=== PATIENT | female | born 1980 | race Caucasian/White ===

== ENCOUNTER 2020-10-19 14:53 | Emergency (ER) | payer OTHER, SELFPAY ==
--- NOTE | ~2020-10-19 | XR_ITS ---
EXAMINATION: XR ANKLE, LEFT CLINICAL INFORMATION: Injury. COMPARISON: None TECHNIQUE: AP, lateral, and mortise views of the left ankle. FINDINGS: Diffuse ankle soft tissue swelling. There is a mildly displaced transverse fracture of the lateral malleolus with intra-articular extension. No definite medial or posterior malleolar fractures identified. There is slight widening of the lateral clear space of the ankle mortise. Tibiotalar joint effusion. Base of the 5th metatarsal and anterior process of the calcaneus are intact. Os trigonum. Achilles tendon insertional enthesopathy. XR/XR ankle LT min 3V IMPRESSION: Mild ankle soft tissue swelling. Mildly displaced intra-articular transverse fracture of the lateral malleolus. Tibiotalar joint effusion. Mild widening of the lateral aspect of the ankle mortise.
[2020-10-19 15:10] VITALS: BP 131/79; PULSE 100; RESP 18; TEMP 36.7; O2SAT 96; BMI 80.6
--- NOTE | 2020-10-19 16:10 | ED_ITS ---
HPI - Extremity Injury (Lower) General Chief Complaint: Extremity Injury, Lower Stated Complaint: left ankle inj Time Seen by Provider: 10/19/20 15:09 History of Present Illness HPI Narrative: Patient complains of left ankle injury today when she tripped on her dog and twisted her ankle, no other injury no head injury no neck pain no back pain Related Data Previous Rx's Medication Instructions Recorded ibuprofen 600 mg PO Q6H PRN #20 tab 10/19/20 walker #1 ea 10/19/20 Allergies Allergy/AdvReac Type Severity Reaction Status Date / Time No Known Allergies Allergy Verified 10/19/20 15:09 Review of Systems Review of Systems: Positive for left ankle pain and swelling Negatives are no dizziness no weakness no fainting no head injury no neck pain no headache no nausea vomiting no rib pain no chest pain no numbness weakness or tingling Yes all other systems are reviewed and are negative ON LICENSE OF [facility] Past Medical History Source: nursing notes reviewed Medical History (Updated 10/19/20 @ 16:20 by NADINE Castellanos) Fibromyalgia Social History Social History Advance Directives: No Advance Directives Information Provided: No Physical Exam Vital Signs: Vital Signs: Last Vital Signs Temp 98.0 F 10/19/20 15:10 Pulse 100 10/19/20 15:10 Resp 18 10/19/20 15:10 BP 131/79 10/19/20 15:10 Pulse Ox 96 10/19/20 15:10 Body Mass Index 80.6 Patient is sitting in a chair, no acute distress comfortable relaxed cooperative A&O x3 Head is normocephalic atraumatic Neck is supple and nontender Respiratory no respiratory distress Extremities the left ankle lateral malleolus is tender and very swollen with some mild ecchymosis, the left knee has no tenderness has full range of motion no swelling, no tenderness over fibula head Other extremities are normal Neural no sensory deficit, no motor deficit Course Course Course Narrative: X-ray showed mildly displaced intra-articular transverse fracture of the lateral malleolus, it showed an effusion and it showed mild widening of the lateral aspect of the ankle mortise Patient is given boot and a walker as she could not ambulate well with crutches and will follow with Orthopedics Discharge Plan Discharge Clinical Impression: Ankle fracture Qualifiers: Encounter type: initial encounter Fracture type: closed Laterality: left Qualified Code(s): S82.892A - Other fracture of left lower leg, initial encounter for closed fracture Patient Disposition: Home, Self-Care Additional Instructions: Follow with orthopedist this week Return any time any concerns Prescriptions: New ibuprofen 600 mg tablet 600 mg PO Q6H PRN (Reason: pain) Qty: 20 RF: 0 (DME) walker Misc See Rx Instructions .ROUTE .MEDSUPPLY Qty: 1 RF: 0 Referrals: Valarie Bennett MD [Physician] - 2 days (Patient with mildly displaced fracture of the lateral malleolus with a widening of the ankle mortise)
== END 2020-10-19 16:36 | disposition home or self-care (01) ==
PROVIDERS: Emergency Provider Emergency Medicine Emergency Medical Services
DX: S82.892A Other fracture of left lower leg, initial encounter for closed fracture (principal); M79.662 Pain in left lower leg; W01.0XXA Fall on same level from slipping, tripping and stumbling without subsequent striking against object, initial encounter; Y93.K1 Activity, walking an animal; Y92.480 Sidewalk as the place of occurrence of the external cause; Y99.8 Other external cause status
CPT/HCPCS: 73610; 99283

== ENCOUNTER → 2020-10-26 13:36 | Outpatient (BNVA) | payer OTHER, SELFPAY | PROVIDERS: Visit Provider Physician Assistant | DX: S82.832A Other fracture of upper and lower end of left fibula, initial encounter for closed fracture (principal) | CPT/HCPCS: 99202 ==

== ENCOUNTER 2020-11-13 08:29 | Outpatient (REF) | payer OTHER, SELFPAY | END 2020-11-13 08:30 | disposition home or self-care (01) | LOC: HO.HOSX 08:29 | PROVIDERS: Visit Provider Physician Assistant | DX: Z13.89 Encounter for screening for other disorder (principal) ==

== ENCOUNTER 2021-02-01 16:46 | Emergency (ER) | payer MEDICARE, SELFPAY ==
--- NOTE | ~2021-02-01 | US_ITS ---
EXAMINATION: PELVIC ULTRASOUND CLINICAL INFORMATION: Vaginal bleeding COMPARISON: None TECHNIQUE: Both transabdominal and endovaginal scanning was performed. FINDINGS: An anteverted anteflexed uterus is present measuring 8.7 x 4.0 x 4.9 cm. The endometrium measured 1 cm in thickness. The ovaries were seen. Transabdominal exam only. Right measures 2.5 x 2.1 x 2.3 cm for a volume of 6.3 mL and appeared normal. The left measured 2.8 x 2.4 x 2.2 cm from 7.7 mL and appeared normal. No free fluid was present in the cul-de-sac US/US pelvic and transvaginal IMPRESSION: No significant abnormality is seen.
[2021-02-01 18:07] VITALS: BP 132/70; PULSE 90; RESP 18; TEMP 37.1; O2SAT 100; BMI 39.4
[2021-02-01 18:47] LABS: Basophils Percent Auto 0.6 % (0-2); Eosinophils Absolute Auto 0.1 X10*3/uL (0.0-0.4); Eosinophils Percent Auto 1.5 % (0-4); Hematocrit 37.3 % (37-47); Hemoglobin 12.1 g/dl (12.0-16.0); Imm Gran Abs Auto 0.03 X10*3/uL (0.00-0.03); Imm Gran Pct Auto 0.5 % (0.0-0.4); Lymphocytes Absolute Auto 1.7 X10*3/uL (1.2-4.9); Lymphocytes Percent Auto 26.2 % (20-40); MANUAL DIFF FLAG NO; Mean Corpuscular HGB Conc 32.4 g/dl (31.0-35.0); Mean Corpuscular Hemoglobin 28.2 pg (27.0-33.0); Mean Corpuscular Volume 86.9 fL (80-98); Mean Platelet Volume 9.2 fL (9.4-12.3); Monocytes Absolute Auto 0.4 X10*3/uL (0.1-1.2); Monocytes Percent Auto 5.7 % (2-11); Neutrophils Absolute Auto 4.3 X10*3/uL (2.0-8.3); Neutrophils Percent Auto 65.5 % (45-73); Platelet Count 297 X10*3/uL (160-400); Red Blood Count 4.29 X10*6/uL (4.20-5.50); Red Cell Distribution Width 13.1 % (11.0-16.0); White Blood Count 6.6 X10*3/uL (4.8-10.8)
[2021-02-01 19:11] LABS: Anion Gap 12 (12-20); Blood Urea Nitrogen 6 mg/dL (9-16); Calcium 8.5 mg/dL (8.4-10.2); Carbon Dioxide 27 mmol/L (22-29); Chloride 106 mmol/L (96-108); Creatinine Clr Calc Pharmacy 115.8; Estimated Glomerular Filt Rate > 60; Glucose Random 98 mg/dL (60-115); Sodium 141 mmol/L (135-145)
[2021-02-01 20:00] VITALS: BP 106/75; PULSE 85; RESP 16; TEMP 37.1; O2SAT 98
--- NOTE | 2021-02-01 20:09 | ED.FEMALEGU ---
HPI - Female Genitourinary General Chief complaint: Vaginal Bleeding Stated complaint: vaginal bleeding Source: patient Mode of arrival: ambulatory Limitations: no limitations History of Present Illness HPI Narrative: 40-year-old female presents with abnormal vaginal bleeding for approximately 1 week. States that she has been going through 2 pads and tampons per hour for the past several days. She also reports large dark blood clots. She had a similar episode approximately 2 months ago which resolved on its own. She does not report any vaginal trauma or sexually transmitted infections, denies abnormal vaginal discharge. She does not report fevers, chills, abdominal pain or distention, dysuria, nausea vomiting diarrhea constipation, edema, shortness of breath, shortness breath on exertion, or any other concerning symptoms. MD elicited complaint: vaginal bleeding Onset (ago): week(s) (1) Location of symptoms: vaginal Severity: moderate Severity scale (1-10): 3 Quality of pain: cramping Consistency: intermittent Vaginal discharge: none Vaginal bleeding: heavy, dark red and clots Exacerbating factors: movement Relieving factors: none Associated symptoms: denies other symptoms Sexual activity: Yes Patient : No Related Data Home Medications Medication Instructions Recorded Confirmed amitriptyline 100 mg tablet 100 mg PO BEDTIME 10/26/20 losartan 50 mg tablet 50 mg PO DAILY 10/26/20 omeprazole 20 mg capsule,delayed 20 mg PO DAILY 10/26/20 release zolpidem 10 mg tablet 10 mg PO BEDTIME PRN 10/26/20 Previous Rx's Medication Instructions Recorded ibuprofen 600 mg PO Q6H PRN #20 tab 10/19/20 walker #1 ea 10/19/20 ibuprofen 800 mg tablet 800 mg PO Q6-8H PRN 30 Days #120 10/26/20 tab Allergies Allergy/AdvReac Type Severity Reaction Status Date / Time No Known Allergies Allergy Verified 02/01/21 18:07 Review of Systems Review of Systems: Constitutional: No Fever, No Chills ENT/Mouth: No sore throat, No Rhinorrhea Eyes: No Eye Pain, No Redness Cardiovascular: No Chest Pain, No SOB Respiratory: No Cough, No Sputum, No Wheezing Gastrointestinal: No Nausea, No Vomiting, No Diarrhea, positive abdominal cramping pain Genitourinary: positive irregular bleeding, No Dysuria, No Urinary Frequency, positive pelvic pain Musculoskeletal: No Myalgias Skin: No rash Neuro: No Weakness, No Headache Psych: No Anxiety/Panic, No Depression Heme/Lymph: No bruising, No Lymphadenopathy Endocrine: No Polyuria, No Polydipsia Yes all other systems are reviewed and are negative [facility] Past Medical History Attestation statement: The following information was validated with the patient. Source: old records reviewed Medical History Fibromyalgia Hypertension IBS (irritable bowel syndrome) Social History Social History Alcohol intake: never Advance Directives: No Advance Directives Information Provided: No Patient : No Current occupational status: disabled Physical Exam Vital Signs: Vital Signs: Last Vital Signs Temp 98.2 F 02/01/21 21:22 Pulse 72 02/01/21 22:00 Resp 16 02/01/21 22:00 BP 138/76 02/01/21 22:00 Pulse Ox 97 02/01/21 22:00 Body Mass Index 39.4 Appearance: Alert. Oriented X3. No acute distress. Eyes: Pupils equal, round and reactive to light. ENT: Pharynx normal. Neck: Normal inspection. Neck supple. CVS: Normal heart rate and rhythm. Pulses normal. Respiratory: No respiratory distress. Breath sounds normal. Abdomen: Soft and nontender. Obese. Skin: Skin warm and dry. Normal skin color. Normal skin turgor. Extremities: No lower extremity edema. Neuro: No motor deficit. No sensory deficit. : External Female Exam: normal external appearance Speculum Exam - Vagina: normal appearance of the vagina and abnormal vaginal discharge bloody Speculum Exam - Cervix: normal appearance of the cervix, normal palpation and Cervical os closed Bimanual exam- vagina & uterus: normal bimanual exam, normal palpation, non-tender, no cervical motion tenderness and not enlarged Bimanual Exam- Adnexa, other: normal adnexae Course Course Course Narrative: 40-year-old female presents with abnormal vaginal bleeding. Pelvic exam completed, RN as emergency room doctor. Cervical os is normal, no tissue in the os noted. No bleeding noted, scant amount of blood in the vaginal vault. No clotting. Patient does not report any risk of sexually transmitted infection, denies vaginal trauma. Will order pelvic ultrasound. Pelvic ultrasound is normal. Patient will follow-up with Dr. Alvarado for abnormal uterine bleeding. Patient is not anemic, H&H 12.1/37.3. HCG is negative. Patient verbalized understanding of and agrees to plan of care discharge home. MDM - Female Genitourinary MDM Narrative Medical decision making narrative: Dysfunction uterine bleeding, fibroids, uterine mass Medical Records Attestation: I reviewed the patient's medical records. Lab Data Attestation: I reviewed the patient's lab results. Result diagrams: 02/01/21 18:32 02/01/21 18:32 Labs: Lab Results 02/01/21 02/01/21 02/01/21 Range/Units 18:32 18:32 18:32 WBC 6.6 (4.8-10.8) X10*3/uL RBC 4.29 (4.20-5.50) X10*6/uL Hgb 12.1 (12.0-16.0) g/dl Hct 37.3 (37-47) % MCV 86.9 (80-98) fL MCH 28.2 (27.0-33.0) pg MCHC 32.4 (31.0-35.0) g/dl RDW 13.1 (11.0-16.0) % Plt Count 297 (160-400) X10*3/uL MPV 9.2 L (9.4-12.3) fL Immature Gran % (Auto) 0.5 H (0.0-0.4) % Neut % (Auto) 65.5 (45-73) % Lymph % (Auto) 26.2 (20-40) % [place] % (Auto) 5.7 (2-11) % Eos % (Auto) 1.5 (0-4) % Baso % (Auto) 0.6 (0-2) % Lymph # (Auto) 1.7 (1.2-4.9) X10*3/uL [place] # (Auto) 0.4 (0.1-1.2) X10*3/uL Eos # (Auto) 0.1 (0.0-0.4) X10*3/uL Baso # (Auto) 0.0 (0.0-0.2) X10*3/uL Abs Immat Gran (auto) 0.03 (0.00-0.03) X10*3/uL Absolute Neuts (auto) 4.3 (2.0-8.3) X10*3/uL Absolute Nucleated RBC 0.000 (0.0-0.012) X10*3/uL Nucleated RBC % (auto) 0.0 (0.0-0.2) /100WBC Sodium 141 (135-145) mmol/L Potassium 4.0 (3.3-5.1) mmol/L Chloride 106 (96-108) mmol/L Carbon Dioxide 27 (22-29) mmol/L Anion Gap 12 (12-20) BUN 6 L (9-16) mg/dL Creatinine 0.76 (0.5-1.4) mg/dL Estim Creat Clear Calc 115.8 Estimated GFR > 60 Random Glucose 98 (60-115) mg/dL Calcium 8.5 (8.4-10.2) mg/dL Beta HCG, Quant < 2 mIU/mL Urine Color Urine Appearance Urine pH (5.0-8.0) Ur Specific [place] (1.005-1.025) Urine Protein (NEG-TRACE) MG/DL Urine Glucose (UA) (NEG) MG/DL Urine Ketones (NEG) MG/DL Urine Blood (NEG) Urine Nitrite (NEG) Ur Leukocyte Esterase (NEG) Urine RBC (0) /HPF Urine WBC (0-4) /HPF Ur Squamous Epith Cells /LPF Urine Bacteria /LPF Urine Mucus /LPF 02/01/21 Range/Units 21:24 WBC (4.8-10.8) X10*3/uL RBC (4.20-5.50) X10*6/uL Hgb (12.0-16.0) g/dl Hct (37-47) % MCV (80-98) fL MCH (27.0-33.0) pg MCHC (31.0-35.0) g/dl RDW (11.0-16.0) % Plt Count (160-400) X10*3/uL MPV (9.4-12.3) fL Immature Gran % (Auto) (0.0-0.4) % Neut % (Auto) (45-73) % Lymph % (Auto) (20-40) % [place] % (Auto) (2-11) % Eos % (Auto) (0-4) % Baso % (Auto) (0-2) % Lymph # (Auto) (1.2-4.9) X10*3/uL [place] # (Auto) (0.1-1.2) X10*3/uL Eos # (Auto) (0.0-0.4) X10*3/uL Baso # (Auto) (0.0-0.2) X10*3/uL Abs Immat Gran (auto) (0.00-0.03) X10*3/uL Absolute Neuts (auto) (2.0-8.3) X10*3/uL Absolute Nucleated RBC (0.0-0.012) X10*3/uL Nucleated RBC % (auto) (0.0-0.2) /100WBC Sodium (135-145) mmol/L Potassium (3.3-5.1) mmol/L Chloride (96-108) mmol/L Carbon Dioxide (22-29) mmol/L Anion Gap (12-20) BUN (9-16) mg/dL Creatinine (0.5-1.4) mg/dL Estim Creat Clear Calc Estimated GFR Random Glucose (60-115) mg/dL Calcium (8.4-10.2) mg/dL Beta HCG, Quant mIU/mL Urine Color PINK Urine Appearance CLOUDY Urine pH 6.5 (5.0-8.0) Ur Specific [place] 1.020 (1.005-1.025) Urine Protein 1+ H (NEG-TRACE) MG/DL Urine Glucose (UA) NEG (NEG) MG/DL Urine Ketones NEG (NEG) MG/DL Urine Blood 3+ H (NEG) Urine Nitrite NEG (NEG) Ur Leukocyte Esterase NEG (NEG) Urine RBC 76-150 H (0) /HPF Urine WBC 0 (0-4) /HPF Ur Squamous Epith Cells 2+ /LPF Urine Bacteria NONE /LPF Urine Mucus 2+ /LPF Imaging Data Pelvic ultrasound: Attestation: I personally reviewed and interpreted this imaging study as follows: Radiologist's impression: TECHNIQUE: Both transabdominal and endovaginal scanning was performed. FINDINGS: An anteverted anteflexed uterus is present measuring 8.7 x 4.0 x 4.9 cm. The endometrium measured 1 cm in thickness. The ovaries were seen. Transabdominal exam only. Right measures 2.5 x 2.1 x 2.3 cm for a volume of 6.3 mL and appeared normal. The left measured 2.8 x 2.4 x 2.2 cm from 7.7 mL and appeared normal. No free fluid was present in the cul-de-sac US/US pelvic and transvaginal IMPRESSION: No significant abnormality is seen. Discharge Plan Discharge Clinical Impression: Dysfunctional uterine bleeding Patient Disposition: Home, Self-Care Instructions: Dysfunctional Uterine Bleeding (ED) Additional Instructions: You were evaluated for abnormal vaginal bleeding. Your pelvic exam was normal, the pelvic ultrasound that was completed was also normal. Please follow-up with OBGYN, I referred you to Dr Alvarado. Please call and request an appointment. Thank you for choosing this emergency department for evaluation. Please follow-up with primary care physician as needed. Return to the emergency department for any new, concerning, or worsening symptoms. Prescriptions: No Action ibuprofen 800 mg tablet 800 mg PO Q6-8H PRN (Reason: pain) 30 Days Qty: 120 RF: 0 ibuprofen 600 mg tablet 600 mg PO Q6H PRN (Reason: pain) Qty: 20 RF: 0 (DME) walker Misc See Rx Instructions .ROUTE .MEDSUPPLY Qty: 1 RF: 0 Referrals: Arnie Alvarado MD [Physician] - 2 days (Dysfunction uterine bleeding) Interventions: ED Discharge Assessment Last Done: 02/01/21 22:39 Discharge Date/Time: 02/01/21 22:39
--- NOTE | 2021-02-01 20:15 | PC.NURSE ---
Pelvic exam with speculum performed at the bedside by AHMET Luong. No abnormalities noted at this time. No pain with exam. Plan to obtain labs and ultrasound. Will continue to monitor.
[2021-02-01 20:36] LABS: HCG Quantitative < 2 mIU/mL
[2021-02-01 21:22] VITALS: BP 113/71; PULSE 83; RESP 16; TEMP 36.8; O2SAT 99
[2021-02-01 21:33] LABS: Glucose Urine UA NEG (NEG); Leukocyte Esterase Urine NEG (NEG); Nitrite Urine NEG (NEG); PH 6.5 (5.0-8.0); Urine Blood 3+ (NEG); Urine Ketones NEG (NEG); Urine Protein 1+ MG/DL (NEG-TRACE)
[2021-02-01 21:35] LABS: Appearance Urine CLOUDY; Color Urine PINK; WBC Urine 0 /HPF (0-4)
[2021-02-01 21:36] LABS: Mucus Urine 2+ /LPF; Squamous Epithelial Cell Urine 2+ /LPF
[2021-02-01 22:00] VITALS: BP 138/76; PULSE 72; RESP 16; O2SAT 97
== END 2021-02-01 22:39 | disposition home or self-care (01) ==
PROVIDERS: Nurse Practitioner Family; Emergency Provider Internal Medicine
DX: N93.8 Other specified abnormal uterine and vaginal bleeding (principal); I10 Essential (primary) hypertension
CPT/HCPCS: 36415; 76830; 76856; 80048; 81001; 84702; 85025; 99283; 99284

== ENCOUNTER 2022-10-15 13:18 | Inpatient (IN) | payer MEDICARE, MEDICAID, SELFPAY ==
--- NOTE | ~2022-10-15 | XR_ITS ---
EXAMINATION: XR ANKLE, RIGHT CLINICAL INFORMATION: Right ankle fracture. COMPARISON: None TECHNIQUE: AP, lateral, and mortise views of the right ankle. FINDINGS: Mildly displaced transversely oriented distal fibular fracture. Ankle mortise is congruent. Talar dome intact. Soft tissue swelling about the ankle. Moderate posterior calcaneal enthesophyte. XR/XR ankle RT 2V IMPRESSION: Mildly displaced transversely oriented distal fibular fracture, compatible with a supination-abduction inversion injury.
[2022-10-15 13:23] VITALS: BP 146/92; PULSE 134; RESP 16; TEMP 36.8; O2SAT 98; BMI 40.5
--- NOTE | 2022-10-15 13:24 | ED_ITS ---
HPI - Psych General Chief Complaint: Psychiatric Symptoms <NADINE Urena - Last Filed: 10/15/22 13:32> Stated Complaint: crisis <NADINE Urena - Last Filed: 10/15/22 13:32> Time Seen by Provider: 10/15/22 13:39 <NADINE Urena - Last Filed: 10/15/22 13:32> Source: other (Patient's nurse and triage note) <Danni Noonan MD - Last Filed: 10/15/22 21:38> Mode of arrival: ambulatory <Danni Noonan MD - Last Filed: 10/15/22 21:38> Limitations: no limitations <Danni Noonan MD - Last Filed: 10/15/22 21:38> History of Present Illness HPI Narrative: Patient comes to the emergency room accompanied by her boyfriend. Seems the patient attempted suicide several days ago by ingesting several tablets metoprolol. Patient was seen at [facility] and discharge. Today, patient attempted taking a bottle of metoprolol with intention of ending her life. However, her boyfriend stopped her from doing so. Patient did not ingest any tablets. History for H&P has been obtained from the patient's nurse and triage notes. Patient is in her room, seems very distressed, states that the voices are very loud and telling her that they want to hurt her. Patient screaming in the room, yelling back at the voices <Danni Noonan MD - Last Filed: 10/15/22 21:38> Related Data Home Medications: Home Medications Medication Instructions Recorded Confirmed metoprolol tartrate 25 mg tablet 1 tab PO BID 10/15/22 10/15/22 Previous Rx's Medication Instructions Recorded ibuprofen 600 mg tablet 600 mg PO Q6H PRN pain #20 tabs 10/19/20 walker #1 ea 10/19/20 <NADINE Urena - Last Filed: 10/15/22 13:32> Allergies/Adverse Reactions: Allergies Allergy/AdvReac Type Severity Reaction Status Date / Time oxaprozin [From Daypro] Allergy Rash Verified 10/15/22 13:34 Sulfa (Sulfonamide Allergy Rash Verified 10/15/22 13:33 Antibiotics) tramadol [From Ultram] Allergy Rash Verified 10/15/22 13:34 <NADINE Urena - Last Filed: 10/15/22 13:32> Review of Systems Review of Systems: Yes Unobtainable due to mental condition <Danni Noonan MD - Last Filed: 10/15/22 21:38> [facility] Past Medical History Medical History: Medical History (Updated 10/15/22 @ 17:54 by Danni Noonan MD) Fibromyalgia Hypertension IBS (irritable bowel syndrome) Suicide attempt <NADINE Urena - Last Filed: 10/15/22 13:32> Social History Social History: Social History Alcohol intake: never Advance Directives: No Advance Directives Information Provided: No Current occupational status: disabled <NADINE Urena - Last Filed: 10/15/22 13:32> Physical Exam Vital Signs: Vital Signs: Last Vital Signs Temp 98.3 F 10/15/22 20:41 Pulse 114 H 10/15/22 20:41 Resp 20 10/15/22 20:41 BP 148/88 H 10/15/22 20:41 Pulse Ox 95 10/15/22 20:41 O2 Del Method 10/15/22 20:41 BMI result Body Mass Index 40.5 <NADINE Urena - Last Filed: 10/15/22 13:32> Vital Signs: Last Vital Signs Temp 98.3 F 10/15/22 20:41 Pulse 114 H 10/15/22 20:41 Resp 20 10/15/22 20:41 BP 148/88 H 10/15/22 20:41 Pulse Ox 95 10/15/22 20:41 O2 Del Method 10/15/22 20:41 BMI result Body Mass Index 40.5 <Danni Noonan MD - Last Filed: 10/15/22 21:38> Const: Other: Appearance: Alert. Since very distressed, yelling at the voices that she is hearing telling them to shut up Eyes: Pupils equal, round and reactive to light. ENT: Pharynx normal. Neck: Normal inspection. Neck supple. No lymph nodes noted. No crepitus CVS: Tachycardic, regular rhythm, Pulses normal. Normal S1 and S2 Respiratory: No respiratory distress. Breath sounds normal. No Wheezing. No rales Abdomen: Soft and nontender. No rigidity. No distention. Skin: Skin warm and dry. Normal skin color. Normal skin turgor. Extremities: No lower extremity edema. No Lacerations. No Rash Neuro: Cranial nerves 2-12 grossly intact Psych: Very anxious, seems that patient is hearing voice actively and is responding to them by yelling at the voices <Danni Noonan MD - Last Filed: 10/15/22 21:38> Course Course Course Narrative: RME: 42 y/o F, with a PMHx of schizophrenia last hospitalized at [facility] in March, here for evaluation of suicidal attempt two nights ago and auditory hallucinations. Partner states that she took 12 tablets of metoprolol two nights ago attempt to end her life and was seen at [facility]. Pt reports that she gets monthly psychiatric injections but has missed the last two months. Partner states that she does not use illicit drugs or alcohol. Currently on crutches s/p fall on 10/07. HR 130s, actively responding to internal stimuli. Labs ordered for medical clearance. Will need to see CARE team, to go to POD directly. PO Zyprexa ordered for now. <NADINE Urena - Last Filed: 10/15/22 13:32> Medications Administered Generic Name Dose Route Start Last Admin Trade Name Freq PRN Reason Stop Dose Admin Cefuroxime Axetil 500 mg 10/15/22 21:00 10/15/22 20:43 Cefuroxime Axetil 500 Mg Tablet PO 500 mg BID IAM Administration Metoprolol Tartrate 25 mg 10/15/22 21:00 10/15/22 20:43 Metoprolol Tartrate 25 Mg Tablet PO 25 mg BID IAM Administration Protocol Discontinued Medications Generic Name Dose Route Start Last Admin Trade Name Freq PRN Reason Stop Dose Admin Diphenhydramine HCl 50 mg 10/15/22 14:47 10/15/22 15:02 Diphenhydramine Hcl 25 Mg Capsule PO 10/15/22 14:48 50 mg ONCE ONE Administration Haloperidol 5 mg 10/15/22 14:47 10/15/22 15:02 Haloperidol 5 Mg Tablet PO 10/15/22 14:48 5 mg ONCE ONE Administration Lorazepam 2 mg 10/15/22 14:47 10/15/22 15:02 Lorazepam 1 Mg Tablet PO 10/15/22 14:48 2 mg ONCE ONE Administration Olanzapine 5 mg 10/15/22 13:32 10/15/22 14:16 Olanzapine 5 Mg Tablet PO 10/15/22 13:33 5 mg ONCE ONE Administration <NADINE Urena - Last Filed: 10/15/22 13:32> Medications Administered Generic Name Dose Route Start Last Admin Trade Name Freq PRN Reason Stop Dose Admin Cefuroxime Axetil 500 mg 10/15/22 21:00 10/15/22 20:43 Cefuroxime Axetil 500 Mg Tablet PO 500 mg BID IAM Administration Metoprolol Tartrate 25 mg 10/15/22 21:00 10/15/22 20:43 Metoprolol Tartrate 25 Mg Tablet PO 25 mg BID IAM Administration Protocol Discontinued Medications Generic Name Dose Route Start Last Admin Trade Name Freq PRN Reason Stop Dose Admin Diphenhydramine HCl 50 mg 10/15/22 14:47 10/15/22 15:02 Diphenhydramine Hcl 25 Mg Capsule PO 10/15/22 14:48 50 mg ONCE ONE Administration Haloperidol 5 mg 10/15/22 14:47 10/15/22 15:02 Haloperidol 5 Mg Tablet PO 10/15/22 14:48 5 mg ONCE ONE Administration Lorazepam 2 mg 10/15/22 14:47 10/15/22 15:02 Lorazepam 1 Mg Tablet PO 10/15/22 14:48 2 mg ONCE ONE Administration Olanzapine 5 mg 10/15/22 13:32 10/15/22 14:16 Olanzapine 5 Mg Tablet PO 10/15/22 13:33 5 mg ONCE ONE Administration <Danni Noonan MD - Last Filed: 10/15/22 21:38> Medical Decision Making Medical Decision Making MDM Narrative: -separate sh was ordered from triage, patient took p.o. however, patient is still hearing voices, patient is very agitated by the voices she is hearing. P.o. Haldol, Ativan and Benadryl were given to the patient which she took willingly. -of patient's labs are pending -patient is on a Section 12 -care team consult pending -physician observation started at 15:13 -patient has UTI, patient being given p.o. cefuroxime. -21:37, care team evaluated the patient, recommends inpatient bed search. As mentioned above, patient is already on a Section 12 <Danni Noonan MD - Last Filed: 10/15/22 21:38> Differential Diagnosis Differential Diagnoses: The differential diagnosis associated with the presentation includes (Anxiety, depression, schizophrenia, substance abuse) <Danni Noonan MD - Last Filed: 10/15/22 21:38> Admission/Observation Consideration of admission/observation: Escalation of care including admission/observation considered (Patient is on a Section 12, waiting to be seen by behavioral health network. Unlikely that the patient will be discharged) <Danni Noonan MD - Last Filed: 10/15/22 21:38> Lab Data Result Diagrams: 10/15/22 16:30 10/15/22 16:30 <NADINE Urena - Last Filed: 10/15/22 13:32> Labs: Lab Results 10/15/22 10/15/22 10/15/22 Range/Units 01:31 14:14 14:14 WBC (4.8-10.8) X10*3/uL RBC (4.20-5.50) X10*6/uL Hgb (12.0-16.0) g/dl Hct (37.0-47.0) % MCV (80.0-98.0) fL MCH (27.0-33.0) pg MCHC (31.0-35.0) g/dl RDW (11.0-16.0) % Plt Count (160-400) X10*3/uL MPV (9.4-12.3) fL Immature Gran % (Auto) (0.0-0.4) % Neut % (Auto) (45-73) % Lymph % (Auto) (20-40) % Alexander % (Auto) (2-11) % Eos % (Auto) (0-4) % Baso % (Auto) (0-2) % Lymph # (Auto) (1.2-4.9) X10*3/uL Alexander # (Auto) (0.1-1.2) X10*3/uL Eos # (Auto) (0.0-0.4) X10*3/uL Baso # (Auto) (0.0-0.2) X10*3/uL Abs Immat Gran (auto) (0.00-0.03) X10*3/uL Absolute Neuts (auto) (2.0-8.3) x10*3/uL Absolute Nucleated RBC (0.0-0.012) X10*3/uL Nucleated RBC % (auto) (0.0-0.2) /100WBC Sodium (135-145) mmol/L Potassium (3.3-5.1) mmol/L Chloride (96-108) mmol/L Carbon Dioxide (22-29) mmol/L Anion Gap (12-20) BUN (9-16) mg/dL Creatinine (0.5-1.4) mg/dL Estim Creat Clear Calc Estimated GFR Random Glucose (60-115) mg/dL Calcium (8.4-10.2) mg/dL Magnesium (1.6-2.6) mg/dL Total Bilirubin (0.0-1.0) mg/dL Direct Bilirubin (0.0-0.5) mg/dL AST (5-31) U/L ALT (0-31) U/L Alkaline Phosphatase (39-117) U/L Total Protein (6.5-8.0) g/dL Albumin (3.5-5.0) g/dL Urine Color Yellow Urine Appearance Turbid Urine pH 5.5 (5.0-9.0) Ur Specific [place] 1.020 (1.005-1.025) Urine Protein Negative (Neg-Trace) mg/dL Urine Glucose (UA) Negative (Negative) mg/dL Urine Ketones 15 (Negative) mg/dL Urine Blood Trace H (Negative) Urine Nitrite Positive H (Negative) Ur Leukocyte Esterase Large (3+) H (Negative) Urine RBC 0-2 (0-2) /HPF Urine WBC >50 H (0-5) /HPF Ur Squamous Epith Cells 11-20 (0-2) /HPF Urine Bacteria 4+ (None Seen) Hyaline Casts 11-20 (0-2) /LPF Urine Test NEGATIVE (NEGATIVE) Salicylates (15-30) mg/dL Urine Opiates Screen (Not Detect) Urine Fentanyl Screen (Not Detect) Acetaminophen (<30) mcg/mL Ur Barbiturates Screen (Not Detect) Ur Phencyclidine Scrn (Not Detect) Ur Amphetamines Screen (Not Detect) U Benzodiazepines Scrn (Not Detect) Urine Cocaine Screen (Not Detect) U Marijuana (THC) Screen (Not Detect) Ethyl Alcohol mg/dL COVID-19 (CELINE) Negative (Negative) COVID-19 Clin Com See Note 10/15/22 10/15/22 10/15/22 Range/Units 14:14 16:30 16:30 WBC 6.6 (4.8-10.8) X10*3/uL RBC 4.63 (4.20-5.50) X10*6/uL Hgb 10.9 L (12.0-16.0) g/dl Hct 35.6 L (37.0-47.0) % MCV 76.9 L (80.0-98.0) fL MCH 23.5 L (27.0-33.0) pg MCHC 30.6 L (31.0-35.0) g/dl RDW 15.0 (11.0-16.0) % Plt Count 358 (160-400) X10*3/uL MPV 8.9 L (9.4-12.3) fL Immature Gran % (Auto) 0.3 (0.0-0.4) % Neut % (Auto) 73.9 H (45-73) % Lymph % (Auto) 20.3 (20-40) % Alexander % (Auto) 4.4 (2-11) % Eos % (Auto) 0.5 (0-4) % Baso % (Auto) 0.6 (0-2) % Lymph # (Auto) 1.3 (1.2-4.9) X10*3/uL Alexander # (Auto) 0.3 (0.1-1.2) X10*3/uL Eos # (Auto) 0.0 (0.0-0.4) X10*3/uL Baso # (Auto) 0.0 (0.0-0.2) X10*3/uL Abs Immat Gran (auto) 0.02 (0.00-0.03) X10*3/uL Absolute Neuts (auto) 4.9 (2.0-8.3) x10*3/uL Absolute Nucleated RBC 0.000 (0.0-0.012) X10*3/uL Nucleated RBC % (auto) 0.0 (0.0-0.2) /100WBC Sodium 141 (135-145) mmol/L Potassium 4.2 (3.3-5.1) mmol/L Chloride 105 (96-108) mmol/L Carbon Dioxide 26 (22-29) mmol/L Anion Gap 14 (12-20) BUN 11 (9-16) mg/dL Creatinine 0.87 (0.5-1.4) mg/dL Estim Creat Clear Calc 100.6 Estimated GFR > 60 Random Glucose 114 (60-115) mg/dL Calcium 9.2 D (8.4-10.2) mg/dL Magnesium 2.0 (1.6-2.6) mg/dL Total Bilirubin 0.4 (0.0-1.0) mg/dL Direct Bilirubin < 0.2 (0.0-0.5) mg/dL AST 15 (5-31) U/L ALT 12 (0-31) U/L Alkaline Phosphatase 102 (39-117) U/L Total Protein 6.9 (6.5-8.0) g/dL Albumin 4.1 (3.5-5.0) g/dL Urine Color Urine Appearance Urine pH (5.0-9.0) Ur Specific [place] (1.005-1.025) Urine Protein (Neg-Trace) mg/dL Urine Glucose (UA) (Negative) mg/dL Urine Ketones (Negative) mg/dL Urine Blood (Negative) Urine Nitrite (Negative) Ur Leukocyte Esterase (Negative) Urine RBC (0-2) /HPF Urine WBC (0-5) /HPF Ur Squamous Epith Cells (0-2) /HPF Urine Bacteria (None Seen) Hyaline Casts (0-2) /LPF Urine Test (NEGATIVE) Salicylates < 5.0 L (15-30) mg/dL Urine Opiates Screen Not Detected (Not Detect) Urine Fentanyl Screen Not Detected (Not Detect) Acetaminophen < 17 (<30) mcg/mL Ur Barbiturates Screen Not Detected (Not Detect) Ur Phencyclidine Scrn Not Detected (Not Detect) Ur Amphetamines Screen Not Detected (Not Detect) U Benzodiazepines Scrn Not Detected (Not Detect) Urine Cocaine Screen POSITIVE H (Not Detect) U Marijuana (THC) Screen Not Detected (Not Detect) Ethyl Alcohol < 10 mg/dL COVID-19 (CELINE) (Negative) COVID-19 Clin Com <NADINE Urena - Last Filed: 10/15/22 13:32> Lab Results 10/15/22 10/15/22 10/15/22 Range/Units 01:31 14:14 14:14 WBC (4.8-10.8) X10*3/uL RBC (4.20-5.50) X10*6/uL Hgb (12.0-16.0) g/dl Hct (37.0-47.0) % MCV (80.0-98.0) fL MCH (27.0-33.0) pg MCHC (31.0-35.0) g/dl RDW (11.0-16.0) % Plt Count (160-400) X10*3/uL MPV (9.4-12.3) fL Immature Gran % (Auto) (0.0-0.4) % Neut % (Auto) (45-73) % Lymph % (Auto) (20-40) % Alexander % (Auto) (2-11) % Eos % (Auto) (0-4) % Baso % (Auto) (0-2) % Lymph # (Auto) (1.2-4.9) X10*3/uL Alexander # (Auto) (0.1-1.2) X10*3/uL Eos # (Auto) (0.0-0.4) X10*3/uL Baso # (Auto) (0.0-0.2) X10*3/uL Abs Immat Gran (auto) (0.00-0.03) X10*3/uL Absolute Neuts (auto) (2.0-8.3) x10*3/uL Absolute Nucleated RBC (0.0-0.012) X10*3/uL Nucleated RBC % (auto) (0.0-0.2) /100WBC Sodium (135-145) mmol/L Potassium (3.3-5.1) mmol/L Chloride (96-108) mmol/L Carbon Dioxide (22-29) mmol/L Anion Gap (12-20) BUN (9-16) mg/dL Creatinine (0.5-1.4) mg/dL Estim Creat Clear Calc Estimated GFR Random Glucose (60-115) mg/dL Calcium (8.4-10.2) mg/dL Magnesium (1.6-2.6) mg/dL Total Bilirubin (0.0-1.0) mg/dL Direct Bilirubin (0.0-0.5) mg/dL AST (5-31) U/L ALT (0-31) U/L Alkaline Phosphatase (39-117) U/L Total Protein (6.5-8.0) g/dL Albumin (3.5-5.0) g/dL Urine Color Yellow Urine Appearance Turbid Urine pH 5.5 (5.0-9.0) Ur Specific [place] 1.020 (1.005-1.025) Urine Protein Negative (Neg-Trace) mg/dL Urine Glucose (UA) Negative (Negative) mg/dL Urine Ketones 15 (Negative) mg/dL Urine Blood Trace H (Negative) Urine Nitrite Positive H (Negative) Ur Leukocyte Esterase Large (3+) H (Negative) Urine RBC 0-2 (0-2) /HPF Urine WBC >50 H (0-5) /HPF Ur Squamous Epith Cells 11-20 (0-2) /HPF Urine Bacteria 4+ (None Seen) Hyaline Casts 11-20 (0-2) /LPF Urine Test NEGATIVE (NEGATIVE) Salicylates (15-30) mg/dL Urine Opiates Screen (Not Detect) Urine Fentanyl Screen (Not Detect) Acetaminophen (<30) mcg/mL Ur Barbiturates Screen (Not Detect) Ur Phencyclidine Scrn (Not Detect) Ur Amphetamines Screen (Not Detect) U Benzodiazepines Scrn (Not Detect) Urine Cocaine Screen (Not Detect) U Marijuana (THC) Screen (Not Detect) Ethyl Alcohol mg/dL COVID-19 (CELINE) Negative (Negative) COVID-19 Clin Com See Note 10/15/22 10/15/22 10/15/22 Range/Units 14:14 16:30 16:30 WBC 6.6 (4.8-10.8) X10*3/uL RBC 4.63 (4.20-5.50) X10*6/uL Hgb 10.9 L (12.0-16.0) g/dl Hct 35.6 L (37.0-47.0) % MCV 76.9 L (80.0-98.0) fL MCH 23.5 L (27.0-33.0) pg MCHC 30.6 L (31.0-35.0) g/dl RDW 15.0 (11.0-16.0) % Plt Count 358 (160-400) X10*3/uL MPV 8.9 L (9.4-12.3) fL Immature Gran % (Auto) 0.3 (0.0-0.4) % Neut % (Auto) 73.9 H (45-73) % Lymph % (Auto) 20.3 (20-40) % Alexander % (Auto) 4.4 (2-11) % Eos % (Auto) 0.5 (0-4) % Baso % (Auto) 0.6 (0-2) % Lymph # (Auto) 1.3 (1.2-4.9) X10*3/uL Alexander # (Auto) 0.3 (0.1-1.2) X10*3/uL Eos # (Auto) 0.0 (0.0-0.4) X10*3/uL Baso # (Auto) 0.0 (0.0-0.2) X10*3/uL Abs Immat Gran (auto) 0.02 (0.00-0.03) X10*3/uL Absolute Neuts (auto) 4.9 (2.0-8.3) x10*3/uL Absolute Nucleated RBC 0.000 (0.0-0.012) X10*3/uL Nucleated RBC % (auto) 0.0 (0.0-0.2) /100WBC Sodium 141 (135-145) mmol/L Potassium 4.2 (3.3-5.1) mmol/L Chloride 105 (96-108) mmol/L Carbon Dioxide 26 (22-29) mmol/L Anion Gap 14 (12-20) BUN 11 (9-16) mg/dL Creatinine 0.87 (0.5-1.4) mg/dL Estim Creat Clear Calc 100.6 Estimated GFR > 60 Random Glucose 114 (60-115) mg/dL Calcium 9.2 D (8.4-10.2) mg/dL Magnesium 2.0 (1.6-2.6) mg/dL Total Bilirubin 0.4 (0.0-1.0) mg/dL Direct Bilirubin < 0.2 (0.0-0.5) mg/dL AST 15 (5-31) U/L ALT 12 (0-31) U/L Alkaline Phosphatase 102 (39-117) U/L Total Protein 6.9 (6.5-8.0) g/dL Albumin 4.1 (3.5-5.0) g/dL Urine Color Urine Appearance Urine pH (5.0-9.0) Ur Specific [place] (1.005-1.025) Urine Protein (Neg-Trace) mg/dL Urine Glucose (UA) (Negative) mg/dL Urine Ketones (Negative) mg/dL Urine Blood (Negative) Urine Nitrite (Negative) Ur Leukocyte Esterase (Negative) Urine RBC (0-2) /HPF Urine WBC (0-5) /HPF Ur Squamous Epith Cells (0-2) /HPF Urine Bacteria (None Seen) Hyaline Casts (0-2) /LPF Urine Test (NEGATIVE) Salicylates < 5.0 L (15-30) mg/dL Urine Opiates Screen Not Detected (Not Detect) Urine Fentanyl Screen Not Detected (Not Detect) Acetaminophen < 17 (<30) mcg/mL Ur Barbiturates Screen Not Detected (Not Detect) Ur Phencyclidine Scrn Not Detected (Not Detect) Ur Amphetamines Screen Not Detected (Not Detect) U Benzodiazepines Scrn Not Detected (Not Detect) Urine Cocaine Screen POSITIVE H (Not Detect) U Marijuana (THC) Screen Not Detected (Not Detect) Ethyl Alcohol < 10 mg/dL COVID-19 (CELINE) (Negative) COVID-19 Clin Com <Danni Noonan MD - Last Filed: 10/15/22 21:38> Discharge Plan Discharge Clinical Impression: Auditory hallucination, UTI (urinary tract infection) <NADINE Urena - Last Filed: 10/15/22 13:32> Patient Disposition: Still a Patient <NADINE Urena - Last Filed: 10/15/22 13:32> Prescriptions: No Action ibuprofen 600 mg tablet 600 mg PO Q6H PRN (Reason: pain) Qty: 20 0RF (DME) walker Misc See Rx Instructions .ROUTE .MEDSUPPLY Qty: 1 0RF Rx Instructions: As directed metoprolol tartrate 25 mg tablet 1 tab PO BID <NADINE Urena - Last Filed: 10/15/22 13:32>
[2022-10-15] MEDS: OLANZapine 5 MG TABLET PO (14:16)
[2022-10-15 14:35] LABS: UPreg QC Valid YES; Urine Pregnancy NEGATIVE (NEGATIVE)
[2022-10-15 14:42] LABS: COVID-19 Test Negative (Negative); IDNOW Serial# 16C4AD1C
[2022-10-15 14:48] VITALS: BP 120/78; PULSE 116; RESP 18; O2SAT 96
[2022-10-15 14:53] LABS: Appearance Urine Turbid; Color Urine Yellow; Glucose Urine UA Negative (Negative); Leukocyte Esterase Urine Large (3+) (Negative); Nitrite Urine Positive (Negative); PH 5.5 (5.0-9.0); UMIC TRIGGER UACC YES; Urine Blood Trace (Negative); Urine Ketones 15 mg/dL (Negative); Urine Protein Negative (Neg-Trace)
--- OUTSIDE RECORDS SUMMARY | 2022-10-15 14:58 | XMS_ITS | Continuity of Care Document ---
:1980 Author Organization [facility] Address [address] [place] [address]- Care Team Providers Name Role Phone Coleman MANSFIELD, Bill Primary Care Physician Encounter [facility] [place] Date(s): 07/03/21 - 08/02/21 [facility] [address] [place], [place] [address] Allergies, Adverse Reactions, Alerts Substance Reaction Severity Status lisinopril Cough Active sulfa drugs Active CeleXA Nausea Active Ultram Active Daypro Active Immunizations Given and Recorded Vaccine Date Status Refusal Reason Influenza Inactive (IM) (oldterm)1 04/05/15 Given Influenza Inactive (IM) (oldterm)2 05/10/14 Recorded tetanus/diphtheria/pertussis, acel(Tdap) 01/30/14 Given Pneumococcal Vaccine (oldterm) 07/21/05 Given influenza virus vaccine, inactivated3 07/21/05 Given 1Admin Note: [email or web address] Comment: [02/07/2015] [email or web address] Comment: Pt given VIS , 03/10/05 Lot # [id number] exp. 03/19/06 Medications albuterol CFC free 90 mcg/inh inhalation aerosol 2, puffs, Inhalation, 4 times a day, PRN, # 1 each, Refills 2, Tot. Refills 2, Maintenance, 03/21/1917:39:01 EDT, Route to Pharmacy Electronically, [id number], [id number] Start Date: 03/21/19 Status: Orderedamitriptyline 100 mg oral tablet See Instructions, TAKE 1 TABLET BY MOUTH EVERY DAY AT NIGHT, # 90 tablet, 7 Refills, 09/08/20 1:18:00 EST, [id number], 158, cm, 06/11/20 15:57:00 EDT, Height, 100.1, kg, 03/07/19 10:56:00 EDT, Dry Weight Start Date: 09/08/20 Status: OrderedbuPROPion 300 mg/24 hours (XL) oral tablet, extended release See Instructions, TAKE 1 TABLET BY MOUTH EVERY DAY IN THE MORNING, # 90 tablet, 7 Refills, 09/12/20 18:39:00 EST, [facility] #[id number], 158, cm, 06/11/20 15:57:00 EDT, Height, 100.1, kg, 03/07/19 10:56:00 EDT, Dry Weight Start Date: 09/12/20 Status: OrderedbusPIRone 10 mg oral tablet See Instructions, TAKE 1 TABLET BY MOUTH TWICE A DAY, # 60 each, Refills 0, Tot. Refills 0, 07/04/2114:18:00 EST, Instructions Replace Required Details, Route to Pharmacy Electronically, [email or web address][id number], 158, cm, 06/11/20 15:57:00 EDT, He... Start Date: 07/04/21 Status: OrderedCPAP Machine See Instructions, # 1 each, Maintenance, AutoCPAP 7 to 9 cm of H2O cm H2O, 06/25/16 13:04:35 EDT, Compound Start Date: 06/25/16 Status: Orderedfamotidine 20 mg oral tablet 20 mg, 1, tablet, By Mouth, 2 times a day, # 28 tablet, Refills 0, Tot. Refills 0, Maintenance, 02/14/20 15:43:00 EDT, Route to Pharmacy Electronically, [facility] #[id number], 158, cm, 09/02/19 11:30:00 EST, Height, 100.1, kg, 03/07/19 10:56:00 EDT, Dry... Start Date: 02/14/20 Stop Date: 02/28/20 Status: Orderedfluticasone 50 mcg/inh nasal spray See Instructions, USE 1 SPRAY IN EACH NOSTRIL TWICE DAILY FOR 10 DAYS, # 48 mL, 1 Refills, Maintenance, [id number], 90, USE 1 SPRAY IN EACH NOSTRIL TWICE DAILY FOR 10 DAYS, 158, cm, 09/02/19 11:30:00 EST, Height, 100.1, kg, 03/07/19 10:56:00 EDT,... Start Date: 05/18/20 Status: Orderedloratadine 10 mg oral tablet 10 mg, 1, tablet, By Mouth, Daily, # 10 tablet, Refills 0, Tot. Refills 0, Maintenance, 09/02/19 11:47:00 EST, Route to Pharmacy Electronically, [facility] #[id number], 158, cm, 09/02/19 11:30:00 EST, Height, 100.1, kg, 03/07/19 10:56:00 EDT, Dry Weight Start Date: 09/02/19 Stop Date: 09/12/19 Status: Orderedlosartan 25 mg oral tablet See Instructions, TAKE 2 TABLETS BY MOUTH DAILY,INSTR:NEEDS TO SCHEDULE FOLLOW UP APPT AND LABS, # 180 tablet, 0 Refills, Maintenance, [id number], 158, cm, 09/02/19 11:30:00 EST, Height, 100.1, kg, 03/07/19 10:56:00 EDT, Dry Weight Start Date: 06/05/20 Status: Orderedmeloxicam 15 mg oral tablet 1 tablet = 15 mg, By Mouth, Daily, # 7 tablet, 0 Refills, Maintenance, 12/26/19 8:36:00 EDT, Tablet,[facility] #[id number], 158, cm, 09/02/19 11:30:00 EST, Height, 100.1, kg, 03/07/19 10:56:00 EDT, Dry Weight Start Date: 12/26/19 Stop Date: 01/02/20 Status: Orderedmetoprolol 25 mg oral tablet 25 mg, 1, tablet, By Mouth, 2 times a day, Changing pharmacies from [facility], # 180 tablet, Refills 5, Tot. Refills 5, Maintenance, 09/02/19 11:54:00 EST, Route to Pharmacy Electronically, [facility]/pharmacy #[id number], 158, cm, 09/02/19 11:30... Start Date: 09/02/19 Status: Orderedomeprazole 20 mg oral enteric coated capsule 1 capsule = 20 mg, By Mouth, Daily, # 30 capsule, 11 Refills, Maintenance, 12/05/19 15:23:00 EDT, [facility]/pharmacy #[id number], 158, cm, 09/02/19 11:30:00 EST, Height, 100.1, kg, 03/07/19 10:56:00 EDT, Dry Weight Start Date: 12/05/19 Stop Date: 11/29/20 Status: OrderedraNITIdine 150 mg oral tablet 1 tablet = 150 mg, By Mouth, 2 times a day, # 120 tablet, 2 Refills, Maintenance, 11/10/19 8:41:00 EDT, Tablet, [facility]/pharmacy #[id number], 158, cm, 09/02/19 11:30:00 EST, Height, 100.1, kg, 03/07/19 10:56:00 EDT, Dry Weight Start Date: 11/10/19 Stop Date: 05/08/20 Status: OrderedTylenol Extra Strength 500 mg oral tablet 2 tablet = 1,000 mg, By Mouth, Every 6 hours, PRN as needed for pain, # 50 tablet, 1 Refills, Maintenance, 03/21/19 17:39:02 EDT Start Date: 03/21/19 Stop Date: 04/10/19 Status: OrderedvalACYclovir 500 mg oral tablet See Instructions, TAKE 1 TABLET BY MOUTH EVERY DAY, # 90 tablet, Refills 1, Acute, Instructions Replace Required Details, Route to Pharmacy Electronically, [id number], 158, cm, 09/02/19 11:30:00 EST, Height, 100.1, kg, 03/07/19 10:56:00 EDT, Dry... Start Date: 06/05/20 Status: Ordered Problem List Condition Effective Dates Status Health Status Informant Hypertension(Confirmed) Active IBS (irritable bowel Active syndrome)(Confirmed) Anxiety and depression(Confirmed) Active Morbid obesity(Confirmed) Active CYNDIE on CPAP(Confirmed) Active [facility]-Estephanie Active Jay.[phone]/[facility], Active Care Coordination(Confirmed) Social History Social History Type Response Smoking Status Never smoker entered on: 07/16/15 Sex Female
--- OUTSIDE RECORDS SUMMARY | 2022-10-15 14:58 | XMS_ITS | Continuity of Care Document ---
:1980 Author Organization [facility] Address [address] [place] [address]- Care Team Providers Name Role Phone Keysha MANSFIELD, Samia Longo Primary Care Physician [phone] [place] [facility] [place]12[place]19 [facility] [address] [place] [address]- [facility] Attending Physician: Henri Owens Admitting Physician: AdmHenri cortez Referring Physician: AdmtrHenri Allergies, Adverse Reactions, Alerts Substance Reaction Severity Status lisinopril Cough Active sulfa drugs Active Ultram Active Daypro Active CeleXA Nausea Active Immunizations Given and Recorded Vaccine Date Status Refusal Reason Influenza Inactive (IM) (oldterm)1 04/05/15 Given Influenza Inactive (IM) (oldterm)2 05/10/14 Recorded tetanus/diphtheria/pertussis, acel(Tdap) 01/30/14 Given Pneumococcal Vaccine (oldterm) 07/21/05 Given influenza virus vaccine, inactivated3 07/21/05 Given 1Admin Note: Manny Comment: [02/07/2015] [id number] Comment: Pt given VIS , 03/10/05 Lot # [id number] exp. 03/19/06 Medications albuterol CFC free 90 mcg/inh inhalation aerosol 2, puffs, Inhalation, 4 times a day, PRN, # 1 each, Refills 2, Tot. Refills 2, Maintenance, 03/21/1917:39:01 EDT, Route to Pharmacy Electronically, [id number], [id number] Start Date: 03/21/19 Status: OrderedAmbien 10 mg oral tablet 1 tablet = 10 mg, By Mouth, Daily at bedtime, PRN for sleep, 0 Refills, Maintenance, 08/27/16 10:39:25, Tablet Start Date: 08/27/16 Status: Orderedamitriptyline 100 mg oral tablet See Instructions, TAKE 1 TABLET BY MOUTH EVERY DAY AT NIGHT, # 30 tablet, 5 Refills, Maintenance, 04/21/19 15:22:26 EDT Start Date: 04/21/19 Status: OrderedbuPROPion 300 mg/24 hours (XL) oral tablet, extended release See Instructions, TAKE 1 TABLET BY MOUTH EVERY DAY IN THE MORNING, # 30 tablet, 4 Refills, Maintenance, 04/21/19 15:19:55 EDT Start Date: 04/21/19 Status: OrderedCPAP Machine See Instructions, # 1 each, Maintenance, AutoCPAP 7 to 9 cm of H2O cm H2O, 06/25/16 13:04:35 EDT, Compound Start Date: 06/25/16 Status: OrderedFlonase 50 mcg/inh nasal spray 1 sprays, Nares, Both, 2 times a day, # 9.9 mL, 2 Refills, Maintenance, 09/02/19 11:46:00 EST, [place], [facility]/pharmacy #[id number], 1 sprays Nares, Both 2 times a day,x10 days, 158, cm, 09/02/19 11:30:00 EST, Height, 100.1, kg, 03/07/19 10:56:00 EDT, Dry Weight Start Date: 09/02/19 Stop Date: 10/02/19 Status: Orderedloratadine 10 mg oral tablet 10 mg, 1, tablet, By Mouth, Daily, # 10 tablet, Refills 0, Tot. Refills 0, Maintenance, 09/02/19 11:47:00 EST, Route to Pharmacy Electronically, [facility]/pharmacy #[id number], 158, cm, 09/02/19 11:30:00 EST, Height, 100.1, kg, 03/07/19 10:56:00 EDT, Dry Weight Start Date: 09/02/19 Stop Date: 09/12/19 Status: Orderedlosartan 50 mg oral tablet 50 mg, 1, tablet, By Mouth, Daily, needs to schedule fu appt and labs, # 30 tablet, Refills 5, Tot. Refills 5, Maintenance, 09/02/19 11:53:00 EST, Route to Pharmacy Electronically, [facility]/pharmacy #[id number], Please ask pt to schedule followup appt. thank you... Start Date: 09/02/19 Status: Orderedmetoprolol 25 mg oral tablet 25 mg, 1, tablet, By Mouth, 2 times a day, Changing pharmacies from [facility] on [facility], # 180 tablet, Refills 5, Tot. Refills 5, Maintenance, 09/02/19 11:54:00 EST, Route to Pharmacy Electronically, [facility]/pharmacy #[id number], 158, cm, 09/02/19 11:30... Start Date: 09/02/19 Status: Orderedomeprazole 20 mg oral enteric coated capsule 1 capsule = 20 mg, By Mouth, Daily, # 30 capsule, 11 Refills, Maintenance, 05/02/19 23:13:55 EDT Start Date: 05/02/19 Stop Date: 04/26/20 Status: OrderedraNITIdine 150 mg oral tablet 1 tablet = 150 mg, By Mouth, 2 times a day, # 60 tablet, 2 Refills, Maintenance, 03/21/19 17:38:53 EDT, Tablet Start Date: 03/21/19 Stop Date: 06/19/19 Status: OrderedTylenol Extra Strength 500 mg oral tablet 2 tablet = 1,000 mg, By Mouth, Every 6 hours, PRN as needed for pain, # 50 tablet, 1 Refills, Maintenance, 03/21/19 17:39:02 EDT Start Date: 03/21/19 Stop Date: 04/10/19 Status: OrderedvalACYclovir 500 mg oral tablet 500 mg, 1, tablet, By Mouth, Daily, # 90 tablet, Refills 1, Tot. Refills 1, Maintenance, 03/21/19 17:39:02 EDT, Route to Pharmacy Electronically, [id number], [facility]/pharmacy #[id number] Start Date: 03/21/19 Status: Ordered Problem List Condition Effective Dates Status Health Status Informant Hypertension(Confirmed) Active IBS (irritable bowel Active syndrome)(Confirmed) Anxiety and depression(Confirmed) Active Morbid obesity(Confirmed) Active CYNDIE on CPAP(Confirmed) Active BHN/ONECARE/CC-Estephanie Active Jay.[id number]/Health [facility], Active Care Coordination(Confirmed) Social History Social History Type Response Smoking Status Never smoker entered on: 07/16/15 Sex Female
--- OUTSIDE RECORDS SUMMARY | 2022-10-15 14:58 | XMS_ITS | Continuity of Care Document ---
:1980 Author Organization [facility] Address [address] [place] [address]- Care Team Providers Name Role Phone Keysha MANSFIELD, Samia Longo Primary Care Physician [place] [facility] [place] 09[place]05/19 [facility] [address] [address]- [facility] Attending Physician: Henri Owens Admitting Physician: AdmtrHenri Referring Physician: Admtr, Ar8 Allergies, Adverse Reactions, Alerts Substance Reaction Severity Status lisinopril Cough Active sulfa drugs Active Ultram Active Daypro Active CeleXA Nausea Active Immunizations Given and Recorded Vaccine Date Status Refusal Reason Influenza Inactive (IM) (oldterm)1 04/05/15 Given Influenza Inactive (IM) (oldterm)2 05/10/14 Recorded tetanus/diphtheria/pertussis, acel(Tdap) 01/30/14 Given Pneumococcal Vaccine (oldterm) 07/21/05 Given influenza virus vaccine, inactivated3 07/21/05 Given 1Admin Note: Manny Comment: [02/07/2015] [email or web address] Comment: Pt given VIS , 03/10/05 Lot # [id number] exp. 03/19/06 Medications albuterol CFC free 90 mcg/inh inhalation aerosol 2, puffs, Inhalation, 4 times a day, PRN, # 1 each, Refills 2, Tot. Refills 2, Maintenance, 03/21/1917:39:01 EDT, Route to Pharmacy Electronically, [id number], [id number] Start Date: 03/21/19 Status: OrderedAmbien [...] mL, 2 Refills, Maintenance, 09/02/19 11:46:00 EST, [place], [facility]/pharmacy #[id number], 1 sprays Nares, Both 2 times a day,x10 days, 158, cm, 09/02/19 11:30:00 EST, Height, 100.1, kg, 03/07/19 10:56:00 EDT, Dry Weight Start Date: 09/02/19 Stop Date: 10/02/19 Status: Orderedloratadine 10 mg oral tablet 10 mg, 1, tablet, By Mouth, Daily, # 10 tablet, Refills 0, Tot. Refills 0, Maintenance, 09/02/19 11:47:00 EST, Route to Pharmacy Electronically, [facility]/pharmacy #[id number], 158, cm, 09/02/19 11:30:00 EST, Height, 100.1, kg, 03/07/19 10:56:00 EDT, Dry Weight Start Date: 09/02/19 Stop Date: 09/12/19 Status: Orderedlosartan 50 mg oral tablet 50 mg, 1, tablet, By Mouth, Daily, needs to schedule fu appt and labs, # 30 tablet, Refills 5, Tot. Refills 5, Maintenance, 09/02/19 11:53:00 EST, [id number], Please ask pt to schedule followup appt. thank you... Start Date: 09/02/19 Status: Orderedmetoprolol 25 mg oral tablet 25 mg, 1, tablet, By Mouth, 2 times a day, Changing pharmacies from [facility] on [facility], # 180 tablet, Refills 5, Tot. Refills 5, Maintenance, 09/02/19 11:54:00 EST, Route to Pharmacy Electronically, [facility]/pharmacy #[id number], 158, cm, 09/02/19 11:30... Start Date: 09/02/19 [...] 03/21/19 17:39:02 EDT, Route to Pharmacy Electronically, [id number], [facility]/pharmacy #[id number] Start Date: 03/21/19 Status: Ordered Problem List Condition Effective Dates Status Health Status Informant Hypertension(Confirmed) Active IBS (irritable bowel Active syndrome)(Confirmed) Anxiety and depression(Confirmed) Active Morbid obesity(Confirmed) Active CYNDIE on CPAP(Confirmed) Active BHN/ONECARE/Raf Active Jay.[id number]/Health Al[facility], Active Care Coordination(Confirmed) Social History Social History Type Response Smoking Status Never smoker entered on: 07/16/15 Sex Female
--- OUTSIDE RECORDS SUMMARY | 2022-10-15 14:58 | XMS_ITS | Continuity of Care Document ---
:1980 Author Organization [facility] Address [address] [place] [address]- Care Team Providers Name Role Phone Keysha MANSFIELD, Samia Longo Primary Care Physician Encounter [facility] [place] Date(s): 12/22/19 - 01/21/20 [facility] [address] [address]- [facility] Attending Physician: AdmHenri cortez Admitting Physician: AdmtrHenri Referring Physician: Admtr, Ar8 [...] 07/21/05 Given 1Admin Note: Manny Comment: [02/07/2015] [id number] Comment: Pt given VIS , 03/10/05 Lot # [id number] exp. 03/19/06 Medications albuterol CFC free 90 mcg/inh inhalation aerosol 2, puffs, Inhalation, 4 times a day, PRN, # 1 each, Refills 2, Tot. Refills 2, Maintenance, 03/21/1917:39:01 EDT, Route to Pharmacy Electronically, [id number], [id number] Start Date: 7/29/19 Status: OrderedAmbien 10 mg oral tablet 1 tablet = 10 mg, By Mouth, Daily at bedtime, PRN for sleep, 0 Refills, Maintenance, 08/27/16 10:39:25, Tablet Start Date: 08/27/16 Status: Orderedamitriptyline 100 mg oral tablet See Instructions, TAKE 1 TABLET BY MOUTH EVERY DAY AT NIGHT, # 30 tablet, 5 Refills, Maintenance, 12/05/19 14:50:00 EDT, [facility]/pharmacy #[id number], 158, cm, 09/02/19 11:30:00 EST, Height, 100.1, kg, 03/07/19 10:56:00 EDT, Dry Weight Start Date: 12/05/19 Status: OrderedbuPROPion 300 mg/24 hours (XL) oral tablet, extended release See Instructions, TAKE 1 TABLET BY MOUTH EVERY DAY IN THE MORNING, # 30 tablet, 4 Refills, Maintenance, 01/05/20 15:17:00 EDT, [facility]/pharmacy #[id number], 158, cm, 09/02/19 11:30:00 EST, Height, 100.1, kg, 03/07/19 10:56:00 EDT, Dry Weight Start Date: 01/05/20 Status: OrderedCPAP Machine See Instructions, # 1 each, Maintenance, AutoCPAP 7 to 9 cm of H2O cm H2O, 06/25/16 13:04:35 EDT, Compound Start Date: 06/25/16 Status: OrderedFlonase 50 mcg/inh nasal spray 1 sprays, Nares, Both, 2 times a day, # 9.9 mL, 5 Refills, Maintenance, 11/22/19 16:40:00 EDT, [place], [facility]/pharmacy #[id number], 1 sprays Nares, Both 2 times a day,x10 days, 158, cm, 09/02/19 11:30:00 EST, Height, 100.1, kg, 03/07/19 10:56:00 EDT, Dry Weight Start Date: 11/22/19 Stop Date: 01/21/20 Status: Orderedloratadine 10 mg oral tablet 10 mg, 1, tablet, By Mouth, Daily, # 10 tablet, Refills 0, Tot. Refills 0, Maintenance, 09/02/19 11:47:00 EST, Route to Pharmacy Electronically, [facility]/pharmacy #[id number], 158, cm, 09/02/19 11:30:00 EST, Height, 100.1, kg, 03/07/19 10:56:00 EDT, Dry Weight Start Date: 09/02/19 Stop Date: 09/12/19 Status: Orderedlosartan 50 mg oral tablet 50 mg, 1, tablet, By Mouth, Daily, needs to schedule fu appt and labs, # 30 tablet, Refills 5, Tot. Refills 5, Maintenance, 09/02/19 11:53:00 EST, Route to Pharmacy Electronically, [facility]/pharmacy #[id number], Please ask pt to schedule followup appt. thank you... Start Date: 09/02/19 Status: Orderedmeloxicam 15 mg oral tablet 1 tablet = 15 mg, By Mouth, Daily, # 7 tablet, 0 Refills, Maintenance, 12/26/19 8:36:00 EDT, Tablet,[id number], 158, cm, 09/02/19 11:30:00 EST, Height, 100.1, kg, 03/07/19 10:56:00 EDT, Dry Weight Start Date: 12/26/19 Stop Date: 01/02/20 Status: Orderedmetoprolol 25 mg oral tablet 25 mg, 1, tablet, By Mouth, 2 times a day, Changing pharmacies from [facility] on [facility], # 180 tablet, Refills 5, Tot. Refills 5, Maintenance, 09/02/19 11:54:00 EST, Route to Pharmacy Electronically, [facility]/pharmacy #[id number], 158, cm, 09/02/19 11:30... Start Date: 09/02/19 Status: Orderedomeprazole 20 mg oral enteric coated capsule 1 capsule = 20 mg, By Mouth, Daily, # 30 capsule, 11 Refills, Maintenance, 12/05/19 15:23:00 EDT, [facility]/pharmacy #[id number], 158, cm, 09/02/19 11:30:00 EST, Height, 100.1, kg, 03/07/19 10:56:00 EDT, Dry Weight Start Date: 12/05/19 Stop Date: 11/29/20 Status: OrderedraNITIdine 150 mg oral tablet 1 tablet = 150 mg, By Mouth, 2 times a day, # 120 tablet, 2 Refills, Maintenance, 11/10/19 8:41:00 EDT, Tablet, [facility]/pharmacy #[id number], 158, cm, 09/02/19 11:30:00 [...] mg, 1, tablet, By Mouth, Daily, # 30 tablet, Refills 1, Tot. Refills 1, Maintenance, 12/05/19 15:19:00 EDT, Route to Pharmacy Electronically, [facility]/pharmacy #[id number], 158, cm, 09/02/19 11:30:00 EST, Height, 100.1, kg, 03/07/19 10:56:00 EDT, Dry Weight Start Date: 12/05/19 Stop Date: 02/03/20 Status: OrderedvalACYclovir 500 mg oral tablet 500 mg, 1, tablet, By Mouth, Daily, # 90 tablet, Refills 1, Tot. Refills 1, Maintenance, 12/05/19 15:21:00 EDT, Route to Pharmacy Electronically, [facility]/pharmacy #[id number], 158, cm, 09/02/19 11:30:00 EST, Height, 100.1, kg, 03/07/19 10:56:00 EDT, Dry Weight Start Date: 12/05/19 Status: Ordered Problem List Condition Effective Dates Status Health Status Informant Hypertension(Confirmed) Active IBS (irritable bowel Active syndrome)(Confirmed) Anxiety and depression(Confirmed) Active Morbid obesity(Confirmed) Active CYNDIE on CPAP(Confirmed) Active *BHN/ONECARE/CC-Sergei Active Mac.[id number]/[facility], Active Care Coordination(Confirmed) Social History Social History Type Response Smoking Status Never smoker entered on: 07/16/15 Sex Female
--- OUTSIDE RECORDS SUMMARY | 2022-10-15 14:58 | XMS_ITS | Continuity of Care Document ---
:1980 Author Organization [facility] Address [address] [place] [address]- Care Team Providers Name Role Phone Coleman MANSFIELD, Bill Nolasco Primary Care Physician [place] [facility] [place] [facility] [address] [place], [place] [address] Attending Physician: Amol Hu MD Admitting Physician: Amol Hu MD Allergies, Adverse Reactions, Alerts Substance Reaction Severity Status lisinopril Cough Active sulfa drugs Active Ultram Active Daypro Active CeleXA Nausea Active Immunizations Given and Recorded Vaccine Date Status Refusal Reason Influenza Inactive (IM) (oldterm)1 04/05/15 Given Influenza Inactive (IM) (oldterm)2 05/10/14 Recorded tetanus/diphtheria/pertussis, acel(Tdap) 01/30/14 Given Pneumococcal Vaccine (oldterm) 07/21/05 Given influenza virus vaccine, inactivated3 07/21/05 Given 1Admin Note: Manny Comment: [02/07/2015] [id number] Comment: Pt given VIS , 03/10/05 Lot # [id number] exp. 03/19/06 Medications albuterol CFC free 90 mcg/inh inhalation aerosol 2, puffs, Inhalation, 4 times a day, PRN, # 1 each, Refills 2, Tot. Refills 2, Maintenance, 03/21/1917:39:01 EDT, Route to Pharmacy Electronically, [id number], [id number] Start Date: 03/21/19 Status: Orderedamitriptyline 100 mg oral tablet See Instructions, TAKE 1 TABLET BY MOUTH EVERY DAY AT NIGHT NO FURTHER REFILLS WITHOUT APPT, # 14 tablet, 7 Refills, 09/17/22 14:11:00 EST, [facility]/pharmacy #[id number] Start Date: 09/17/22 Status: OrderedbuPROPion 300 mg/24 hours (XL) oral tablet, extended release See Instructions, TAKE 1 TABLET BY MOUTH EVERY DAY IN THE MORNING, # 90 tablet, 7 Refills, 09/12/20 18:39:00 EST, [facility]/pharmacy #[id number], 158, cm, 06/11/20 15:57:00 EDT, Height, 100.1, kg, 03/07/19 10:56:00 EDT, Dry Weight Start Date: 09/12/20 Status: OrderedbusPIRone 10 mg oral tablet See Instructions, TAKE 1 TABLET BY MOUTH TWICE A DAY, # 60 each, Refills 0, Tot. Refills 0, 07/04/2114:18:00 EST, Instructions Replace Required Details, Route to Pharmacy Electronically, [facility] #[id number], 158, cm, 06/11/20 15:57:00 EDT, He... Start [...] 02/14/20 15:43:00 EDT, Route to Pharmacy Electronically, [facility]/pharmacy #[id number], 158, cm, 09/02/19 11:30:00 EST, Height, 100.1, kg, 03/07/19 10:56:00 EDT, Dry... Start Date: 02/14/20 Stop Date: 02/28/20 Status: Orderedfluticasone 50 mcg/inh nasal spray See Instructions, USE 1 SPRAY IN EACH NOSTRIL TWICE DAILY FOR 10 DAYS, # 48 mL, 1 Refills, Maintenance, [id number], 90, USE 1 SPRAY IN EACH NOSTRIL TWICE DAILY FOR 10 DAYS, 158, cm, 09/02/19 11:30:00 EST, Height, 100.1, kg, 03/07/19 10:56:00 EDT,... Start Date: 05/18/20 Status: Orderedloratadine 10 mg oral tablet 10 mg, 1, tablet, By Mouth, Daily, # 10 tablet, Refills 0, Tot. Refills 0, Maintenance, 09/02/19 11:47:00 EST, Route to Pharmacy Electronically, [facility]/pharmacy #[id number], 158, cm, 09/02/19 11:30:00 EST, Height, 100.1, kg, 03/07/19 10:56:00 EDT, Dry Weight Start Date: 09/02/19 Stop Date: 09/12/19 Status: Orderedlosartan 25 mg oral tablet See Instructions, TAKE 2 TABLETS BY MOUTH DAILY,NO FURTHER REFILLS WITHOUT MD APPT, # 28 tablet, 0 Refills, 09/17/22 14:10:00 EST, [facility]/pharmacy #[id number] Start Date: 09/17/22 Status: Orderedmeloxicam 15 mg oral tablet 1 tablet = 15 mg, By Mouth, Daily, # 7 tablet, 0 Refills, Maintenance, 12/26/19 8:36:00 EDT, Tablet,[facility]/pharmacy #[id number], 158, cm, 09/02/19 11:30:00 EST, Height, 100.1, kg, 03/07/19 10:56:00 EDT, Dry Weight Start Date: 12/26/19 Stop Date: 01/02/20 Status: Orderedmetoprolol 25 mg oral tablet 25 mg, 1, tablet, By Mouth, 2 times a day, # 60 tablet, Refills 0, Tot. Refills 0, Maintenance, 05/26/22 7:11:00 EDT, Print Requisition, Partial fill upon patient request if the prescription is for a schedule II opioid drug. Start Date: 05/26/22 Stop Date: 06/25/22 Status: Orderedmetoprolol 25 mg oral tablet 25 mg, 1, tablet, By Mouth, 2 times a day, Changing pharmacies from [facility] on [facility], # 180 tablet, Refills 5, Tot. Refills 5, Maintenance, 09/02/19 11:54:00 EST, Route to Pharmacy Electronically, [facility]/pharmacy #[id number], 158, cm, 09/02/19 11:30... Start Date: 09/02/19 Status: Orderedomeprazole 20 mg oral enteric coated capsule 1 capsule = 20 mg, By Mouth, Daily, # 30 capsule, 11 Refills, Maintenance, 12/05/19 15:23:00 EDT, [facility]/pharmacy #[id number], 158, cm, 09/02/19 11:30:00 EST, Height, 100.1, kg, 03/07/19 10:56:00 EDT, Dry Weight Start Date: 12/05/19 Stop Date: 11/29/20 Status: OrderedraNITIdine 150 mg oral tablet 1 tablet = 150 mg, By Mouth, 2 times a day, # 120 tablet, 2 Refills, Maintenance, 11/10/19 8:41:00 EDT, Tablet, [facility]/pharmacy #[id number], 158, cm, 09/02/19 11:30:00 EST, Height, [...] Replace Required Details, Route to Pharmacy Electronically, [id number], 158, cm, 09/02/19 11:30:00 EST, Height, 100.1, kg, 03/07/19 10:56:00 EDT, Dry... Start Date: 06/05/20 Status: Ordered Problem List Condition Confirmation Course Effective Dates Status Health Stat us Informant Hypertension Confirmed Active IBS (irritable Confirmed Active bowel syndrome) Anxiety and Confirmed Active depression Morbid obesity Confirmed Active CYNDIE on CPAP Confirmed Active BHN/ONECARE/CC-Lesl Confirmed Active ie Jay.413.38 6-2465/Health [facility], Active Care Coordination Social History Social History Type Response Smoking Status Never smoker entered on: 07/16/15 Sex Female Patient Care team information Care Team PersonnelName: Coleman MANSFIELD, Bill Nolasco Position: S Resident Member Role: PCP Address: Address: [address] [facility] [place] [address]- Care Team Related PersonsName: BALJINDER PEÑA Address: home [address] [place] [address] Name: ROSANA LAL Address: home [address] [place] [address]
--- OUTSIDE RECORDS SUMMARY | 2022-10-15 14:58 | XMS_ITS | Continuity of Care Document ---
:1980 Author Organization [facility] (Formerly [facility])[3] Adult Medicine Address [address] [place] [address]- Care Team Providers Name Role Phone Keysha MANSFIELD, Samia Longo Primary Care Physician [phone] Encounter [facility] R [id number] Date(s): 12/26/19 - 01/02/20 [facility] (Former[facility]3] Adult Medicine [address] [place] [address]- [facility] Attending Physician: Humera MANSFIELD, Santosh Christian Admitting Physician: Fritz MANSFIELD, Amol Longo Allergies, Adverse Reactions, Alerts Substance Reaction Severity Status lisinopril Cough Active sulfa drugs Active Ultram Active Daypro Active CeleXA Nausea Active Immunizations Given and Recorded Vaccine Date Status Refusal Reason Influenza Inactive (IM) (oldterm)1 04/05/15 Given Influenza Inactive (IM) (oldterm)2 05/10/14 Recorded tetanus/diphtheria/pertussis, acel(Tdap) 01/30/14 Given Pneumococcal Vaccine (oldterm) 07/21/05 Given influenza virus vaccine, inactivated3 07/21/05 Given 1Admin Note: Manny Comment: [02/07/2015] [id number] Comment: Pt given VIS , 03/10/05 Lot # [id number] exp. 03/19/06 Medications albuterol CFC free 90 mcg/inh inhalation aerosol 2, puffs, Inhalation, 4 times a day, PRN, # 1 each, Refills 2, Tot. Refills 2, Maintenance, 03/21/1917:39:01 EDT, Route to Pharmacy Electronically, [id number], [id number] Start Date: 03/21/19 Status: OrderedAmbien 10 mg oral tablet 1 tablet = 10 mg, By Mouth, Daily at bedtime, PRN for sleep, 0 Refills, Maintenance, 08/27/16 10:39:25, Tablet Start Date: 08/27/16 Status: Orderedamitriptyline 100 mg oral tablet See Instructions, TAKE 1 TABLET BY MOUTH EVERY DAY AT NIGHT, # 30 tablet, 5 Refills, Maintenance, 12/05/19 14:50:00 EDT, [facility]/pharmacy #[id number], 158, cm, 09/02/19 11:30:00 EST, Height, 100.1, kg, 03/07/19 10:56:00 EDT, Dry Weight Start Date: 12/05/19 Status: OrderedbuPROPion 300 mg/24 hours (XL) oral tablet, extended release See Instructions, TAKE 1 TABLET BY MOUTH EVERY DAY IN THE MORNING, # 30 tablet, 4 Refills, Maintenance, 10/03/19 14:58:00 EST, [id number], 158, cm, 09/02/19 11:30:00 EST, Height, 100.1, kg, 03/07/19 10:56:00 EDT, Dry Weight Start Date: 10/03/19 Status: OrderedCPAP Machine See Instructions, # 1 each, Maintenance, AutoCPAP 7 to 9 cm of H2O cm H2O, 06/25/16 13:04:35 EDT, Compound Start Date: 06/25/16 Status: OrderedFlonase 50 mcg/inh nasal spray 1 sprays, Nares, Both, 2 times a day, # 9.9 mL, 5 Refills, Maintenance, 11/22/19 16:40:00 EDT, [place], [facility]/pharmacy #[id number], 1 sprays Nares, Both 2 times a day,x10 days, 158, cm, 09/02/19 11:30:00 EST, Height, 100.1, kg, 03/07/19 10:56:00 EDT, Dry Weight Start Date: 11/22/19 Stop Date: 01/21/20 Status: Orderedloratadine 10 mg oral tablet 10 mg, 1, tablet, By Mouth, Daily, # 10 tablet, Refills 0, Tot. Refills 0, Maintenance, 09/02/19 11:47:00 EST, Route to Pharmacy Electronically, [facility]/pharmacy #[id number], 158, cm, 09/02/19 11:30:00 EST, Height, 100.1, kg, 03/07/19 10:56:00 EDT, Dry Weight Start Date: 09/02/19 Stop Date: 09/12/19 Status: Orderedlosartan 50 mg oral tablet 50 mg, 1, tablet, By Mouth, Daily, needs to schedule fu appt and labs, # 30 tablet, Refills 5, Tot. Refills 5, Maintenance, 09/02/19 11:53:00 EST, Route to Pharmacy Electronically, [facility]/pharmacy #[id number], Please ask pt to schedule followup appt. thank you... Start Date: 09/02/19 Status: Orderedmeloxicam 15 mg oral tablet 1 tablet = 15 mg, By Mouth, Daily, # 7 tablet, 0 Refills, Maintenance, 12/26/19 8:36:00 EDT, Tablet,[facility]/pharmacy #[id number], 158, cm, 09/02/19 11:30:00 EST, Height, 100.1, kg, 03/07/19 10:56:00 EDT, Dry Weight Start Date: 12/26/19 Stop Date: 01/02/20 Status: Orderedmetoprolol 25 mg oral tablet 25 mg, 1, tablet, By Mouth, 2 times a day, Changing pharmacies from [facility], # 180 tablet, Refills 5, Tot. Refills 5, Maintenance, 09/02/19 11:54:00 EST, Route to Pharmacy Electronically, [facility]/pharmacy #[id number], 158, cm, 09/02/19 11:30... Start Date: 09/02/19 Status: Orderedomeprazole 20 mg oral enteric coated capsule 1 capsule = 20 mg, By Mouth, Daily, # 30 capsule, 11 Refills, Maintenance, 12/05/19 15:23:00 EDT, [facility]/pharmacy #[id number], 158, cm, 09/02/19 11:30:00 EST, Height, 100.1, kg, 03/07/19 10:56:00 EDT, Dry Weight Start Date: 12/05/19 Stop Date: 11/29/20 Status: OrderedraNITIdine 150 mg oral tablet 1 tablet = 150 mg, By Mouth, 2 times a day, # 120 tablet, 2 Refills, Maintenance, 11/10/19 8:41:00 EDT, Tablet, [facility]/pharmacy #[id number], 158, cm, 09/02/19 11:30:00 EST, Height, [...] 12/05/19 15:19:00 EDT, Route to Pharmacy Electronically, [facility]/pharmacy #[id number], 158, cm, 09/02/19 11:30:00 EST, Height, 100.1, kg, 03/07/19 10:56:00 EDT, Dry Weight Start Date: 12/05/19 Stop Date: 02/03/20 Status: OrderedvalACYclovir 500 mg oral tablet 500 mg, 1, tablet, By Mouth, Daily, # 90 tablet, Refills 1, Tot. Refills 1, Maintenance, 12/05/19 15:21:00 EDT, Route to Pharmacy Electronically, [facility]/pharmacy #[id number], 158, cm, 09/02/19 11:30:00 EST, Height, 100.1, kg, 03/07/19 10:56:00 EDT, Dry Weight Start Date: 12/05/19 Status: Ordered Problem List Condition Effective Dates Status Health Status Informant Hypertension(Confirmed) Active IBS (irritable bowel Active syndrome)(Confirmed) Anxiety and depression(Confirmed) Active Morbid obesity(Confirmed) Active CYNDIE on CPAP(Confirmed) Active *BHN/[facility]ECARE/CC-Sergei Active Mac.[phone]/Health [facility], Active Care Coordination(Confirmed) Social History Social History Type Response Smoking Status Never smoker entered on: 07/16/15 Sex Female
--- OUTSIDE RECORDS SUMMARY | 2022-10-15 14:58 | XMS_ITS | Continuity of Care Document ---
:1980 Author Organization [facility] Adult Medicine Address [address] [place] [address]- Care Team Providers Name Role Phone Keysha MANSFIELD, Samia Longo Primary Care Physician [place] [facility] [place](s): 09/17/20 - 10/17/20 [facility] Adult [facility] [address] [place], [place] [address] Attending Physician: Henri Owens Admitting Physician: AdmHenri [...] 07/21/05 Given 1Admin Note: Manny Comment: [02/07/2015] [id number] Comment: Pt given VIS , 03/10/05 Lot # [id number] exp. 03/19/06 Medications albuterol CFC free 90 mcg/inh inhalation aerosol 2, puffs, Inhalation, 4 times a day, PRN, # 1 each, Refills 2, Tot. Refills 2, Maintenance, 03/21/1917:39:01 EDT, Route to Pharmacy Electronically, [id number], [id number] Start Date: 03/21/19 Status: OrderedAmbien 10 mg oral tablet 1 tablet = 10 mg, By Mouth, Daily at bedtime, PRN as needed for insomnia, for 30 days, # 30 tablet, 7 Refills, Acute 03/30/21 15:33:00 EDT, 08/02/20 15:33:00 EST, Tablet, [facility]/pharmacy #[id number], Partial fill upon patient request if the prescription is for... Start Date: 08/02/20 Stop Date: 03/30/21 Status: Orderedamitriptyline 100 mg oral tablet See Instructions, TAKE 1 TABLET BY MOUTH EVERY DAY AT NIGHT, # 90 tablet, 7 Refills, 09/08/20 1:18:00 EST, [facility]/pharmacy #[id number], 158, cm, 06/11/20 15:57:00 EDT, Height, 100.1, kg, 03/07/19 10:56:00 EDT, Dry Weight Start Date: 09/08/20 Status: OrderedbuPROPion 300 mg/24 hours (XL) oral tablet, extended release See Instructions, TAKE 1 TABLET BY MOUTH EVERY DAY IN THE MORNING, # 90 tablet, 7 Refills, 09/12/20 18:39:00 EST, [facility]/pharmacy #[id number], 158, cm, 06/11/20 15:57:00 EDT, Height, 100.1, kg, 03/07/19 10:56:00 EDT, Dry Weight Start Date: 09/12/20 Status: OrderedbusPIRone 10 mg oral tablet See Instructions, TAKE 1 TABLET BY MOUTH TWICE A DAY, # 180 tablet, Refills 8, Tot. Refills 8, 07/03/20 7:23:00 EST, Instructions Replace Required Details, Route to Pharmacy Electronically, [facility]/pharmacy #[id number], 158, cm, 06/11/20 15:57:00 EDT, Height, 1... Start Date: 07/03/20 Status: OrderedCPAP Machine See Instructions, # 1 each, Maintenance, AutoCPAP 7 to 9 cm of H2O cm H2O, 06/25/16 13:04:35 EDT, Compound Start Date: 06/25/16 Status: Orderedfamotidine 20 mg oral tablet 20 mg, 1, tablet, By Mouth, 2 times a day, # 28 tablet, Refills 0, Tot. Refills 0, Maintenance, 02/14/20 15:43:00 EDT, Route to Pharmacy Electronically, [facility]/pharmacy #[id number], 158, cm, 09/02/19 11:30:00 EST, Height, 100.1, kg, 03/07/19 10:56:00 EDT, Dry... Start Date: 02/14/20 Stop Date: 02/28/20 Status: Orderedfluticasone 50 mcg/inh nasal spray See Instructions, USE 1 SPRAY IN EACH NOSTRIL TWICE DAILY FOR 10 DAYS, # 48 mL, 1 Refills, Maintenance, [facility] STORE [id number], 90, USE 1 SPRAY IN EACH NOSTRIL TWICE DAILY FOR 10 DAYS, 158, cm, 09/02/19 11:30:00 EST, Height, 100.1, kg, 03/07/19 10:56:00 EDT,... Start Date: 05/18/20 Status: Orderedloratadine 10 mg oral tablet 10 mg, 1, tablet, By Mouth, Daily, # 10 tablet, Refills 0, Tot. Refills 0, Maintenance, 09/02/19 11:47:00 EST, Route to Pharmacy Electronically, [facility]/pharmacy #[id number], 158, cm, 09/02/19 11:30:00 EST, Height, 100.1, kg, 03/07/19 10:56:00 EDT, Dry Weight Start Date: 09/02/19 Stop Date: 09/12/19 Status: Orderedlosartan 25 mg oral tablet See Instructions, TAKE 2 TABLETS BY MOUTH DAILY,INSTR:NEEDS TO SCHEDULE FOLLOW UP APPT AND LABS, # 180 tablet, 0 Refills, Maintenance, [id number], 158, cm, 09/02/19 11:30:00 EST, Height, 100.1, kg, 03/07/19 10:56:00 EDT, Dry Weight Start Date: 06/05/20 Status: Orderedmeloxicam 15 mg oral tablet 1 tablet = 15 mg, By Mouth, Daily, # 7 tablet, 0 Refills, Maintenance, 12/26/19 8:36:00 EDT, Tablet,[facility]/pharmacy #[id number], 158, cm, 09/02/19 11:30:00 EST, Height, 100.1, kg, 03/07/19 10:56:00 EDT, Dry Weight Start Date: 12/26/19 Stop Date: 01/02/20 Status: Orderedmetoprolol 25 mg oral tablet 25 mg, 1, tablet, By Mouth, 2 times a day, Changing pharmacies from [facility], # 180 tablet, Refills 5, Tot. Refills 5, Maintenance, 09/02/19 11:54:00 EST, Route to Pharmacy Electronically, [facility]/pharmacy #[id number], 158, cm, 09/02/19 11:30... Start Date: 09/02/19 Status: Orderedomeprazole 20 mg oral enteric coated capsule 1 capsule = 20 mg, By Mouth, Daily, # 30 capsule, 11 Refills, Maintenance, 12/05/19 15:23:00 EDT, [facility]/pharmacy #[id number], 158, cm, 09/02/19 11:30:00 EST, Height, 100.1, kg, 03/07/19 10:56:00 EDT, Dry Weight Start Date: 12/05/19 Stop Date: 11/29/20 Status: OrderedraNITIdine 150 mg oral tablet 1 tablet = 150 mg, By Mouth, 2 times a day, # 120 tablet, 2 Refills, Maintenance, 11/10/19 8:41:00 EDT, [id number], cm, 09/02/19 11:30:00 EST, Height, [...] Replace Required Details, Route to Pharmacy Electronically, [facility] [id number], 158, cm, 09/02/19 11:30:00 EST, Height, 100.1, kg, 03/07/19 10:56:00 EDT, Dry... Start Date: 06/05/20 Status: Ordered Problem List Condition Effective Dates Status Health Status Informant Hypertension(Confirmed) Active IBS (irritable bowel Active syndrome)(Confirmed) Anxiety and depression(Confirmed) Active Morbid obesity(Confirmed) Active CYNDIE on CPAP(Confirmed) Active [facility]/Raf Thompson.[phone]/Health [facility], Active Care Coordination(Confirmed) Social History Social History Type Response Smoking Status Never smoker entered on: 07/16/15 Sex Female
--- OUTSIDE RECORDS SUMMARY | 2022-10-15 14:58 | XMS_ITS | Continuity of Care Document ---
:1980 Author Organization [facility] Address [address] [place] [address]- Care Team Providers Name Role Phone Keysha MANSFIELD, Samia Longo Primary Care Physician En[place] [facility] Date(s): 04/12/19 - 08/10/19 [facility] [address] [address]- [facility] Attending Physician: Vinita Jhonson MD Admitting Physician: Vinita Johnson MD Allergies, Adverse Reactions, Alerts Substance Reaction Severity Status lisinopril Cough Active sulfa drugs Active Ultram Active Daypro Active CeleXA Nausea Active Immunizations Given and Recorded Vaccine Date Status Refusal Reason Influenza Inactive (IM) (oldterm)1 04/05/15 Given Influenza Inactive (IM) (oldterm)2 05/10/14 Recorded tetanus/diphtheria/pertussis, acel(Tdap) 01/30/14 Given Pneumococcal Vaccine (oldterm) 07/21/05 Given influenza virus vaccine, inactivated3 07/21/05 Given 1Admin Note: Manny Comment: [02/07/2015] [id number] Comment: Pt given VIS , 03/10/05 Lot # [id number] exp. 03/19/06 Medications albuterol CFC free 90 mcg/inh inhalation aerosol 2, puffs, Inhalation, 4 times a day, PRN, # 1 each, Refills 2, Tot. Refills 2, Maintenance, 03/21/1917:39:01 EDT, Route to Pharmacy Electronically, [id number], [id number] Start Date: 03/21/19 Status: OrderedAmbien [...] 13:04:35 EDT, Compound Start Date: 06/25/16 Status: Orderedloratadine 10 mg oral tablet 10 mg, 1, tablet, By Mouth, Daily, as needed for allergies, # 30 tablet, Refills 1, Tot. Refills 1, Maintenance, 03/21/19 17:39:00 EDT, Route to Pharmacy Electronically, [id number], [facility]/pharmacy #[id number] Start Date: 03/21/19 Status: Orderedlosartan 50 mg oral tablet 50 mg, 1, tablet, By Mouth, Daily, needs to schedule fu appt and labs, # 30 tablet, Refills 0, Tot. Refills 0, Maintenance, 08/03/19 18:46:33 EST, Route to Pharmacy Electronically, [id number], [facility]/pharmacy #[id number], Please ask p... Start Date: 08/03/19 Status: Orderedmetoprolol 25 mg oral tablet 25 mg, 1, tablet, By Mouth, 2 times a day, Changing pharmacies from [facility] on [facility], # 180 tablet, Refills 3, Tot. Refills 3, Maintenance, 03/21/19 17:38:52 EDT, Route to Pharmacy Electronically, [id number], [facility]/p... Start Date: 03/21/19 Status: Orderedomeprazole 20 mg oral enteric coated [...] 03/21/19 17:39:02 EDT, Route to Pharmacy Electronically, [id number], [facility]/pharmacy #[id number] Start Date: 03/21/19 Status: Ordered Problem List Condition Effective Dates Status Health Status Informant Hypertension(Confirmed) Active IBS (irritable bowel Active syndrome)(Confirmed) Anxiety and depression(Confirmed) Active Morbid obesity(Confirmed) Active CYNDIE on CPAP(Confirmed) Active [facility]N/[facility]ECARE/VIANEY-Estephanie Active Jay.[phone]/Health [facility], Active Care Coordination(Confirmed) Social History Social History Type Response Smoking Status Never smoker entered on: 07/16/15 Sex Female
--- OUTSIDE RECORDS SUMMARY | 2022-10-15 14:58 | XMS_ITS | Continuity of Care Document ---
:1980 Author Organization [facility] Address [address] [place] [address]- Care Team Providers Name Role Phone Coleman MANSFIELD, Bill Nolasco Primary Care Physician Encounter [facility] [place] Date(s): 09/05/22 - 10/05/22 [facility] [address], [place] [address] Allergies, Adverse Reactions, Alerts Substance Reaction Severity Status lisinopril Cough Active sulfa drugs Active CeleXA Nausea Active Daypro Active Ultram Active Immunizations Given and Recorded Vaccine Date Status Refusal Reason tetanus/diphtheria/pertussis, acel(Tdap) 12/31/21 Recorde d tetanus/diphtheria/pertussis, acel(Tdap) 01/30/14 Given SARS-CoV-2 (COVID-19) Ad26 vaccine 03/20/21 Recorded influenza virus vaccine, inactivated 04/29/18 Recorded influenza virus vaccine, inactivated 04/09/17 Recorded influenza virus vaccine, inactivated 05/01/16 Recorded influenza virus vaccine, inactivated1 07/21/05 Given Influenza Inactive (IM) (oldterm)2 04/05/15 Given Influenza Inactive (IM) (oldterm)3 05/10/14 Recorded Pneumococcal Vaccine (oldterm) 07/21/05 Given 1Result Comment: Pt given VIS , 03/10/05 Lot # [id number] exp. 03/19/062Admin Note: [id number] Comment: [02/07/2015] [facility] amitriptyline 100 mg oral tablet See Instructions, TAKE 1 TABLET BY MOUTH EVERY DAY AT NIGHT NO FURTHER REFILLS WITHOUT APPT, # 14 tablet, 7 Refills, 09/17/22 14:11:00 EST, [id number] Start Date: 09/17/22 Status: OrderedCPAP Machine See Instructions, # 1 each, Maintenance, AutoCPAP 7 to 9 cm of H2O cm H2O, 06/25/16 13:04:35 EDT, Compound Start Date: 06/25/16 Status: OrderedInvega Sustenna 156 mg/mL intramuscular suspension, extended release = 156 mg, Intramuscular, Every 28 days, # 1 each, 2 Refills, Maintenance, 09/29/22 16:32:00 EST[facility] fill upon patient request if the prescription is for a schedule II opioid drug., 158, cm, 09/29/22 15:10:00 EST, Height Start Date: 09/29/22 Status: Orderedlosartan 25 mg oral tablet See Instructions, TAKE 2 TABLETS BY MOUTH DAILY,NO FURTHER REFILLS WITHOUT MD APPT, # 28 tablet, 0 Refills, 09/17/22 14:10:00 EST, [facility]/pharmacy #[id number] Start Date: 09/17/22 Status: Orderedmetoprolol 25 mg oral tablet 25 mg, 1, tablet, By Mouth, 2 times a day, # 60 tablet, Refills 0, Tot. Refills 0, Maintenance, 05/26/22 7:11:00 EDT, [facility], Partial fill upon patient request if the prescription is for a schedule II opioid drug. Start Date: 05/26/22 Stop Date: 06/25/22 Status: Orderedomeprazole 20 mg oral enteric coated capsule 1 capsule = 20 mg, By Mouth, Daily, # 30 capsule, 11 Refills, Maintenance, 12/05/19 15:23:00 EDT, [facility]/pharmacy #[id number], 158, cm, 09/02/19 11:30:00 EST, Height, 100.1, kg, 03/07/19 10:56:00 EDT, Dry Weight Start Date: 12/05/19 Stop Date: 11/29/20 Status: OrderedTylenol Extra Strength 500 mg oral tablet 2 tablet = 1,000 mg, By Mouth, Every 6 hours, PRN as needed for pain, # 50 tablet, 1 Refills, Maintenance, 03/21/19 17:39:02 EDT Start Date: 03/21/19 Stop Date: 04/10/19 Status: Ordered Problem List Condition Confirmation Course Effective Dates Status Health Stat us Informant Hypertension Confirmed Active IBS (irritable Confirmed Active bowel syndrome) Anxiety and Confirmed Active depression Morbid obesity Confirmed Active CYNDIE on CPAP Confirmed Active [facility]N/[facility]ECARE/CC-Lesl Confirmed Active ie Jay.413.38 [id number]/Health [facility], Active Care Coordination Severe obesity Confirmed Active Social History Social History Type Response Smoking Status Never smoker entered on: 07/16/15 Sex Female Patient Care team information Care Team PersonnelName: Coleman MANSFIELD, Bill Nolasco Position: [facility] Resident Member Role: PCP Address: Address: [address] [place] [id number]- Care Team Related PersonsName: BALJINDRE PEÑA Address: home [address] [place] [address] Name: ROSANA LAL Address: home [address] [place] [address]
--- OUTSIDE RECORDS SUMMARY | 2022-10-15 14:58 | XMS_ITS | Continuity of Care Document ---
:1980 Author Organization [facility] Address [address] [place] [address]- Care Team Providers Name Role Phone Bill Cee MD Primary Care Physician Encounter [facility] [place] ACCT R [id number] Date(s): 05/26/22 - 05/26/[address] [address]- Discharge Disposition: A-D/C Home Attending Physician: Luciano Arellano DO Admitting Physician: Luciano Arellano DO Referring Physician: Not on Staff, Referring MD Allergies, Adverse Reactions, Alerts Substance Reaction Severity Status lisinopril Cough Active sulfa drugs Active Ultram Active Daypro Active CeleXA Nausea Active Immunizations Given and Recorded Vaccine Date Status Refusal Reason Influenza Inactive (IM) (oldterm)1 04/05/15 Given Influenza Inactive (IM) (oldterm)2 05/10/14 Recorded tetanus/diphtheria/pertussis, acel(Tdap) 01/30/14 Given Pneumococcal Vaccine (oldterm) 07/21/05 Given influenza virus vaccine, inactivated3 07/21/05 Given 1Admin Note: Manny Comment: [02/07/2015] [id number] Comment: Pt given VIS , 03/10/05 Lot # [id number] exp. 03/19/06 Medications albuterol CFC free 90 mcg/inh inhalation aerosol 2, puffs, Inhalation, 4 times a day, PRN, # 1 each, Refills 2, Tot. Refills 2, Maintenance, 03/21/1917:39:01 EDT, Route to Pharmacy Electronically, [id number], [id number] Start Date: 03/21/19 Status: Orderedamitriptyline 100 mg oral tablet See Instructions, TAKE 1 TABLET BY MOUTH EVERY DAY AT NIGHT, # 90 tablet, 7 Refills, 09/08/20 1:18:00 EST, [facility]/pharmacy #[id number], 158, cm, 06/11/20 15:57:00 EDT, Height, 100.1, kg, 03/07/19 10:56:00 EDT, Dry Weight Start Date: 09/08/20 Status: OrderedbuPROPion 300 mg/24 hours (XL) oral tablet, extended release See Instructions, TAKE 1 TABLET BY MOUTH EVERY DAY IN THE MORNING, # 90 tablet, 7 Refills, 09/12/20 18:39:00 EST, [facility]/pharmacy #[id number], 158, cm, 06/11/20 15:57:00 EDT, Height, 100.1, kg, 03/07/19 10:56:00 EDT, Dry Weight Start Date: 09/12/20 Status: OrderedbusPIRone 10 mg oral tablet See Instructions, TAKE 1 TABLET BY MOUTH TWICE A DAY, # 60 each, Refills 0, Tot. Refills 0, 07/04/2114:18:00 EST, Instructions Replace Required Details, Route to Pharmacy Electronically, [facility] #[id number], 158, cm, 06/11/20 15:57:00 EDT, He... Start [...] 02/14/20 15:43:00 EDT, Route to Pharmacy Electronically, [facility]/pharmacy #[id number], 158, cm, 09/02/19 11:30:00 EST, Height, 100.1, kg, 03/07/19 10:56:00 EDT, Dry... Start Date: 02/14/20 Stop Date: 02/28/20 Status: Orderedfluticasone 50 mcg/inh nasal spray See Instructions, USE 1 SPRAY IN EACH NOSTRIL TWICE DAILY FOR 10 DAYS, # 48 mL, 1 Refills, Maintenance, [id number], 90, USE 1 SPRAY IN EACH NOSTRIL TWICE DAILY FOR 10 DAYS, 158, cm, 09/02/19 11:30:00 EST, Height, 100.1, kg, 03/07/19 10:56:00 EDT,... Start Date: 05/18/20 Status: OrderedLopressor Inj 5 mg, Injection, IV Push Slowly, Every 5 minutes for 3 doses/times, PRN for Blood Pressure, (Systolic) Greater than 160, Routine, 05/26/22 3:33:00 EDT, Stop date Limited # of times Start Date: 05/26/22 Stop Date: 05/26/22 Status: Discontinuedloratadine 10 mg oral tablet 10 mg, 1, tablet, By Mouth, Daily, # 10 tablet, Refills 0, Tot. Refills 0, Maintenance, 09/02/19 11:47:00 EST, Route to Pharmacy Electronically, [facility]/pharmacy #[id number], 158, cm, 09/02/19 11:30:00 EST, Height, 100.1, kg, 03/07/19 10:56:00 EDT, Dry Weight Start Date: 09/02/19 Stop Date: 09/12/19 Status: Orderedlosartan 25 mg oral tablet See Instructions, TAKE 2 TABLETS BY MOUTH DAILY,INSTR:NEEDS TO SCHEDULE FOLLOW UP APPT AND LABS, # 180 tablet, 0 Refills, Maintenance, [id number], 158, cm, 09/02/19 11:30:00 EST, Height, 100.1, kg, 03/07/19 10:56:00 EDT, Dry Weight Start Date: 06/05/20 Status: Orderedmeloxicam 15 mg oral tablet 1 tablet = 15 mg, By Mouth, Daily, # 7 tablet, 0 Refills, Maintenance, 12/26/19 8:36:00 EDT, Tablet,[facility] #[id number], 158, cm, 09/02/19 11:30:00 EST, [...] 2 times a day, Changing pharmacies from [facility], # 180 tablet, Refills 5, Tot. Refills 5, Maintenance, 09/02/19 11:54:00 EST, Route to Pharmacy Electronically, [facility]/pharmacy #[id number], 158, cm, 09/02/19 11:30... Start Date: 09/02/19 Status: Orderedomeprazole 20 mg oral enteric coated capsule 1 capsule = 20 mg, By Mouth, Daily, # 30 capsule, 11 Refills, Maintenance, 12/05/19 15:23:00 EDT, [facility]/pharmacy #[id number], 158, cm, 09/02/19 11:30:00 EST, Height, 100.1, kg, 03/07/19 10:56:00 EDT, Dry Weight Start Date: 12/05/19 Stop Date: 11/29/20 Status: OrderedraNITIdine 150 mg oral tablet 1 tablet = 150 mg, By Mouth, 2 times a day, # 120 tablet, 2 Refills, Maintenance, 11/10/19 8:41:00 EDT, Tablet, [facility]/pharmacy #[id number], 158, cm, 09/02/19 11:30:00 EST, [...] Replace Required Details, Route to Pharmacy Electronically, [id number], 158, cm, 09/02/19 11:30:00 EST, Height, 100.1, kg, 03/07/19 10:56:00 EDT, Dry... Start Date: 06/05/20 Status: Ordered Problem List Condition Confirmation Course Effective Dates Status Health Stat us Informant Hypertension Confirmed Active IBS (irritable Confirmed Active bowel syndrome) Anxiety and Confirmed Active depression Morbid obesity Confirmed Active CYNDIE on CPAP Confirmed Active BHN/ONECARE/CC-Lesl Confirmed Active ie Jay.413.38 6-5307/[facility], Active Care Coordination Vital Signs Most recent to oldest 1 2 3 [Reference Range]: Oxygen Saturation [94-100 %] 94 % 97 % 94 % (05/26/22 7:16 AM) (05/26/22 4:19 AM) (05/26/22 4:1 2 AM) Pulse Rate [55-90 bpm] 88 bpm 90 bpm 104 bpm (05/26/22 7:16 AM) (05/26/22 4:19 AM) *H* (05/26/22 4:12 AM ) Blood Pressure [90-138/55-84 mm 134/89 mm Hg 146/88 mm Hg 134/86 mm Hg Hg] (05/26/22 7:16 AM) *H* (05/26/22 4:12 AM) (05/26/22 4:19 AM) Respiratory Rate [16-30 br/min] 18 br/min 20 br/min 20 br/min (05/26/22 7:16 AM) (05/26/22 4:19 AM) (05/26/22 4:1 2 AM) Temperature [96.8-100.4 DegF] 97.9 DegF 97.6 DegF (05/26/22 7:16 AM) (05/26/22 1:40 AM) Mode of Delivery (Oxygen) Room air Room air Room a ir (05/26/22 7:16 AM) (05/26/22 4:19 AM) (05/26/22 4:1 2 AM) Blood pressure sites Arm, left (05/26/22 1:40 AM) Temperature Route Oral Oral (05/26/22 7:16 AM) (05/26/22 1:40 AM) Social History Social History Type Response Smoking Status Never smoker entered on: 07/16/15 Sex Female Patient Care team information PersonnelName: Bill Cee MD Address: Address: [address] [place] [address] [place] [address]-
--- OUTSIDE RECORDS SUMMARY | 2022-10-15 14:58 | XMS_ITS | Continuity of Care Document ---
:1980 Author Organization [facility] Address [address] [place] [address]- Care Team Providers Name Role Phone Bill Cee MD Primary Care Physician Encounter [facility] [place] ACCT R [id number] Date(s): 10/14/22 - 10/14/[address] [address]- Discharge Disposition: A-D/C Home Attending Physician: Fritz Lugo MD Admitting Physician: Fritz Lugo MD Referring Physician: Not on Staff, Referring MD [...] Lot # [id number] exp. 03/19/062Admin Note: [id number] Comment: [02/07/2015] [facility] Medications amitriptyline 100 mg oral tablet See Instructions, TAKE 1 TABLET BY MOUTH EVERY DAY AT NIGHT NO FURTHER REFILLS WITHOUT APPT, # 14 tablet, 7 Refills, 09/17/22 14:11:00 EST, [id number] Start Date: 09/17/22 Status: OrderedCPAP Machine See Instructions, # 1 each, Maintenance, AutoCPAP 7 to 9 cm of H2O cm H2O, 06/25/16 13:04:35 EDT, Compound Start Date: 06/25/16 Status: OrderedInvega Sustenna 156 mg/mL intramuscular suspension, extended release = 156 mg, Intramuscular, Every 28 days, # 1 each, 2 Refills, Maintenance, 09/29/22 16:32:00 EST, [facility], Partial fill upon patient request if the prescription is for a schedule II opioid drug., 158, cm, 09/29/22 15:10:00 EST, Height Start Date: 09/29/22 Status: Orderedlosartan 25 mg oral tablet See Instructions, TAKE 2 TABLETS BY MOUTH DAILY,NO FURTHER REFILLS WITHOUT MD APPT, # 28 tablet, 0 Refills, 09/17/22 14:10:00 EST, [facility]/pharmacy #[id number] Start Date: 09/17/22 Status: Orderedmetoprolol [...] capsule, 11 Refills, Maintenance, 12/05/19 15:23:00 EDT, [facility]/pharmacy #[id number], 158, cm, 09/02/19 11:30:00 EST, Height, 100.1, kg, 03/07/19 10:56:00 EDT, Dry Weight Start Date: 12/05/19 Stop Date: 11/29/20 Status: OrderedoxyCODONE 5 mg oral tablet 5 mg, 1, tablet, By Mouth, Every 6 hours, PRN, # 12 tablet, Refills 0, Tot. Refills 0, Acute 10/15/22 10:09:00 EST, Pain , Moderate, 10/08/22 10:08:00 EST, Route to Pharmacy Electronically, [facility]/pharmacy #[id number], Partial fill upon patient request if the... Start Date: 10/08/22 Stop Date: 10/15/22 Status: OrderedOxyCODONE IR Tablet 5 mg, Tablet, By Mouth, NITHIN, 10/14/22 7:07:00 EST Start Date: 10/14/22 Stop Date: 10/14/22 Status: CompletedTylenol Extra Strength 500 mg oral tablet 2 [...] Confirmed Active BHN/ONECARE/CC-Lesl Confirmed Active ie Jay.413.38 6-5040/[facility], Active Care Coordination Severe obesity Confirmed Active Results Radiology Reports Exam Date Time Procedure Performing Provider Status 10/14/22 8:18 AM US Doppler Ext Lower Venous Right Elsie Cagle an; Auth (Verified) Notes:(US Doppler Ext Lower Venous Right) Reason For Exam: Pain in limb;Other: RESULT: US Doppler Ext Lower Venous Right US Doppler Ext Lower Venous Right INDICATION: Chest pain sinc 4pm, SOB; Pain in limb; Clinical Question(s): Thrombus; COMPARISON: None. IMAGING TECHNIQUE: Ultrasound of the veins from the groin through the calf was performed using grayscale, color, and spectral Doppler ultrasound assessing for complete compressibility and normal flow characteristics. FINDINGS: Common femoral vein: Patent. No thrombosis. Femoral vein: Patent. No thrombosis. Popliteal vein: Patent. No thrombosis. Gastrocnemius veins: The visualized portions are patent without evidence of thrombosis. Peroneal veins: The visualized portions are patent without evidence of thrombosis. Posterior tibial veins: The visualized portions are patent without evidence of thrombosis. Contralateral common femoral vein: Patent. No thrombosis. OTHER FINDINGS: None. IMPRESSION: No evidence of deep venous thrombosis. I have personally reviewed the images and I agree with this report. WSN: [id number] Ordering Physician: Emmy Prieto Dictated By: Basilio Kidd DO Dictated Date/Time: 10/14/22 9:15 am Reviewed By: Harinder Karimi MD Signed By: Harinder Karimi MD Signed Date/Time: 10/14/22 9:20 am Transcribed By: APRIL Transcribed Date/Time: 10/14/22 8:38 am Exam Date Time Procedure Performing Provider Status 10/14/22 6:[address] Angio Chest Ramsey Dumont Sulaiman Vences (Verif ied) Notes:(CT Angio Chest) Reason For Exam: PE suspected, Intermediate prob, positive D-dimer,;Other:RESULT: CT Angio Chest EXAMINATION: CT Angio Chest INDICATION: Pain. Chest pain. TECHNIQUE: Spiral CTA of the chest was performed after rapid IV contrast administration without cardiac gating, triggered by an MAHENDRA on the main pulmonary artery. Images are formatted in multiple planesusing 2-D multiplanar and 3-D maximum intensity projection. 58 cc of Omnipaque 300 was administered i ntravenously. Weight-based protocol using automatic tube modulation was used to optimize exposure parameters. COMPARISONS: 11/25/2015. ANGIOGRAPHIC FINDINGS: No pulmonary embolism to the subsegmental level. Normal caliber pulmonary arteries. No acute aortic abnormality seen on this study performed without cardiac gating. NON-ANGIOGRAPHIC FINDINGS: Learning And Development Administrator View Findings, Lines and Tubes: None. Trachea and Airways: Patent without evidence of tracheal or endobronchial lesion. Lungs and Pleura: Mild mosaic attenuation pattern throughout the lungs. No effusion or pneumothorax. Mediastinum and sukumar: No mass or hematoma. No mediastinal or hilar lymphadenopathy. No esophageal abnormality. Heart: Upper limit of heart size to borderline cardiomegaly. Small pericardial effusion. Chest Wall Soft Tissues: No adenopathy at the axilla. Diaphragm and upper abdomen: Cholecystectomy. Hepatic steatosis. Bones: No acute abnormality. IMPRESSION: No evidence of pulmonary embolism. Mild mosaic attenuation pattern throughout the lungs. This is likely due to expiration as it is moredependant and diffuse. Small airway inflammation or reactive disease (such as asthma) can have similar appearances. Edema is considered less likely as there is no interlobular septal thickening or pleural effusions. No consolidations. I have personally reviewed the images and I agree with this report. WSN: [id number] Ordering Physician: Emmy Prieto Dictated By: Hakan Lockett MD Dictated Date/Time: 10/14/22 7:43 am Reviewed By: Roxy Estrella MD Signed By: Roxy Estrella MD Signed Date/Time: 10/14/22 7:48 am Transcribed By: APRIL Transcribed Date/Time: 10/14/22 7:01 am Vital Signs Most recent to oldest 1 2 3 [Reference Range]: Height 157.5 cm 157.5 cm (10/14/22 9:37 AM) (10/14/22 2:51 AM) Weight 107.3 kg 107.3 kg (10/14/22 9:37 AM) (10/14/22 2:51 AM) Oxygen Saturation [94-100 %] 97 % 100 % 97 % (10/14/22 9:37 AM) (10/14/22 7:46 AM) (10/14/22 5:3 8 AM) Pulse Rate [55-90 bpm] 73 bpm 87 bpm 68 bpm (10/14/22 9:37 AM) (10/14/22 7:46 AM) (10/14/22 5:3 8 AM) Body Mass Index [18.5-24.99 43.26 kg/m2 kg/m2] *>HHI* (10/14/22 9:37 AM) Blood Pressure [90-138/55-84 mm 132/82 mm Hg 127/92 mm Hg 131/87 mm Hg Hg] (10/14/22 9:37 AM) (10/14/22 7:46 AM) (10/14/22 5:3 8 AM) Respiratory Rate [16-30 br/min] 16 br/min 18 br/min 18 br/min (10/14/22 9:37 AM) (10/14/22 8:43 AM) (10/14/22 7:4 6 AM) Temperature [96.8-100.4 DegF] 97.6 DegF 97.4 DegF (10/14/22 2:51 AM) (10/14/22 2:47 AM) Mode of Delivery (Oxygen) Room air (10/14/22 7:46 AM) Blood pressure sites Arm, left Arm, left Arm, left (10/14/22 7:46 AM) (10/14/22 5:38 AM) (10/14/22 3:3 0 AM) Temperature Route Oral Oral (10/14/22 2:51 AM) (10/14/22 2:47 AM) Dry Weight 107.3 kg 107.3 kg (10/14/22 9:37 AM) (10/14/22 2:51 AM) Social History Social History Type Response Smoking Status Never smoker entered on: 07/16/15 Sex Female EKG study Event Display: EKG Authored Date: Note Emmy Prieto DO: PERFORM, SIGN, VERIFY Event Display: Patient Education Handout Authored Date: BHSPowerscribe , CIS S: TRANSCRIHarinder Campa MD: VERIFY Basilio Kidd DO: SIGN Event Display: Result: Authored Date: US Doppler Ext Lower Venous Right INDICATION: Chest pain sinc 4pm, SOB; Pain in limb; Clinical Question(s): Thrombus; COMPARISON: None. IMAGING TECHNIQUE: Ultrasound of the veins from the groin through the calf was performed using grayscale, color, and spectral Doppler ultrasound assessing for complete compressibility and normal flow characteristics. FINDINGS: Common femoral vein: Patent. No thrombosis. Femoral vein: Patent. No thrombosis. Popliteal vein: Patent. No thrombosis. Gastrocnemius veins: The visualized portions are patent without evidence of thrombosis. Peroneal veins: The visualized portions are patent without evidence of thrombosis. Posterior tibial veins: The visualized portions are patent without evidence of thrombosis. Contralateral common femoral vein: Patent. No thrombosis. OTHER FINDINGS: None. IMPRESSION: No evidence of deep venous thrombosis. I have personally reviewed the images and I agree with this report. WSN: [id number] Ordering Physician: Emmy Prieto Dictated By: Basilio Kidd DO Dictated Date/Time: 10/14/22 9:15 am Reviewed By: Harinder Karimi MD Signed By: Harinder Karimi MD Signed Date/Time: 10/14/22 9:20 am Transcribed By: APRIL Transcribed Date/Time: 10/14/22 8:38 am CTA Chest vessels W contrast IV BHSPowerscribe , CIS S: TRANSCRIBE Hakan Lockett MD L: SIGN Roxy Estrella MD: VERIFY Event Display: Result: Authored Date: [id number] EXAMINATION: CT Angio Chest INDICATION: Pain. Chest pain. TECHNIQUE: Spiral CTA of the chest was performed after rapid IV contrast administration without cardiac gating, triggered by an MAHENDRA on the main pulmonary artery. Images are formatted in multiple planesusing 2-D multiplanar and 3-D maximum intensity projection. 58 cc of Omnipaque 300 was administered i ntravenously. Weight-based protocol using automatic tube modulation was used to optimize exposure parameters. COMPARISONS: 11/25/2015. ANGIOGRAPHIC FINDINGS: No pulmonary embolism to the subsegmental level. Normal caliber pulmonary arteries. No acute aortic abnormality seen on this study performed without cardiac gating. NON-ANGIOGRAPHIC FINDINGS: Learning And Development Administrator View Findings, Lines and Tubes: None. Trachea and Airways: Patent without evidence of tracheal or endobronchial lesion. Lungs and Pleura: Mild mosaic attenuation pattern throughout the lungs. No effusion or pneumothorax. Mediastinum and sukumar: No mass or hematoma. No mediastinal or hilar lymphadenopathy. No esophageal abnormality. Heart: Upper limit of heart size to borderline cardiomegaly. Small pericardial effusion. Chest Wall Soft Tissues: No adenopathy at the axilla. Diaphragm and upper abdomen: Cholecystectomy. Hepatic steatosis. Bones: No acute abnormality. IMPRESSION: No evidence of pulmonary embolism. Mild mosaic attenuation pattern throughout the lungs. This is likely due to expiration as it is moredependant and diffuse. Small airway inflammation or reactive disease (such as asthma) can have similar appearances. Edema is considered less likely as there is no interlobular septal thickening or pleural effusions. No consolidations. I have personally reviewed the images and I agree with this report. WSN: [id number] Ordering Physician: Emmy Prieto Dictated By: Hakan Lockett MD Dictated Date/Time: 10/14/22 7:43 am Reviewed By: Roxy Estrella MD Signed By: Roxy Estrella MD Signed Date/Time: 10/14/22 7:48 am Transcribed By: APRIL Transcribed Date/Time: 10/14/22 7:01 am Patient Care team information Care Team PersonnelName: Bill Cee MD Position: S Resident Member Role: PCP Address: Address: [address] [place] [address] [place], [place] [address] Name: Debbie Ayala RN Position: [facility] ED RN W/OE and Tasks Member Role: Patient Care Provider Name: Brittney MANSFIELD, Fritz Gan Position: [facility] ED Medicine MD Member Role: Admitting Physician Address: Address: [address] [place] [address] [address]- Name: Danitza Alvarado Position: [facility] ED TA [facility] Member Role: Patient Care Provider Name: Heather Mays DO Position: [facility] Resident Member Role: ED Resident Address: Address: [address] [place] [address] [place] [address]- Care Team Related PersonsName: CASEY BALJINDERNeal SPARKS Address: home [address] [place] [address] Name: ROSANA LAL Address: home [address] [address]
--- OUTSIDE RECORDS SUMMARY | 2022-10-15 14:58 | XMS_ITS | Continuity of Care Document ---
:1980 Author Organization [facility] Address [address] [place] [address]- Care Team Providers Name Role Phone Keysha MANSFIELD, Samia Longo Primary Care Physician [place] [facility] [place] 06[place] - 06/18/20 [facility] [address] [place] [address]- [facility] Attending Physician: Bolivar Delgado MD Referring Physician: Keysha MANSFIELD, Samia Longo Allergies, Adverse Reactions, Alerts Substance Reaction Severity Status lisinopril Cough Active sulfa drugs Active Ultram Active Daypro Active CeleXA Nausea Active Immunizations Given and Recorded Vaccine Date Status Refusal Reason Influenza Inactive (IM) (oldterm)1 04/05/15 Given Influenza Inactive (IM) (oldterm)2 05/10/14 Recorded tetanus/diphtheria/pertussis, acel(Tdap) 01/30/14 Given Pneumococcal Vaccine (oldterm) 07/21/05 Given influenza virus vaccine, inactivated3 07/21/05 Given 1Admin Note: [id number] Comment: [02/07/2015] [email or web address] Comment: Pt given VIS , 03/10/05 Lot # [id number] exp. 03/19/06 Medications albuterol CFC free 90 mcg/inh inhalation aerosol 2, puffs, Inhalation, 4 times a day, PRN, # 1 each, Refills 2, Tot. Refills 2, Maintenance, 03/21/1917:39:01 EDT, Route to Pharmacy Electronically, [id number], [id number] Start Date: 03/21/19 Status: OrderedAmbien 10 mg oral tablet 1 tablet = 10 mg, By Mouth, Daily at bedtime, PRN for sleep, 0 Refills, Maintenance, 08/27/16 10:39:25, Tablet Start Date: 08/27/16 Status: Orderedamitriptyline 100 mg oral tablet See Instructions, TAKE 1 TABLET BY MOUTH EVERY DAY AT NIGHT, # 90 tablet, 7 Refills, 06/13/20 7:45:00 EDT, [facility]/pharmacy #[id number], 158, cm, 06/11/20 15:57:00 EDT, Height, 100.1, kg, 03/07/19 10:56:00 EDT, Dry Weight Start Date: 06/13/20 Status: OrderedbuPROPion 300 mg/24 hours (XL) oral tablet, extended release See Instructions, TAKE 1 TABLET BY MOUTH EVERY DAY IN THE MORNING, # 90 tablet, 7 Refills, 06/13/20 7:45:00 EDT, [facility]/pharmacy #[id number], 158, cm, 06/11/20 15:57:00 EDT, Height, 100.1, kg, 03/07/19 10:56:00EDT, Dry Weight Start Date: 06/13/20 Status: OrderedCPAP Machine See Instructions, # 1 each, Maintenance, AutoCPAP 7 to 9 cm of H2O cm H2O, 06/25/16 13:04:35 EDT, Compound Start Date: 06/25/16 Status: Orderedfamotidine 20 mg oral tablet 20 mg, 1, tablet, By Mouth, 2 times a day, # 28 tablet, Refills 0, Tot. Refills 0, Maintenance, 02/14/20 15:43:00 EDT, Route to Pharmacy Electronically, [facility]/pharmacy #[id number], 158, cm, 09/02/19 11:30:00 EST, Height, 100.1, kg, 03/07/19 10:56:00 EDT, Dry... Start Date: 02/14/20 Stop Date: 02/28/20 Status: Orderedfluticasone 50 mcg/inh nasal spray See Instructions, USE 1 SPRAY IN EACH NOSTRIL TWICE DAILY FOR 10 DAYS, # 48 mL, 1 Refills, Maintenance, [facility] STORE [id number], 90, USE 1 SPRAY IN EACH NOSTRIL TWICE DAILY FOR 10 DAYS, 158, cm, 09/02/19 11:30:00 EST, Height, 100.1, kg, 03/07/19 10:56:00 EDT,... Start Date: 05/18/20 Status: Orderedloratadine 10 mg oral tablet 10 mg, 1, tablet, By Mouth, Daily, # 10 tablet, Refills 0, Tot. Refills 0, Maintenance, 09/02/19 11:47:00 EST, Route to Pharmacy Electronically, [facility]/pharmacy #[id number], 158, cm, 09/02/19 11:30:00 EST, Height, 100.1, kg, 03/07/19 10:56:00 EDT, Dry Weight Start Date: 09/02/19 Stop Date: 09/12/19 Status: Orderedlosartan 25 mg oral tablet See Instructions, TAKE 2 TABLETS BY MOUTH DAILY,INSTR:NEEDS TO SCHEDULE FOLLOW UP APPT AND LABS, # 180 tablet, 0 Refills, Maintenance, [id number], 158, cm, 09/02/19 11:30:00 EST, Height, 100.1, kg, 03/07/19 10:56:00 EDT, Dry Weight Start Date: 06/05/20 Status: Orderedmeloxicam 15 mg oral tablet 1 tablet = 15 mg, By Mouth, Daily, # 7 tablet, 0 Refills, Maintenance, 12/26/19 8:36:00 EDT, Tablet,[facility]/pharmacy #[id number], 158, cm, 09/02/19 11:30:00 EST, Height, 100.1, kg, 03/07/19 10:56:00 EDT, Dry Weight Start Date: 12/26/19 Stop Date: 01/02/20 Status: Orderedmetoprolol 25 mg oral tablet 25 mg, 1, tablet, By Mouth, 2 times a day, Changing pharmacies from [facility], # 180 tablet, Refills 5, Tot. Refills 5, Maintenance, 09/02/19 11:54:00 EST, Route to Pharmacy Electronically, [facility]/pharmacy #[id number], 158, cm, 09/02/19 11:30... Start Date: 09/02/19 Status: Orderedomeprazole 20 mg oral enteric coated capsule 1 capsule = 20 mg, By Mouth, Daily, # 30 capsule, 11 Refills, Maintenance, 12/05/19 15:23:00 EDT, [facility]/pharmacy #[id number], 158, cm, 09/02/19 11:30:00 EST, Height, 100.1, kg, 03/07/19 10:56:00 EDT, Dry Weight Start Date: 12/05/19 Stop Date: 11/29/20 Status: OrderedraNITIdine 150 mg oral tablet 1 tablet = 150 mg, By Mouth, 2 times a day, # 120 tablet, 2 Refills, Maintenance, 11/10/19 8:41:00 EDT, Tablet, [facility]/pharmacy #[id number], 158, cm, 09/02/19 11:30:00 EST, Height, [...] Replace Required Details, Route to Pharmacy Electronically, [id number], 158, cm, 09/02/19 11:30:00 EST, Height, 100.1, kg, 03/07/19 10:56:00 EDT, Dry... Start Date: 06/05/20 Status: Ordered Problem List Condition Effective Dates Status Health Status Informant Hypertension(Confirmed) Active IBS (irritable bowel Active syndrome)(Confirmed) Anxiety and depression(Confirmed) Active Morbid obesity(Confirmed) Active CYNDIE on CPAP(Confirmed) Active *BHN/ONECARE/CC-Sergei Active Mac.[id number]/Health Usp, Active Care Coordination(Confirmed) Vital Signs Most recent to oldest [Reference Range]: 1 Height 158 cm (06/11/20 3:57 PM) Oxygen Saturation [94-100 %] 98 % (06/11/20 3:57 PM) Pulse Rate [55-90 bpm] 96 bpm *H* (06/11/20 3:57 PM) Blood Pressure [90-138/55-84 mm Hg] 156/86 mm Hg *H* (06/11/20 3:57 PM) Respiratory Rate [16-30 br/min] 23 br/min (06/11/20 3:57 PM) Mode of Delivery (Oxygen) Room air (06/11/20 3:57 PM) Blood pressure sites Arm, left (06/11/20 3:57 PM) Social History Social History Type Response Smoking Status Never smoker entered on: 07/16/15 Sex Female
--- OUTSIDE RECORDS SUMMARY | 2022-10-15 14:58 | XMS_ITS | Continuity of Care Document ---
:1980 Author Organization [facility] Address [address] [place] [address]- Care Team Providers Name Role Phone Coleman MANSFIELD, Bill Nolasco Primary Care Physician Encounter [facility] Date(s): 08/28/22 - 09/27/22 [facility] [address], [place] [address] Allergies, Adverse Reactions, Alerts Substance Reaction Severity Status lisinopril Cough Active sulfa drugs Active CeleXA Nausea Active Daypro Active Ultram Active Immunizations Given and Recorded Vaccine Date Status Refusal Reason Influenza Inactive (IM) (oldterm)1 04/05/15 Given Influenza Inactive (IM) (oldterm)2 05/10/14 Recorded tetanus/diphtheria/pertussis, acel(Tdap) 01/30/14 Given Pneumococcal Vaccine (oldterm) 07/21/05 Given influenza virus vaccine, inactivated3 07/21/05 Given 1Admin Note: Manny Comment: [02/07/2015] [id number] Comment: Pt given VIS , 03/10/05 Lot # [id number] exp. 03/19/06 Medications albuterol CFC free 90 mcg/inh inhalation aerosol 2, puffs, Inhalation, 4 times a day, PRN, # 1 each, Refills 2, Tot. Refills 2, Maintenance, 03/21/1917:39:01 EDT, Route to Pharmacy Electronically, [id number], [id number] Start Date: 03/21/19 Status: Orderedamitriptyline 100 mg oral tablet See Instructions, TAKE 1 TABLET BY MOUTH EVERY DAY AT NIGHT NO FURTHER REFILLS WITHOUT APPT, # 14 tablet, 7 Refills, 09/17/22 14:11:00 EST, [facility]/pharmacy #[id number] Start Date: 09/17/22 Status: OrderedbuPROPion 300 mg/24 hours (XL) oral tablet, extended release See Instructions, TAKE 1 TABLET BY MOUTH EVERY DAY IN THE MORNING, # 90 tablet, 7 Refills, 09/12/20 18:39:00 EST, [facility]/pharmacy #[id number], 158, cm, 06/11/20 15:57:00 EDT, Height, 100.1, kg, 03/07/19 10:56:00 EDT, Dry Weight Start Date: 09/12/20 Status: OrderedbusPIRone 10 mg oral tablet See Instructions, TAKE 1 TABLET BY MOUTH TWICE A DAY, # 60 each, Refills 0, Tot. Refills 0, 07/04/2114:18:00 EST, Instructions Replace Required Details, Route to Pharmacy Electronically, [facility] #[id number], 158, cm, 06/11/20 15:57:00 EDT, He... Start [...] 02/14/20 15:43:00 EDT, Route to Pharmacy Electronically, [facility]/pharmacy #[id number], 158, cm, 09/02/19 11:30:00 EST, Height, 100.1, kg, 03/07/19 10:56:00 EDT, Dry... Start Date: 02/14/20 Stop Date: 02/28/20 Status: Orderedfluticasone 50 mcg/inh nasal spray See Instructions, USE 1 SPRAY IN EACH NOSTRIL TWICE DAILY FOR 10 DAYS, # 48 mL, 1 Refills, Maintenance, [facility], 90, USE 1 SPRAY IN EACH NOSTRIL TWICE DAILY FOR 10 DAYS, 158, cm, 09/02/19 11:30:00 EST, Height, 100.1, kg, 03/07/19 10:56:00 EDT,... Start Date: 05/18/20 Status: Orderedloratadine 10 mg oral tablet 10 mg, 1, tablet, By Mouth, Daily, # 10 tablet, Refills 0, Tot. Refills 0, Maintenance, 09/02/19 11:47:00 EST, [id number] 158, cm, 09/02/19 11:30:00 EST, Height, 100.1, kg, 03/07/19 10:56:00 EDT, Dry Weight Start Date: 09/02/19 Stop Date: 09/12/19 Status: Orderedlosartan 25 mg oral tablet See Instructions, TAKE 2 TABLETS BY MOUTH DAILY,NO FURTHER REFILLS WITHOUT MD APPT, # 28 tablet, 0 Refills, 09/17/22 14:10:00 EST, [facility]/pharmacy #[id number] Start Date: 09/17/22 Status: Orderedmeloxicam 15 mg oral tablet 1 tablet = 15 mg, By Mouth, Daily, # 7 tablet, 0 Refills, Maintenance, 12/26/19 8:36:00 EDT, Tablet,[facility]/pharmacy #[id number], 158, cm, 09/02/19 11:30:00 [...] day, Changing pharmacies from [facility] on [facility], # 180 tablet, Refills 5, Tot. Refills 5, Maintenance, 09/02/19 11:54:00 EST, [id number] 158, cm, 09/02/19 11:30... Start Date: 09/02/19 Status: Orderedomeprazole 20 mg oral enteric coated capsule 1 capsule = 20 mg, By Mouth, Daily, # 30 capsule, 11 Refills, Maintenance, 12/05/19 15:23:00 EDT, [facility]/pharmacy #[id number], 158, cm, 09/02/19 11:30:00 EST, Height, 100.1, kg, 03/07/19 10:56:00 EDT, Dry Weight Start Date: 12/05/19 Stop Date: 11/29/20 Status: OrderedraNITIdine 150 mg oral tablet 1 tablet = 150 mg, By Mouth, 2 times a day, # 120 tablet, 2 Refills, Maintenance, 11/10/19 8:41:00 EDT, Tablet, [facility]/pharmacy #[id number], 158, cm, 09/02/19 11:30:00 [...] Replace Required Details, Route to Pharmacy Electronically, [facility] STORE [facility], 158, cm, 09/02/19 11:30:00 EST, Height, 100.1, kg, 03/07/19 10:56:00 EDT, Dry... Start Date: 06/05/20 Status: Ordered Problem List Condition Confirmation Course Effective Dates Status Health Stat us Informant Hypertension Confirmed Active IBS (irritable Confirmed Active bowel syndrome) Anxiety and Confirmed Active depression Morbid obesity Confirmed Active CYNDIE on CPAP Confirmed Active BHN/ONECARE/CC-Lesl Confirmed Active ie Jay.[id number] [id number]/Health Intermediate, Active Care Coordination Social History Social History Type Response Smoking Status Never smoker entered on: 07/16/15 Sex Female Patient Care team information Care Team PersonnelName: Coleman MANSFIELD, Bill Nolasco Position: [facility] Resident Member Role: PCP Address: Address: [address] [facility] [place] [address]- Care Team Related PersonsName: BALJINDER PEÑA Address: home [address] [place] [address] Name: ROSANA LAL Address: home [address] [place] [address]
--- OUTSIDE RECORDS SUMMARY | 2022-10-15 14:58 | XMS_ITS | Continuity of Care Document ---
:1980 Author Organization [facility] Address [address] [place] [address]- Care Team Providers Name Role Phone Keysha MANSFIELD, Samia Longo Primary Care Physician [phone] Encounter [place] Date(s): 09/23/19 - 01/21/20 [facility] [address] [address]- [facility] Attending Physician: Aline Brian NP Admitting Physician: Aline Brian NP Referring Physician: Keysha MANSFIELD, Samia Longo Allergies, [...] 07/21/05 Given 1Admin Note: Manny Comment: [02/07/2015] [id number] Comment: Pt given VIS , 03/10/05 Lot # [id number] exp. 03/19/06 Medications albuterol CFC free 90 mcg/inh inhalation aerosol 2, puffs, Inhalation, 4 times a day, PRN, # 1 each, Refills 2, Tot. Refills 2, Maintenance, 03/21/1917:39:01 EDT, Route to Pharmacy Electronically, [id number], [id number] Start Date: 03/21/19 Status: OrderedAmbien 10 mg oral tablet 1 tablet = 10 mg, By Mouth, Daily at bedtime, PRN for sleep, 0 Refills, Maintenance, 08/27/16 10:39:25, Tablet Start Date: 08/27/16 Status: Orderedamitriptyline 100 mg oral tablet See Instructions, TAKE 1 TABLET BY MOUTH EVERY DAY AT NIGHT, # 30 tablet, 5 Refills, Maintenance, 12/05/19 14:50:00 EDT, [facility]/pharmacy #[id number], 158, cm, 09/02/19 11:30:00 EST, Height, 100.1, kg, 03/07/19 10:56:00 EDT, Dry Weight Start Date: 12/05/19 Status: OrderedbuPROPion 300 mg/24 hours (XL) oral tablet, extended release See Instructions, TAKE 1 TABLET BY MOUTH EVERY DAY IN THE MORNING, # 30 tablet, 4 Refills, Maintenance, 01/05/20 15:17:00 EDT, [facility]/pharmacy #[id number], 158, cm, 09/02/19 11:30:00 [...] mL, 5 Refills, Maintenance, 11/22/19 16:40:00 EDT, [place], [facility]/pharmacy #0993, 1 sprays Nares, Both 2 times a day,x10 days, 158, cm, 09/02/19 11:30:00 EST, Height, 100.1, kg, 03/07/19 10:56:00 EDT, Dry Weight Start Date: 11/22/19 Stop Date: 01/21/20 Status: Orderedloratadine 10 mg oral tablet 10 mg, 1, tablet, By Mouth, Daily, # 10 tablet, Refills 0, Tot. Refills 0, Maintenance, 09/02/19 11:47:00 EST, Route to Pharmacy Electronically, [facility]/pharmacy #[id number], 158, cm, 09/02/19 11:30:00 EST, Height, 100.1, kg, 03/07/19 10:56:00 EDT, Dry Weight Start Date: 09/02/19 Stop Date: 09/12/19 Status: Orderedlosartan 50 mg oral tablet 50 mg, 1, tablet, By Mouth, Daily, needs to schedule fu appt and labs, # 30 tablet, Refills 5, Tot. Refills 5, Maintenance, 09/02/19 11:53:00 EST, Route to Pharmacy Electronically, [facility]/pharmacy #[id number], Please ask pt to schedule followup appt. thank you... Start Date: 09/02/19 Status: Orderedmeloxicam 15 mg oral tablet 1 tablet = 15 mg, By Mouth, Daily, # 7 tablet, 0 Refills, Maintenance, 12/26/19 8:36:00 EDT, Tablet,[facility]/pharmacy #0993, 158, cm, 09/02/19 11:30:00 EST, Height, 100.1, kg, 03/07/19 10:56:00 EDT, Dry Weight Start Date: 12/26/19 Stop Date: 01/02/20 Status: Orderedmetoprolol 25 mg oral tablet 25 mg, 1, tablet, By Mouth, 2 times a day, Changing pharmacies from [facility] on [facility], # 180 tablet, Refills 5, Tot. Refills 5, Maintenance, 09/02/19 11:54:00 EST, Route to Pharmacy Electronically, [facility]/pharmacy #[id number], 158, cm, 09/02/19 11:30... Start Date: 09/02/19 Status: Orderedomeprazole 20 mg oral enteric coated capsule 1 capsule = 20 mg, By Mouth, Daily, # 30 capsule, 11 Refills, Maintenance, 12/05/19 15:23:00 EDT, [facility]/pharmacy #[id number], 158, cm, 09/02/19 11:30:00 EST, Height, 100.1, kg, 03/07/19 10:56:00 EDT, Dry Weight Start Date: 12/05/19 Stop Date: 11/29/20 Status: OrderedraNITIdine 150 mg oral tablet 1 tablet = 150 mg, By Mouth, 2 times a day, # 120 tablet, 2 Refills, Maintenance, 11/10/19 8:41:00 EDT, Tablet, [facility]/pharmacy #[id number], 158, cm, 09/02/19 11:30:00 [...] 12/05/19 15:19:00 EDT, Route to Pharmacy Electronically, [facility]/pharmacy #[id number], 158, cm, 09/02/19 11:30:00 EST, Height, 100.1, kg, 03/07/19 10:56:00 EDT, Dry Weight Start Date: 12/05/19 Stop Date: 02/03/20 Status: OrderedvalACYclovir 500 mg oral tablet 500 mg, 1, tablet, By Mouth, Daily, # 90 tablet, Refills 1, Tot. Refills 1, Maintenance, 12/05/19 15:21:00 EDT, Route to Pharmacy Electronically, [facility]/pharmacy #[id number], 158, cm, 09/02/19 11:30:00 EST, Height, 100.1, kg, 03/07/19 10:56:00 EDT, Dry Weight Start Date: 12/05/19 Status: Ordered Problem List Condition Effective Dates Status Health Status Informant Hypertension(Confirmed) Active IBS (irritable bowel Active syndrome)(Confirmed) Anxiety and depression(Confirmed) Active Morbid obesity(Confirmed) Active CYNDIE on CPAP(Confirmed) Active *BHN/ONECARE/CC-Sergei Active Mac.972.400-1001/Health Intermediate, Active Care Coordination(Confirmed) Social History Social History Type Response Smoking Status Never smoker entered on: 07/16/15 Sex Female
--- OUTSIDE RECORDS SUMMARY | 2022-10-15 14:58 | XMS_ITS | Continuity of Care Document ---
:1980 Author Organization [facility] Address [address] [place] [address]- Care Team Providers Name Role Phone Keysha MANSFIELD, Samia Longo Primary Care Physician [place] [facility] - 08/29/20 [facility] [address], [place] [address] Allergies, Adverse Reactions, Alerts Substance Reaction Severity Status lisinopril Cough Active sulfa drugs Active Ultram Active Daypro Active CeleXA Nausea Active Immunizations Given and Recorded Vaccine Date Status Refusal Reason Influenza Inactive (IM) (oldterm)1 04/05/15 Given Influenza Inactive (IM) (oldterm)2 05/10/14 Recorded tetanus/diphtheria/pertussis, acel(Tdap) 01/30/14 Given Pneumococcal Vaccine (oldterm) 07/21/05 Given influenza virus vaccine, inactivated3 07/21/05 Given 1Admin Note: [id number] Comment: [02/07/2015] [id number] Comment: Pt given VIS , 03/10/05 Lot # [id number] exp. 03/19/06 Medications albuterol CFC free 90 mcg/inh inhalation aerosol 2, puffs, Inhalation, 4 times a day, PRN, # 1 each, Refills 2, Tot. Refills 2, Maintenance, 03/21/1917:39:01 EDT, Route to Pharmacy Electronically, [id number], [id number] Start Date: 03/21/19 Status: OrderedAmbien 10 mg oral tablet 1 tablet = 10 mg, By Mouth, Daily at bedtime, PRN as needed for insomnia, for 30 days, # 30 tablet, 7 Refills, Acute 03/30/21 15:33:00 EDT, 12/10/20 15:33:00 EST, Tablet, [facility]/pharmacy #0993, Partial fill upon patient request if the prescription is for... Start Date: 08/02/20 Stop Date: 03/30/21 Status: Orderedamitriptyline 100 mg oral tablet See Instructions, TAKE 1 TABLET BY MOUTH EVERY DAY AT NIGHT, # 90 tablet, 7 Refills, 06/13/20 7:45:00 EDT, [facility]/pharmacy #[id number], 158, cm, 06/11/20 15:57:00 EDT, Height, 100.1, kg, 03/07/19 10:56:00 EDT, Dry Weight Start Date: 06/13/20 Status: OrderedbuPROPion 300 mg/24 hours (XL) oral tablet, extended release See Instructions, TAKE 1 TABLET BY MOUTH EVERY DAY IN THE MORNING, # 90 tablet, 7 Refills, 06/13/20 7:45:00 EDT, [facility]/pharmacy #0993, 158, cm, 06/11/20 15:57:00 EDT, Height, 100.1, kg, 03/07/19 10:56:00EDT, Dry Weight Start Date: 06/13/20 Status: OrderedbusPIRone 10 mg oral tablet See Instructions, TAKE 1 TABLET BY MOUTH TWICE A DAY, # 180 tablet, Refills 8, Tot. Refills 8, 07/03/20 7:23:00 EST, Instructions Replace Required Details, Route to Pharmacy Electronically, [facility]/pharmacy #[id number], 158, cm, 06/11/20 15:57:00 EDT, [...] 15:43:00 EDT, Route to Pharmacy Electronically, [facility]/pharmacy #0993, 158, cm, 09/02/19 11:30:00 EST, Height, 100.1, kg, 03/07/19 10:56:00 EDT, Dry... Start Date: 02/14/20 Stop Date: 02/28/20 Status: Orderedfluticasone 50 mcg/inh nasal spray See Instructions, USE 1 SPRAY IN EACH NOSTRIL TWICE DAILY FOR 10 DAYS, # 48 mL, 1 Refills, Maintenance, [facility]ORE [address], 90, USE 1 SPRAY IN EACH NOSTRIL TWICE DAILY FOR 10 DAYS, 158, cm, 09/02/19 11:30:00 EST, Height, 100.1, kg, 03/07/19 10:56:00 EDT,... Start Date: 05/18/20 Status: Orderedloratadine 10 mg oral tablet 10 mg, 1, tablet, By Mouth, Daily, # 10 tablet, Refills 0, Tot. Refills 0, Maintenance, 09/02/19 11:47:00 EST, Route to Pharmacy Electronically, [facility]/pharmacy #[id number], 158, cm, 09/02/19 11:30:00 EST, Height, 100.1, kg, 03/07/19 10:56:00 EDT, Dry Weight Start Date: 09/02/19 Stop Date: 09/12/19 Status: Orderedlosartan 25 mg oral tablet See Instructions, TAKE 2 TABLETS BY MOUTH DAILY,INSTR:NEEDS TO SCHEDULE FOLLOW UP APPT AND LABS, # 180 tablet, 0 Refills, Maintenance, [facility]ORE [address], 158, cm, 09/02/19 11:30:00 EST, Height, 100.1, kg, 03/07/19 10:56:00 EDT, Dry Weight Start Date: 06/05/20 Status: Orderedmeloxicam 15 mg oral tablet 1 tablet = 15 mg, By Mouth, Daily, # 7 tablet, 0 Refills, Maintenance, 12/26/19 8:36:00 EDT, Tablet,[facility]/pharmacy #[id number], 158, cm, 09/02/19 11:30:00 EST, Height, 100.1, kg, 03/07/19 10:56:00 EDT, Dry Weight Start Date: 12/26/19 Stop Date: 01/02/20 Status: Orderedmetoprolol 25 mg oral tablet 25 mg, 1, tablet, By Mouth, 2 times a day, Changing pharmacies from [facility], # 180 tablet, Refills 5, Tot. Refills 5, Maintenance, 09/02/19 11:54:00 EST, Route to Pharmacy Electronically, [facility]/pharmacy #[id number], 158, cm, 09/02/19 11:30... Start Date: 09/02/19 Status: Orderedomeprazole 20 mg oral enteric coated capsule 1 capsule = 20 mg, By Mouth, Daily, # 30 capsule, 11 Refills, Maintenance, 12/05/19 15:23:00 EDT, [facility]/pharmacy #0993, 158, cm, 09/02/19 11:30:00 EST, Height, 100.1, kg, 03/07/19 10:56:00 EDT, Dry Weight Start Date: 12/05/19 Stop Date: 11/29/20 Status: OrderedraNITIdine 150 mg oral tablet 1 tablet = 150 mg, By Mouth, 2 times a day, # 120 tablet, 2 Refills, Maintenance, 11/10/19 8:41:00 EDT, Tablet, [facility]/pharmacy #[id number], 158, cm, 09/02/19 11:30:00 EST, [...] Required Details, Route to Pharmacy Electronically, [facility], 158, cm, 09/02/19 11:30:00 EST, Height, 100.1, kg, 03/07/19 10:56:00 EDT, Dry... Start Date: 06/05/20 Status: Ordered Problem List Condition Effective Dates Status Health Status Informant Hypertension(Confirmed) Active IBS (irritable bowel Active syndrome)(Confirmed) Anxiety and depression(Confirmed) Active Morbid obesity(Confirmed) Active CYNDIE on CPAP(Confirmed) Active BHN/ONECARE/Raf Thompson.[phone]/Health Longterm, Active Care Coordination(Confirmed) Social History Social History Type Response Smoking Status Never smoker entered on: 07/16/15 Sex Female
--- OUTSIDE RECORDS SUMMARY | 2022-10-15 14:58 | XMS_ITS | Continuity of Care Document ---
:1980 Author Organization [facility] Address [address] [place] [address]- Care Team Providers Name Role Phone Keysha MANSFIELD, Samia Longo Primary Care Physician [phone] Encounter [facility] Date(s): 09/11/20 - 10/11/20 [facility] [address] [place], [place] [address] Allergies, Adverse Reactions, Alerts Substance Reaction Severity Status lisinopril Cough Active sulfa drugs Active Ultram Active Daypro Active CeleXA Nausea Active Immunizations Given and Recorded Vaccine Date Status Refusal Reason Influenza Inactive (IM) (oldterm)1 04/05/15 Given Influenza Inactive (IM) (oldterm)2 05/10/14 Recorded tetanus/diphtheria/pertussis, acel(Tdap) 01/30/14 Given Pneumococcal Vaccine (oldterm) 07/21/05 Given influenza virus vaccine, inactivated3 07/21/05 Given 1Admin Note: [email or web address] Comment: [02/07/2015] [email or web address] Comment: Pt given VIS , 03/10/05 Lot # [id number] exp. 03/19/06 Medications albuterol CFC free 90 mcg/inh inhalation aerosol 2, puffs, Inhalation, 4 times a day, PRN, # 1 each, Refills 2, Tot. Refills 2, Maintenance, 03/21/1917:39:01 EDT, Route to Pharmacy Electronically, [id number], [id number] Start Date: 03/21/19 Status: OrderedAmbien 10 mg oral tablet 1 tablet = 10 mg, By Mouth, Daily at bedtime, PRN as needed for insomnia, for 30 days, # 30 tablet, 7 Refills, Acute 03/30/21 15:33:00 EDT, 08/02/20 15:33:00 EST, Tablet, [facility]/pharmacy #[id number], Partial fill upon patient request if the prescription is for... Start Date: 08/02/20 Stop Date: 03/30/21 Status: Orderedamitriptyline 100 mg oral tablet See Instructions, TAKE 1 TABLET BY MOUTH EVERY DAY AT NIGHT, # 90 tablet, 7 Refills, 09/08/20 1:18:00 EST, [facility]/pharmacy #[id number], 158, cm, 06/11/20 15:57:00 EDT, Height, 100.1, kg, 03/07/19 10:56:00 EDT, Dry Weight Start Date: 09/08/20 Status: OrderedbuPROPion 300 mg/24 hours (XL) oral tablet, extended release See Instructions, TAKE 1 TABLET BY MOUTH EVERY DAY IN THE MORNING, # 90 tablet, 7 Refills, 09/12/20 18:39:00 EST, [facility]/pharmacy #[id number], 158, cm, 06/11/20 15:57:00 EDT, Height, 100.1, kg, 03/07/19 10:56:00 EDT, Dry Weight Start Date: 09/12/20 Status: OrderedbusPIRone 10 mg oral tablet See Instructions, TAKE 1 TABLET BY MOUTH TWICE A DAY, # 180 tablet, Refills 8, Tot. Refills 8, 07/03/20 7:23:00 EST, Instructions Replace Required Details, Route to Pharmacy Electronically, [facility]/pharmacy #[id number], 158, cm, 06/11/20 15:57:00 EDT, Height, [...] 02/14/20 15:43:00 EDT, Route to Pharmacy Electronically, [facility]/pharmacy #[id number], 158, cm, 09/02/19 11:30:00 EST, Height, 100.1, kg, 03/07/19 10:56:00 EDT, Dry... Start Date: 02/14/20 Stop Date: 02/28/20 Status: Orderedfluticasone 50 mcg/inh nasal spray See Instructions, USE 1 SPRAY IN EACH NOSTRIL TWICE DAILY FOR 10 DAYS, # 48 mL, 1 Refills, Maintenance, [id number], 90, USE 1 SPRAY IN EACH NOSTRIL TWICE DAILY FOR 10 DAYS, 158, cm, 09/02/19 11:30:00 EST, Height, 100.1, kg, 03/07/19 10:56:00 EDT,... Start Date: 05/18/20 Status: Orderedloratadine 10 mg oral tablet 10 mg, 1, tablet, By Mouth, Daily, # 10 tablet, Refills 0, Tot. Refills 0, Maintenance, 09/02/19 11:47:00 EST, Route to Pharmacy Electronically, [facility]/pharmacy #[id number], 158, cm, 09/02/19 11:30:00 EST, Height, 100.1, kg, 03/07/19 10:56:00 EDT, Dry Weight Start Date: 09/02/19 Stop Date: 09/12/19 Status: Orderedlosartan 25 mg oral tablet See Instructions, TAKE 2 TABLETS BY MOUTH DAILY,INSTR:NEEDS TO SCHEDULE FOLLOW UP APPT AND LABS, # 180 tablet, 0 Refills, Maintenance, [id number], 158, cm, 09/02/19 11:30:00 EST, Height, 100.1, kg, 03/07/19 10:56:00 EDT, Dry Weight Start Date: 06/05/20 Status: Orderedmeloxicam 15 mg oral tablet 1 tablet = 15 mg, By Mouth, Daily, # 7 tablet, 0 Refills, Maintenance, 12/26/19 8:36:00 EDT, Tablet,[facility]/pharmacy #[id number], 158, cm, 09/02/19 11:30:00 EST, Height, 100.1, kg, 03/07/19 10:56:00 EDT, Dry Weight Start Date: 12/26/19 Stop Date: 01/02/20 Status: Orderedmetoprolol 25 mg oral tablet 25 mg, 1, tablet, By Mouth, 2 times a day, Changing pharmacies from [facility], # 180 tablet, Refills 5, Tot. Refills 5, Maintenance, 09/02/19 11:54:00 EST, Route to Pharmacy Electronically, [facility]/pharmacy #[id number], 158, cm, 09/02/19 11:30... Start Date: 09/02/19 Status: Orderedomeprazole 20 mg oral enteric coated capsule 1 capsule = 20 mg, By Mouth, Daily, # 30 capsule, 11 Refills, Maintenance, 12/05/19 15:23:00 EDT, [facility]/pharmacy #[id number], 158, cm, 09/02/19 11:30:00 EST, Height, 100.1, kg, 03/07/19 10:56:00 EDT, Dry Weight Start Date: 12/05/19 Stop Date: 11/29/20 Status: OrderedraNITIdine 150 mg oral tablet 1 tablet = 150 mg, By Mouth, 2 times a day, # 120 tablet, 2 Refills, Maintenance, 11/10/19 8:41:00 EDT, Tablet, [facility]/pharmacy #[id number], 158, cm, 09/02/19 11:30:00 EST, Height, [...] Replace Required Details, Route to Pharmacy Electronically, [id number], 158, cm, 09/02/19 11:30:00 EST, Height, 100.1, kg, 03/07/19 10:56:00 EDT, Dry... Start Date: 06/05/20 Status: Ordered Problem List Condition Effective Dates Status Health Status Informant Hypertension(Confirmed) Active IBS (irritable bowel Active syndrome)(Confirmed) Anxiety and depression(Confirmed) Active Morbid obesity(Confirmed) Active CYNDIE on CPAP(Confirmed) Active [facility]/CC-Estephanie Active Jay.[phone]/Health Shelter, Active Care Coordination(Confirmed) Social History Social History Type Response Smoking Status Never smoker entered on: 07/16/15 Sex Female
--- OUTSIDE RECORDS SUMMARY | 2022-10-15 14:58 | XMS_ITS | Continuity of Care Document ---
:1980 Author Organization [facility] Address [address] [place] [address]- Care Team Providers Name Role Phone Keysha MANSFIELD, Samia Longo Primary Care Physician [place] [facility] 12/26[place] - 01/25/20 [facility] [address] [place] [address]- [facility] Attending Physician: Henri Owens Admitting Physician: AdmtrHenri Referring Physician: Admtr, Henri Allergies, Adverse Reactions, Alerts Substance Reaction Severity Status lisinopril Cough Active sulfa drugs Active Ultram Active Daypro Active CeleXA Nausea Active Immunizations Given and Recorded Vaccine Date Status Refusal Reason Influenza Inactive (IM) (oldterm)1 04/05/15 Given Influenza Inactive (IM) (oldterm)2 05/10/14 Recorded tetanus/diphtheria/pertussis, acel(Tdap) 01/30/14 Given Pneumococcal Vaccine (oldterm) 07/21/05 Given influenza virus vaccine, inactivated3 07/21/05 Given 1Admin Note: Manny Comment: [02/07/2015] [email or web address] Comment: Pt given VIS , 03/10/05 Lot # [id number] exp. 03/19/06 Medications albuterol CFC free 90 mcg/inh inhalation aerosol 2, puffs, Inhalation, 4 times a day, PRN, # 1 each, Refills 2, Tot. Refills 2, Maintenance, 03/21/1917:39:01 EDT, Route to Pharmacy Electronically, [id number], [id number] Start Date: 03/21/19 Status: OrderedAmbien 10 mg oral tablet 1 tablet = 10 mg, By Mouth, Daily at bedtime, PRN for sleep, 0 Refills, Maintenance, 08/27/16 10:39:25, Tablet Start Date: 08/27/16 Status: Orderedamitriptyline 100 mg oral tablet See Instructions, TAKE 1 TABLET BY MOUTH EVERY DAY AT NIGHT, # 30 tablet, 5 Refills, Maintenance, 12/05/19 14:50:00 EDT, [facility]/pharmacy #[id number], 158, cm, 09/02/19 11:30:00 EST, Height, 100.1, kg, 03/07/19 10:56:00 EDT, Dry Weight Start Date: 12/05/19 Status: OrderedbuPROPion 300 mg/24 hours (XL) oral tablet, extended release See Instructions, TAKE 1 TABLET BY MOUTH EVERY DAY IN THE MORNING, # 30 tablet, 4 Refills, Maintenance, 01/05/20 15:17:00 EDT, [facility]/pharmacy #[id number], 158, cm, 09/02/19 11:30:00 EST, [...] mL, 5 Refills, Maintenance, 11/22/19 16:40:00 EDT, [place], [facility]/pharmacy #[id number], 1 sprays Nares, Both 2 times a day,x10 days, 158, cm, 09/02/19 11:30:00 EST, Height, 100.1, kg, 03/07/19 10:56:00 EDT, Dry Weight Start Date: 11/22/19 Stop Date: 01/21/20 Status: Orderedloratadine 10 mg oral tablet 10 mg, 1, tablet, By Mouth, Daily, # 10 tablet, Refills 0, Tot. Refills 0, Maintenance, 09/02/19 11:47:00 EST, Route to Pharmacy Electronically, [facility]/pharmacy #[id number], 158, cm, 09/02/19 11:30:00 EST, Height, 100.1, kg, 03/07/19 10:56:00 EDT, Dry Weight Start Date: 09/02/19 Stop Date: 09/12/19 Status: Orderedlosartan 50 mg oral tablet 50 mg, 1, tablet, By Mouth, Daily, needs to schedule fu appt and labs, # 30 tablet, Refills 5, Tot. Refills 5, Maintenance, 09/02/19 11:53:00 EST, Route to Pharmacy Electronically, [facility]/pharmacy #[id number], Please ask pt to schedule followup appt. thank you... Start Date: 09/02/19 Status: Orderedmeloxicam 15 mg oral tablet 1 tablet = 15 mg, By Mouth, Daily, # 7 tablet, 0 Refills, Maintenance, 12/26/19 8:36:00 EDT, Tablet,[facility]/pharmacy #[id number], 158, cm, 09/02/19 11:30:00 EST, Height, 100.1, kg, 03/07/19 10:56:00 EDT, Dry Weight Start Date: 12/26/19 Stop Date: 01/02/20 Status: Orderedmetoprolol 25 mg oral tablet 25 mg, 1, tablet, By Mouth, 2 times a day, Changing pharmacies from [facility], # 180 tablet, Refills 5, Tot. Refills 5, Maintenance, 09/02/19 11:54:00 EST, Route to Pharmacy Electronically, [facility]/pharmacy #[id number], 158, cm, 09/02/19 11:30... Start Date: 09/02/19 Status: Orderedomeprazole 20 mg oral enteric coated capsule 1 capsule = 20 mg, By Mouth, Daily, # 30 capsule, 11 Refills, Maintenance, 12/05/19 15:23:00 EDT, [facility]/pharmacy #[id number], 158, cm, 09/02/19 11:30:00 EST, Height, 100.1, kg, 03/07/19 10:56:00 EDT, Dry Weight Start Date: 12/05/19 Stop Date: 11/29/20 Status: OrderedraNITIdine 150 mg oral tablet 1 tablet = 150 mg, By Mouth, 2 times a day, # 120 tablet, 2 Refills, Maintenance, 11/10/19 8:41:00 EDT, Tablet, [facility]/pharmacy #[id number], 158, cm, 09/02/19 11:30:00 EST, [...] 12/05/19 15:19:00 EDT, Route to Pharmacy Electronically, [facility]/pharmacy #[id number], 158, cm, 09/02/19 11:30:00 EST, Height, 100.1, kg, 03/07/19 10:56:00 EDT, Dry Weight Start Date: 12/05/19 Stop Date: 02/03/20 Status: OrderedvalACYclovir 500 mg oral tablet 500 mg, 1, tablet, By Mouth, Daily, # 90 tablet, Refills 1, Tot. Refills 1, Maintenance, 12/05/19 15:21:00 EDT, Route to Pharmacy Electronically, [facility]/pharmacy #[id number], 158, cm, 09/02/19 11:30:00 EST, Height, 100.1, kg, 03/07/19 10:56:00 EDT, Dry Weight Start Date: 12/05/19 Status: Ordered Problem List Condition Effective Dates Status Health Status Informant Hypertension(Confirmed) Active IBS (irritable bowel Active syndrome)(Confirmed) Anxiety and depression(Confirmed) Active Morbid obesity(Confirmed) Active CYNDIE on CPAP(Confirmed) Active *[facility]/CC-Sergei Active Mac.[phone]/Health Longterm, Active Care Coordination(Confirmed) Social History Social History Type Response Smoking Status Never smoker entered on: 07/16/15 Sex Female
--- OUTSIDE RECORDS SUMMARY | 2022-10-15 14:58 | XMS_ITS | Continuity of Care Document ---
:1980 Author Organization [facility] Address [address] [place] [address]- Care Team Providers Name Role Phone Coleman MANSFIELD, Bill Nolasco Primary Care Physician Encounter [facility] Date(s): 10/07/22 - 10/08/[address] [address]- Encounter Diagnosis Closed fracture of distal lateral malleolus of ankle (Final) - 10/08/22 Discharge Disposition: A-D/C Home Attending Physician: Bernadette Foster MD Admitting Physician: Bernadette Foster MD Referring Physician: Not on Staff, Referring [...] Lot # [id number] exp. 03/19/062Admin Note: [id number] Comment: [02/07/2015] [facility] Medications Acetaminophen Tablet 975 mg, Tablet, By Mouth, Once, STAT, 10/07/22 19:46:00 EST, Stop date 10/07/22 19:46:00 EST Start Date: 10/07/22 Stop Date: 10/07/22 Status: Completedamitriptyline 100 mg oral tablet See Instructions, TAKE 1 TABLET BY MOUTH EVERY DAY AT NIGHT NO FURTHER REFILLS WITHOUT APPT, # 14 tablet, 7 Refills, 09/17/22 14:11:00 EST, [facility]/pharmacy #[id number] Start Date: 09/17/22 Status: OrderedCPAP Machine See Instructions, # 1 each, Maintenance, AutoCPAP 7 to 9 cm of H2O cm H2O, 06/25/16 13:04:35 EDT, Compound Start Date: 06/25/16 Status: OrderedInvega Sustenna 156 mg/mL intramuscular suspension, extended release = 156 mg, Intramuscular, Every 28 days, # 1 each, 2 Refills, Maintenance, 09/29/22 16:32:00 EST, [facility], Partial fill upon patient request if the prescription is for a schedule II opioid drug., 158, cm, 09/29/22 15:10:00 EST, Height Start Date: 09/29/22 Status: Orderedlosartan 25 mg oral tablet See Instructions, TAKE 2 TABLETS BY MOUTH DAILY,NO FURTHER REFILLS WITHOUT MD APPT, # 28 tablet, 0 Refills, 09/17/22 14:10:00 EST, [facility]/pharmacy #[id number] Start Date: 09/17/22 Status: Orderedmetoprolol 25 [...] capsule, 11 Refills, Maintenance, 12/05/19 15:23:00 EDT, [facility]/pharmacy #[id number], 158, cm, 09/02/19 11:30:00 EST, Height, 100.1, kg, 03/07/19 10:56:00 EDT, Dry Weight Start Date: 12/05/19 Stop Date: 11/29/20 Status: OrderedoxyCODONE 5 mg oral tablet 5 mg, Tablet, By Mouth, Once, Routine, 10/08/22 3:00:00 EST, Stop date 10/08/22 3:00:00 EST Start Date: 10/08/22 Stop Date: 10/08/22 Status: CompletedoxyCODONE 5 mg oral tablet 5 mg, 1, tablet, By Mouth, Every 6 hours, PRN, # 12 tablet, Refills 0, Tot. Refills 0, Acute 10/15/22 10:09:00 EST, Pain , Moderate, 10/08/22 10:08:00 EST, Route to Pharmacy Electronically, [facility]/pharmacy #[id number], Partial fill upon patient request if the... 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 Presents with right ankle pain and swelling.; Reason: Trauma; with Pain; Clinical Question(s): Fracture COMPARISON: None. FINDINGS: Transverse fracture of the distal fibula/lateral malleolus. No other acute fracture. Visualized joints are normal. Soft tissue swelling along the lateral ankle. IMPRESSION: Transverse fracture of the distal fibula/lateral malleolus. No proximal tibial/fibular fracture. I have personally reviewed the images and I agree with this report. 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 Presents with right ankle pain and swelling.; Reason: Trauma; with Pain; Clinical Question(s): Fracture COMPARISON: None. FINDINGS: Transverse extra-articular fracture through the distal fibula below the tibiofibular syndesmosis. Noother acute fracture. Medial and posterior malleoli are normal. Os trigonum noted. Intact ankle mortise and talar dome. Small posterior calcaneal bone spur. Moderate soft tissue swelling around the lateral ankle. IMPRESSION: Transverse fracture of the distal fibula below the tibiofibular syndesmosis. A critical result message ([place]) has been communicated via the Kuratur system on 10/07/2022 8:52 PM, Message ID [id number]. I have personally reviewed the images and I agree with this report. WSN: [id number] Ordering Physician: Elmer Sanders MD Dictated By: Susan Armendariz DO Dictated Date/Time: 10/07/22 8:54 pm Reviewed By: Mina Villeda MD Signed By: Mina Villeda MD Signed Date/Time: 10/07/22 8:59 pm Transcribed By: APRIL Transcribed Date/Time: 10/07/22 8:52 pm Vital Signs Most recent to oldest 1 2 3 [Reference Range]: Height 157 cm (10/07/22 7:39 PM) Weight 107.5 kg (10/07/22 7:39 PM) Oxygen Saturation [94-100 %] 98 % 99 % 96 % (10/08/22 2:56 AM) (10/07/22 11:25 PM) (10/07/22 7: 39 PM) Pulse Rate [55-90 bpm] 75 bpm 83 bpm 96 bpm (10/08/22 2:56 AM) (10/07/22 11:25 PM) *H* (10/07/22 7:39 PM ) Blood Pressure [90-138/55-84 117/61 mm Hg 113/73 mm Hg 122 /67 mm Hg mm Hg] (10/08/22 2:56 AM) (10/07/22 11:25 PM) (10/07/22 7: 39 PM) Respiratory Rate [16-30 16 br/min 16 br/min 18 br/mi n br/min] (10/08/22 2:56 AM) (10/08/22 1:44 AM) (10/07/22 8:4 7 PM) Temperature [96.8-100.4 DegF] 98.5 DegF 98.6 DegF (10/07/22 11:25 PM) (10/07/22 7:39 PM) Mode of Delivery (Oxygen) Room air Room air Room a ir (10/08/22 2:56 AM) (10/07/22 11:25 PM) (10/07/22 7: 39 PM) Blood pressure sites Arm, right Arm, left (10/07/22 11:25 PM) (10/07/22 7:39 PM) Temperature Route Oral Oral (10/07/22 11:25 PM) (10/07/22 7:39 PM) Dry Weight 107.5 kg (10/07/22 7:39 PM) Social History Social History Type Response Smoking Status Never smoker entered on: 07/16/15 Sex Female Note Director Varsha MANSFIELD: PERFORM Event Display: Patient Education Leaflets Authored Date: Caring for a Bone Fracture ?? Caring for a Bone Fracture - Video A broken bone, or fracture, is often treated with a sling, elastic bandage, splint, or cast. This video describes these different treatments. To view the video go to this web address: [email or web address] Or, scan this QR code with your smart phone Last Reviewed Date: 2020 ?? [id number] [employer]. All rights reserved. This information is not intended as a substitute for professional medical care. Always follow your healthcare professional's instructions. ??Director Varsha MANSFIELD: PERFORM Event Display: Patient Education Leaflets Authored Date: [id number] Ankle Fracture,??Distal Fibula ?? [id number] Ankle Fracture,??Distal Fibula You have a fracture, or broken bone, of the end of the fibula bone. The fibula is 1 of 2 bones thatsupport the ankle joint. Home care ??? You will be given a splint, cast, or special boot to prevent movement at the injury site. Don't put weight on a splint. It will break. Follow your healthcare provider???s advice about when to begin bearing weight on a cast or boot. ??? Keep your leg raised??when sitting or lying down. When sleeping, place a pillow under the injured leg. When sitting, support the injured leg so it's above heart level. This is very important during the first 48 hours. ??? Keep the cast or splint completely dry at all times. When bathing, protect the cast or splint with??2??large plastic bags. Place 1 bag outside of the other. Tape each??bag with duct tape??at the top end or use rubber bands. Water can still leak in even when the foot is covered. So it's best to keep the cast, splint, or boot away from water.??If a fiberglass cast or splint gets wet, dry it with a co chairman??on a cool setting. ??? Place an ice pack over the injured area for??no more than 15 to??20 minutes. Do this every??3 to 6??hours for the first??24 to 48 hours. Continue this 3 to 4 times a day??as needed. To make an ice pack, put ice cubes in a plastic??bag that seals at the top. Wrap the bag in a??clean, thin??towel or cloth. Never put ice or an ice pack directly on the skin. The ice pack can be put right on the cast or splint. As the ice melts, be careful that the cast or splint doesn???t get wet. ??? You may use??over-the- counter pain medicine??to control pain, unless another pain medicine was prescribed. If you have chronic liver or kidney disease or ever had a stomach ulcer, gastrointestinal bleeding, or take a bloodthinner, talk with your provider before using these medicines. ?? Follow-up care Follow up with your healthcare provider in 1 week, or as advised. This is to be sure the bone is healing properly. If you were given a splint, it may be changed to a cast or boot??after the swelling goes down. If X-rays were taken, you will be told of??any new findings that may affect your care. ?? When to get medical advice Call your healthcare provider right away if any of these occur: ??? The plaster cast or splint becomes wet or soft ??? The fiberglass cast or splint stays wet for more than 24 hours ??? There is increased tightness or pain under the cast or splint ??? Your toes become swollen, cold, blue, numb, or tingly ??? The cast or splint??becomes loose ??? The cast or splint??has a bad smell ??? Sore areas develop under the cast or splint ??? The cast or splint??develops cracks or breaks? Last Reviewed Date: 2021 ?? [id number] [employer]. All rights reserved. This information is not intended as a substitute for professional medical care. Always follow your healthcare professional's instructions. ?? 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 Presents with right ankle pain and swelling.; Reason: Trauma; with Pain; Clinical Question(s): Fracture COMPARISON: None. FINDINGS: Transverse extra-articular fracture through the distal fibula below the tibiofibular syndesmosis. Noother acute fracture. Medial and posterior malleoli are normal. Os trigonum noted. Intact ankle mortise and talar dome. Small posterior calcaneal bone spur. Moderate soft tissue swelling around the lateral ankle. IMPRESSION: Transverse fracture of the distal fibula below the tibiofibular syndesmosis. A critical result message ([place]) has been communicated via the [employer] system on 10/07/2022 8:52 PM, Message ID [id number]. I have personally reviewed the images and I agree with this report. 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 Presents with right ankle pain and swelling.; Reason: Trauma; with Pain; Clinical Question(s): Fracture COMPARISON: None. FINDINGS: Transverse fracture of the distal fibula/lateral malleolus. No other acute fracture. Visualized joints are normal. Soft tissue swelling along the lateral ankle. IMPRESSION: Transverse fracture of the distal fibula/lateral malleolus. No proximal tibial/fibular fracture. I have personally reviewed the images and I agree with this report. WSN: [id number] Ordering Physician: Elmer Sanders MD Dictated By: Susan Armendariz DO Dictated Date/Time: 10/07/22 8:57 pm Reviewed By: Mina Villeda MD Signed By: Mina Villeda MD Signed Date/Time: 10/07/22 9:02 pm Transcribed By: APRIL Transcribed Date/Time: 10/07/22 8:55 pm Patient Care team information Care Team PersonnelName: Bill Cee MD Position: [facility] Resident Member Role: PCP Address: Address: [address] [place] [address]- Name: Director Varsha MANSFIELD Position: [facility] Resident Member Role: ED Resident Address: Address: [address] [place] [address]- Name: Katia Sims Position: [facility] ED TA [facility] Member Role: Patient Care Provider Name: Ever Cervantes RN Position: [facility] ED RN W/OE and Tasks Member Role: Patient Care Provider Name: Bernadette Foster MD Position: [facility] ED Medicine MD Member Role: ED Attending Physician Address: Address: [address] [place] [id number]- Care Team Related PersonsName: BALJINDER PEÑA Address: home [address] [place] [address] Name: ROSANA LAL Address: home [address] [address]
--- NOTE | 2022-10-15 15:00 | PC.NURSE ---
Pt med as ordered. Constantly yelling leave me alone to the voices. Boyfriend states she tried to OD on her meds today.
[2022-10-15] MEDS: HaloperidoL 5 MG TABLET PO (15:02)
[2022-10-15] MEDS: diphenhydrAMINE HCL 25 MG CAPSULE 50 MG PO (15:02)
[2022-10-15] MEDS: LORazepam 1 MG TABLET 2 MG PO (15:02)
[2022-10-15 15:05] LABS: Bacteria Urine 4+ (None Seen); RBC Urine 0-2 /HPF (0-2); UACC Culture Trigger YES; WBC Urine >50 /HPF (0-5)
[2022-10-15 15:50] VITALS: BP 104/61; PULSE 111; RESP 17; TEMP 36.9; O2SAT 96
--- NOTE | 2022-10-15 15:57 | PC.NURSE ---
Pt eating, no longer yelling.
[2022-10-15 16:30] VITALS: BP 99/57; PULSE 110; RESP 17; TEMP 36.9; O2SAT 95
[2022-10-15 16:36] LABS: MANUAL DIFF FLAG NO
[2022-10-15 16:37] LABS: Basophils Percent Auto 0.6 % (0-2); Eosinophils Percent Auto 0.5 % (0-4); Hematocrit 35.6 % (37.0-47.0); Hemoglobin 10.9 g/dl (12.0-16.0); Imm Gran Abs Auto 0.02 X10*3/uL (0.00-0.03); Imm Gran Pct Auto 0.3 % (0.0-0.4); Lymphocytes Absolute Auto 1.3 X10*3/uL (1.2-4.9); Lymphocytes Percent Auto 20.3 % (20-40); Mean Corpuscular HGB Conc 30.6 g/dl (31.0-35.0); Mean Corpuscular Hemoglobin 23.5 pg (27.0-33.0); Mean Corpuscular Volume 76.9 fL (80.0-98.0); Mean Platelet Volume 8.9 fL (9.4-12.3); Monocytes Absolute Auto 0.3 X10*3/uL (0.1-1.2); Monocytes Percent Auto 4.4 % (2-11); Neutrophils Absolute Auto 4.9 x10*3/uL (2.0-8.3); Neutrophils Percent Auto 73.9 % (45-73); Platelet Count 358 X10*3/uL (160-400); Red Blood Count 4.63 X10*6/uL (4.20-5.50); White Blood Count 6.6 X10*3/uL (4.8-10.8)
[2022-10-15 16:54] VITALS: BP 122/78; PULSE 120; RESP 17; TEMP 37.1; O2SAT 97
[2022-10-15 17:04] LABS: Acetaminophen LAB < 17 mcg/mL (<30); Alanine Aminotransferase 12 U/L (0-31); Albumin Level 4.1 g/dL (3.5-5.0); Alkaline Phosphatase 102 U/L (39-117); Anion Gap 14 (12-20); Aspartate Amino Transferase 15 U/L (5-31); Bilirubin Direct < 0.2 mg/dL (0.0-0.5); Bilirubin Total 0.4 mg/dL (0.0-1.0); Blood Urea Nitrogen 11 mg/dL (9-16); Calcium 9.2 mg/dL (8.4-10.2); Carbon Dioxide 26 mmol/L (22-29); Chloride 105 mmol/L (96-108); Creatinine Clr Calc Pharmacy 100.6; Estimated Glomerular Filt Rate > 60; Ethanol < 10 mg/dL; Glucose Random 114 mg/dL (60-115); Potassium 4.2 mmol/L (3.3-5.1); Salicylate < 5.0 mg/dL (15-30); Sodium 141 mmol/L (135-145); Total Protein 6.9 g/dL (6.5-8.0)
[2022-10-15 19:05] LABS: Amphetamine Screen Urine Not Detected (Not Detect); Barbiturates, Urine Not Detected (Not Detect); Benzodiazepines Screen Urine Not Detected (Not Detect); Cannabinoid Screen Urine Not Detected (Not Detect); Cocaine Screen Urine POSITIVE (Not Detect); Fentanyl, urine Not Detected (Not Detect); Opiate Screen Urine Not Detected (Not Detect); Phencyclidine Screen Urine Not Detected (Not Detect)
[2022-10-15 20:41] VITALS: BP 148/88; PULSE 114; RESP 20; TEMP 36.8; O2SAT 95
[2022-10-15] MEDS: Metoprolol Tartrate 25 MG TABLET PO (20:43)
--- NOTE | 2022-10-16 00:22 | PC.NURSE ---
Patient is in bed appears sleeping, compliant with her medication, no distress observed/reported, patient was earlier self dialoguing, + for UTI Ceftin 500 mg BID/initiated, patient was evaluated by care team, disposition is section 12 inpatient bed search, VSS, will continue to monitor.
[2022-10-16 06:52] VITALS: BP 98/62; PULSE 97; RESP 17; O2SAT 96
--- NOTE | 2022-10-16 07:41 | PC.NURSE ---
pt is sleeping resp even and unlabored.
[2022-10-16 09:34] VITALS: BP 110/60; PULSE 99; RESP 17; TEMP 36.3; O2SAT 96
[2022-10-16] MEDS: Metoprolol Tartrate 25 MG TABLET PO ×2 (09:40→21:03)
--- NOTE | 2022-10-16 09:50 | PC.NURSE ---
pt is a/o no sob/vanessa noted speaks in full sentences. pt states + si.
--- NOTE | 2022-10-16 11:36 | ECG_ITS ---
Test Reason : medical clearance Blood Pressure : / mmHG Vent. Rate : 090 BPM Atrial Rate : 090 BPM P-R Int : 128 ms QRS Dur : 080 ms QT Int : 348 ms P-R-T Axes : -09 062 034 degrees QTc Int : 425 ms Normal sinus rhythm Normal ECG No previous ECGs available Referred By: Nile Tran Electronically Signed By:LEEROY MATHUR
--- NOTE | 2022-10-16 11:45 | PC.NURSE ---
pt's called and spoke with the pt.
--- NOTE | 2022-10-16 12:45 | PC.NURSE ---
rn to rn report given to pricilla sandoval aware of plan of care for inpatient bed.
[2022-10-16 14:22] VITALS: BP 112/58; PULSE 98; RESP 16; TEMP 36.6; O2SAT 95
--- NOTE | 2022-10-16 14:41 | MHC.CARE ---
Pt's boyfriend voices concern that pt will lose her fdc bed at [facility] by being admitted to the inpt unit. CARE Team reaches out to [facility]. Pt's bed will be held for two weeks. This information will be passed along to the social work team. [facility] [address] [place] [address] Ext. [address]
--- NOTE | 2022-10-16 14:54 | MHC.CARE ---
Call to [facility] insurance, patient was unenrolled in August and will be active again 10/22/22. According to insurance verification/eligibility website, patient does have [employer] and Medicare.
[2022-10-16 15:00] VITALS: BP 122/82; PULSE 112; RESP 18; TEMP 36.8; O2SAT 96
--- NOTE | 2022-10-16 15:42 | PC.NURSE ---
Pt arrived on m3 with one $20.00 bill. POD belongings sheet lists $253.00. I spoke with Moe and Kevyn in the pod regarding missing money. Kelsy Castañeda informed.
[2022-10-16] MEDS: LORazepam 1 MG TABLET 2 MG PO (16:31)
[2022-10-16] MEDS: Paliperidone ER 6 MG TAB.ER.24 PO (16:31)
--- NOTE | 2022-10-16 16:31 | HO.PSYADMNOT ---
HPI Date of Service: 10/16/22 Chief Complaint: Psychosis Sources of Information: patient interviewed, chart reviewed and crisis/core team assessment reviewed HPI Subjective Notes: Chavira Warning (given and shows understanding) and Conditional Voluntary Narrative: Ms. 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 In the ED, utox positive for cocaine. On the unit, pt present as anxious and restless. She reports hearing voices telling her that she will be killed, and derogatory statements. She reports voices on and off for some months. She was on POPE of invega sustenna with good effect. She reports suicidal ideation but denies any plan to harm herself while on the unit. She reports poor sleep and appetite. Past Psychiatric History: Inpt: [facility] 2022 OP: none Past medication trials; paliperidone. Medical Evaluation Reviewed: Yes [facility] Medical History (Updated 10/17/22 @ 20:33 by Claudine Matthews) Fibromyalgia Hypertension IBS (irritable bowel syndrome) Suicide attempt Family History: denies Social History: currently homeless. Substance History: cocaine on and off for years Trauma History: not disclosed Diagnostics Vital Signs (24Hr): Vital Signs - 24 hr 10/15/22 16:54 10/15/22 20:41 10/16/22 06:52 Temperature 98.7 F 98.3 F Pulse Rate 120 H 114 H 97 Respiratory Rate 17 20 17 Blood Pressure 122/78 148/88 H 98/62 Pulse Oximetry 97 95 96 Oxygen Delivery Method Room Air Room Air Room Air 10/16/22 09:34 10/16/22 14:22 Temperature 97.3 F 97.9 F Pulse Rate 99 98 Respiratory Rate 17 16 Blood Pressure 110/60 112/58 L Pulse Oximetry 96 95 Oxygen Delivery Method Room Air Room Air BMI result Body Mass Index 40.5 Labs 10/15/22 16:30 10/15/22 16:30 Labs: Laboratory Results - last 48 hr 10/15/22 10/15/22 10/15/22 01:31 14:14 14:14 WBC RBC Hgb Hct MCV MCH MCHC RDW Plt Count MPV Immature Gran % (Auto) Neut % (Auto) Lymph % (Auto) Kings % (Auto) Eos % (Auto) Baso % (Auto) Lymph # (Auto) Kings # (Auto) Eos # (Auto) Baso # (Auto) Abs Immat Gran (auto) Absolute Neuts (auto) Absolute Nucleated RBC Nucleated RBC % (auto) Sodium Potassium Chloride Carbon Dioxide Anion Gap BUN Creatinine Estim Creat Clear Calc Estimated GFR Random Glucose Calcium Magnesium Total Bilirubin Direct Bilirubin AST ALT Alkaline Phosphatase Total Protein Albumin Urine Color Yellow Urine Appearance Turbid Urine pH 5.5 Ur Specific [place] 1.020 Urine Protein Negative Urine Glucose (UA) Negative Urine Ketones 15 Urine Blood Trace H Urine Nitrite Positive H Ur Leukocyte Esterase Large (3+) H Urine RBC 0-2 Urine WBC >50 H Ur Squamous Epith Cells 11-20 Urine Bacteria 4+ Hyaline Casts 11-20 Urine Test NEGATIVE Salicylates Urine Opiates Screen Urine Fentanyl Screen Acetaminophen Ur Barbiturates Screen Ur Phencyclidine Scrn Ur Amphetamines Screen U Benzodiazepines Scrn Urine Cocaine Screen U Marijuana (THC) Screen Ethyl Alcohol COVID-19 (CELINE) Negative COVID-19 Clin Com See Note 10/15/22 10/15/22 10/15/22 14:14 16:30 16:30 WBC 6.6 RBC 4.63 Hgb 10.9 L Hct 35.6 L MCV 76.9 L MCH 23.5 L MCHC 30.6 L RDW 15.0 Plt Count 358 MPV 8.9 L Immature Gran % (Auto) 0.3 Neut % (Auto) 73.9 H Lymph % (Auto) 20.3 Kings % (Auto) 4.4 Eos % (Auto) 0.5 Baso % (Auto) 0.6 Lymph # (Auto) 1.3 Kings # (Auto) 0.3 Eos # (Auto) 0.0 Baso # (Auto) 0.0 Abs Immat Gran (auto) 0.02 Absolute Neuts (auto) 4.9 Absolute Nucleated RBC 0.000 Nucleated RBC % (auto) 0.0 Sodium 141 Potassium 4.2 Chloride 105 Carbon Dioxide 26 Anion Gap 14 BUN 11 Creatinine 0.87 Estim Creat Clear Calc 100.6 Estimated GFR > 60 Random Glucose 114 Calcium 9.2 D Magnesium 2.0 Total Bilirubin 0.4 Direct Bilirubin < 0.2 AST 15 ALT 12 Alkaline Phosphatase 102 Total Protein 6.9 Albumin 4.1 Urine Color Urine Appearance Urine pH Ur Specific [place] Urine Protein Urine Glucose (UA) Urine Ketones Urine Blood Urine Nitrite Ur Leukocyte Esterase Urine RBC Urine WBC Ur Squamous Epith Cells Urine Bacteria Hyaline Casts Urine Test Salicylates < 5.0 L Urine Opiates Screen Not Detected Urine Fentanyl Screen Not Detected Acetaminophen < 17 Ur Barbiturates Screen Not Detected Ur Phencyclidine Scrn Not Detected Ur Amphetamines Screen Not Detected U Benzodiazepines Scrn Not Detected Urine Cocaine Screen POSITIVE H U Marijuana (THC) Screen Not Detected Ethyl Alcohol < 10 COVID-19 (CELINE) COVID-19 Clin Com Meds/Allergies Meds Home Medications Medication Instructions Recorded Confirmed Type metoprolol tartrate 25 mg tablet 1 tab PO BID 10/15/22 10/16/22 History amitriptyline 100 mg tablet 100 mg PO BEDTIME 10/16/22 10/16/22 History losartan 25 mg tablet 50 mg PO DAILY 10/16/22 10/16/22 History omeprazole 20 mg capsule,delayed 1 cap PO BID 10/16/22 10/16/22 History release paliperidone palmitate 156 mg/mL 156 mg IM Q30D 10/16/22 10/16/22 History intramuscular syringe (Invega Sustenna) Allergies Allergies Allergy/AdvReac Type Severity Reaction Status Date / Time oxaprozin [From Daypro] Allergy Rash Verified 10/15/22 13:34 Sulfa (Sulfonamide Allergy Rash Verified 10/15/22 13:33 Antibiotics) tramadol [From Ultram] Allergy Rash Verified 10/15/22 13:34 Mental Status Exam Mental Status Exam Narrative: Appearance: wearing hospital gown, in NAD Behavior: cooperative Speech: clear, normal rate/rhythm, spontaneous Psychomotor: slight agitation TP: linear TC: hearing voices, distressed feeling anxious Mood: anxious Affect: congruent SI: passive HI: none VH/AH: hearing voices Delusions: no overt delusional content Insight/judgment: fair x 2. Memory/cog: alert, oriented x 3. grossly intact to conversational testing. Assessment & Plan Assessment & Plan (1) Psychosis: Status: Acute Code(s): F29 - Unspecified psychosis not due to a substance or known physiological condition Plan Ms. Murillo is 42 year-old woman with hx of cocaine use, psychosis in past 2-3 months who self presented to [facility] ED reporting increased depression AH and suicidal ideation with plan to OD or cut wrist. Utox positive for cocaine. We discussed risks, benefits and alternative treatment options. We discussed risks benefits and alternative treatment options. Pt agrees to restart paliperidone 6mg po daily, ativan prn for anxiety, prn olanzapine for agitation. PLAN 1. admit to m3, cv, 15 minutes checks for safety 2. start paliperidone 6mg po daily 3. obtain collateral information 4. aftercare planning. Patient educated on: diagnosis and substance abuse Reason for continued inpatient stay Substantial Risk for: harm to self and inability to function Statement Statement: I have reviewed the history and physical and performed a pertinent examination on my patient. No changes have occurred unless specified. If the History and Physical was not performed prior to admission, the Hospitalist's service will be consulted for completing the admission physical. Time Spent With Patient Time: Total time managing care of this patient today ____ minutes.
--- NOTE | 2022-10-16 18:05 | PC.NURSE ---
Thelma was admitted to M3 at 1445 from [facility] on CV for treatment of psychosis and suicidality Patient reports she never heard voices before a few weeks ago She began hearing derogatory voices ( denies command content.) She reports she could not stand the voices and so overdosed on her metoprolol in an attempt to end her life. She reports she tripped on a rock and fell at that time. She reports being taken to [facility] via ambulance, treated for her OD and reported fractured ankle and then released from ED. She reports a recent IPLOC on the [facility] psych unit where she was started on Invega sustenna but says she did not take this med after discharge. SHe reports just prior to presenting at [facility] ED she again overdosed on metoprolol. Vital signs are stable in pod and on arrival to . Patient is alert, disoriented to date and struggled to participate in admission assessment due to distraction by internal stimuli. Mood is depressed. Affect is sad, and anxious. Pt confirms AH but denies VH, or other hallucinations. She did not voice any paranoid or delusional thought content Thought Process is disorganized She denies current ideation, plan or intent to harm self or others. She denies loss of appetite and declined assessment of weight. Sleep is reportedly disrupted by voices so she has trouble falling and staying asleep. Thelma denies drug use of any kind but tx screen was positive for cocaine. Medical Issues?include current UTI - on ceftin, current right ankle fracture per pt, ( ortho consult pending), hypertension, tachycardia, frequent headaches and poor dentition. Thelma is placed on q 15 minute Safety Checks
[2022-10-16 21:00] VITALS: BP 130/86; PULSE 106; RESP 18; O2SAT 97
[2022-10-16] MEDS: hydrOXYzine HCL 25 MG TABLET PO (21:03)
[2022-10-16] MEDS: LORazepam 1 MG TABLET PO (21:29)
[2022-10-17 06:00] VITALS: BP 136/82; PULSE 106; RESP 16; O2SAT 94
[2022-10-17] MEDS: Paliperidone ER 6 MG TAB.ER.24 PO (09:05)
[2022-10-17] MEDS: Metoprolol Tartrate 25 MG TABLET PO ×2 (09:05→20:13)
--- NOTE | 2022-10-17 09:11 | PM.EVENT ---
Event Note Date of Service: 10/17/22 Event Note: X-rays obtained of the right ankle reviewed and significant for right distal fibular fx Recommendations: -Tall boot -WBAT -R/I/C/E -F/u with ortho outpatient after discharge Time Spent With Patient Time: Total time managing care of this patient today ____ minutes.
[2022-10-17 10:10] LABS: Alanine Aminotransferase 10 U/L (0-31); Albumin Level 3.9 g/dL (3.5-5.0); Alkaline Phosphatase 92 U/L (39-117); Anion Gap 14 (12-20); Aspartate Amino Transferase 16 U/L (5-31); Bilirubin Total 0.4 mg/dL (0.0-1.0); Blood Urea Nitrogen 15 mg/dL (9-16); Calcium 9.2 mg/dL (8.4-10.2); Carbon Dioxide 24 mmol/L (22-29); Chloride 106 mmol/L (96-108); Cholesterol 195 mg/dL; Creatinine Clr Calc Pharmacy 109.3; Estimated Glomerular Filt Rate > 60; Glucose Fasting 105 mg/dL (60-99); HDL Cholesterol 37 mg/dL; LDL Cholesterol Calculated 136 mg/dl; Potassium 4.8 mmol/L (3.3-5.1); Sodium 139 mmol/L (135-145); Total Protein 6.6 g/dL (6.5-8.0); Triglycerides 114 mg/dL
[2022-10-17 10:35] LABS: Thyroid Stimulating Hormone 0.44 uIU/mL (0.32-4.0); Vitamin B12 264 pg/mL (200-900)
[2022-10-17 11:07] LABS: Estimated Average Glucose 126 mg/dL
--- NOTE | 2022-10-17 12:36 | HO.PSYCHPN ---
Subjective Subjective Date of Service: 10/17/22 Reason For Visit: Psychosis Subjective Notes: Conditional Voluntary Interim History: Pt reports sleeping better. she reports less voices but still hears then and feels anxious about it. She reports she has been walking with fracture ankle with boot but has some pain. She denies SI/HI. She was naheed to take a shower and hygiene appears improved. Medication Compliance: Yes Review of Systems Acute medical concerns: No Review of Systems Review of Systems Yes Unobtainable due to mental condition Mental Status Exam Mental Status Exam Narrative: Appearance: wearing hospital gown, in NAD Behavior: cooperative Speech: clear, normal rate/rhythm, spontaneous Psychomotor: slight agitation TP: linear TC: hearing voices, distressed feeling anxious Mood: anxious Affect: congruent SI: passive HI: none VH/AH: hearing voices Delusions: no overt delusional content Insight/judgment: fair x 2. Memory/cog: alert, oriented x 3. grossly intact to conversational testing. Diagnostics Vital Signs (24Hr): Vital Signs - 24 hr 10/16/22 21:00 10/17/22 06:00 10/17/22 20:07 Temperature 97.8 F Pulse Rate 106 H 106 H 107 H Respiratory Rate 18 16 18 Blood Pressure 130/86 136/82 114/64 Pulse Oximetry 97 94 95 Oxygen Delivery Method Room Air Room Air Room Air BMI result Body Mass Index 40.5 Labs 10/15/22 16:30 10/17/22 09:16 Labs: Laboratory Results - last 48 hr 10/17/22 10/17/22 09:16 09:16 Sodium 139 Potassium 4.8 Chloride 106 Carbon Dioxide 24 Anion Gap 14 BUN 15 Creatinine 0.80 Estim Creat Clear Calc 109.3 Estimated GFR > 60 Fasting Glucose 105 H Estimat Average Glucose 126 Hemoglobin A1c % 6.0 Calcium 9.2 Total Bilirubin 0.4 AST 16 ALT 10 Alkaline Phosphatase 92 Total Protein 6.6 Albumin 3.9 Triglycerides 114 Cholesterol 195 LDL Cholesterol, Calc 136 HDL Cholesterol 37 Vitamin B12 264 Folate 8.0 TSH 0.44 Imaging Radiology Impressions: ITS Impressions Ankle X-Ray 10/17/22 08:12 IMPRESSION: Mildly displaced transversely oriented distal fibular fracture, compatible with a supination-abduction inversion injury. Medications Medications Current Medications Acetaminophen (Acetaminophen 325 Mg Tablet) 650 mg PO Q6H PRN PRN Reason: Headache/Pain Mild Scale (1-3) Last Admin: 10/17/22 20:16 Dose: 650 mg Al Hydroxide/Mg Hydroxide (Magnesium Hydrox/Alum Hydrox 30 Ml Oral.Susp) 30 ml PO Q6H PRN PRN Reason: Heartburn/Nausea Cefuroxime Axetil (Cefuroxime Axetil 500 Mg Tablet) 500 mg PO BID COUNTS INCLUDE 234 BEDS AT THE [facility] Last Admin: 10/17/22 20:13 Dose: 500 mg Hydroxyzine HCl (Hydroxyzine Hcl 25 Mg Tablet) 25 mg PO Q6H PRN PRN Reason: Anxiety Last Admin: 10/16/22 21:03 Dose: 25 mg Lorazepam (Lorazepam 1 Mg Tablet) 1 mg PO Q4H PRN PRN Reason: agitation/anxiety Last Admin: 10/17/22 20:13 Dose: 1 mg Magnesium Hydroxide (Milk Of Magnesia 30 Ml Oral.Susp) 30 ml PO DAILY PRN PRN Reason: Constipation Metoprolol Tartrate (Metoprolol Tartrate 25 Mg Tablet) 25 mg PO BID COUNTS INCLUDE 234 BEDS AT THE [facility]; Protocol Last Admin: 10/17/22 20:13 Dose: 25 mg Olanzapine (Olanzapine Odt 10 Mg Tab.Rapdis) 10 mg TRANSLINGU Q6H PRN PRN Reason: agitation Last Admin: 10/17/22 20:13 Dose: 10 mg Paliperidone (Paliperidone Er 6 Mg Tab.Er.24) 6 mg PO DAILY COUNTS INCLUDE 234 BEDS AT THE [facility] Last Admin: 10/17/22 09:05 Dose: 6 mg Trazodone HCl (Trazodone Hcl 50 Mg Tablet) 50 mg PO BEDTIME PRN PRN Reason: Insomnia Allergies Allergies Allergy/AdvReac Type Severity Reaction Status Date / Time oxaprozin [From Daypro] Allergy Rash Verified 10/15/22 13:34 Sulfa (Sulfonamide Allergy Rash Verified 10/15/22 13:33 Antibiotics) tramadol [From Ultram] Allergy Rash Verified 10/15/22 13:34 Assessment & Plan Assessment & Plan (1) Psychosis: Status: Acute Code(s): F29 - Unspecified psychosis not due to a substance or known physiological condition Plan Ms. Murillo is 42 year-old woman with hx of cocaine use, psychosis in past 2-3 months who self presented to [facility] ED reporting increased depression AH and suicidal ideation with plan to OD or cut wrist. Utox positive for cocaine. We discussed risks, benefits and alternative treatment options. We discussed risks benefits and alternative treatment options. Pt agrees to restart paliperidone 6mg po daily, ativan prn for anxiety, prn olanzapine for agitation. PLAN 1. admit to m3, cv, 15 minutes checks for safety 2. start paliperidone 6mg po daily 3. obtain collateral information 4. aftercare planning. 10/17 continue tx. Reason for contiued inpatient stay Substantial Risk for: harm to self and inability to function Time Spent With Patient Time: Total time managing care of this patient today ____ minutes.
[2022-10-17] MEDS: OLANZapine ODT 10 MG TAB.RAPDIS TRANSLINGU ×2 (12:45→20:13)
[2022-10-17] MEDS: LORazepam 1 MG TABLET PO ×2 (12:45→20:13)
[2022-10-17] MEDS: Acetaminophen 325 MG TABLET 650 MG PO ×2 (12:45→20:16)
--- NOTE | 2022-10-17 13:01 | MHC.CLN ---
NUTRITION CONSULT FOR POOR DENTITION. VISITED WITH PATIENT IN HER ROOM. REPORTS THAT HAS NO TEETH AND EATS WELL WITH NO PROBLEMS. THIS NITRATE OPERATOR ASKED IF SHE EATS SOFTER FOODS, AND STATED THAT DOES NOT. NO NEW NUTRITION INTERVENTIONS AT THIS TIME.
[2022-10-17 20:07] VITALS: BP 114/64; PULSE 107; RESP 18; TEMP 36.6; O2SAT 95
[2022-10-18 08:00] VITALS: BP 106/63; PULSE 86; RESP 18; TEMP 36.6; O2SAT 96
[2022-10-18] MEDS: LORazepam 1 MG TABLET PO ×3 (09:23→19:02)
[2022-10-18] MEDS: Metoprolol Tartrate 25 MG TABLET PO ×2 (09:23→20:40)
[2022-10-18] MEDS: Paliperidone ER 6 MG TAB.ER.24 PO (09:24)
[2022-10-18] MEDS: OLANZapine ODT 10 MG TAB.RAPDIS TRANSLINGU ×2 (10:55→19:02)
[2022-10-18] MEDS: Acetaminophen 325 MG TABLET 650 MG PO ×2 (16:00→22:02)
[2022-10-18 20:40] VITALS: BP 120/66; PULSE 100; RESP 18; TEMP 36.4; O2SAT 97
[2022-10-18] MEDS: traZODone HCL 100 MG TABLET PO (20:41)
[2022-10-18] MEDS: traZODone HCL 50 MG TABLET PO (22:02)
--- NOTE | 2022-10-18 22:28 | HO.PSYCHPN ---
Subjective Subjective Date of Service: 10/18/22 Reason For Visit: Psychosis Interim History: asking for help with voices in my head, and sleep. asked to be patient re AH as she just started medication. agrees to trial of trazodone for sleep, starting at 100 tonight. per staff, anx 8, dep 4. +AH, inscrutable. occasional shouting in response to AH. c/o right foot pain (has foot Fx, wears a boot). ceftin for UTI. Mental Status Exam Mental Status Exam Narrative: Appearance: wearing hospital gown, in NAD Behavior: cooperative Speech: clear, normal rate/rhythm, spontaneous Psychomotor: slight agitation TP: linear TC: hearing voices, distressed feeling anxious Mood: anxious Affect: congruent SI: passive HI: none VH/AH: hearing voices Delusions: no overt delusional content Insight/judgment: fair x 2. Memory/cog: alert, oriented x 3. grossly intact to conversational testing. Diagnostics Vital Signs (24Hr): Vital Signs - 24 hr 10/18/22 08:00 10/18/22 20:40 Temperature 97.9 F 97.6 F Pulse Rate 86 100 Respiratory Rate 18 18 Blood Pressure 106/63 120/66 Pulse Oximetry 96 97 Oxygen Delivery Method Room Air Room Air BMI result Body Mass Index 40.5 Labs 10/15/22 16:30 10/17/22 09:16 Labs: Laboratory Results - last 48 hr 10/17/22 10/17/22 09:16 09:16 Sodium 139 Potassium 4.8 Chloride 106 Carbon Dioxide 24 Anion Gap 14 BUN 15 Creatinine 0.80 Estim Creat Clear Calc 109.3 Estimated GFR > 60 Fasting Glucose 105 H Estimat Average Glucose 126 Hemoglobin A1c % 6.0 Calcium 9.2 Total Bilirubin 0.4 AST 16 ALT 10 Alkaline Phosphatase 92 Total Protein 6.6 Albumin 3.9 Triglycerides 114 Cholesterol 195 LDL Cholesterol, Calc 136 HDL Cholesterol 37 Vitamin B12 264 Folate 8.0 TSH 0.44 Imaging Radiology Impressions: ITS Impressions Ankle X-Ray 10/17/22 08:12 IMPRESSION: Mildly displaced transversely oriented distal fibular fracture, compatible with a supination-abduction inversion injury. Medications Medications Current Medications Acetaminophen (Acetaminophen 325 Mg Tablet) 650 mg PO Q6H PRN PRN Reason: Headache/Pain Mild Scale (1-3) Last Admin: 10/18/22 22:02 Dose: 650 mg Al Hydroxide/Mg Hydroxide (Magnesium Hydrox/Alum Hydrox 30 Ml Oral.Susp) 30 ml PO Q6H PRN PRN Reason: Heartburn/Nausea Cefuroxime Axetil (Cefuroxime Axetil 500 Mg Tablet) 500 mg PO BID [facility] Last Admin: 10/18/22 20:41 Dose: 500 mg Hydroxyzine HCl (Hydroxyzine Hcl 25 Mg Tablet) 25 mg PO Q6H PRN PRN Reason: Anxiety Last Admin: 10/16/22 21:03 Dose: 25 mg Lorazepam (Lorazepam 1 Mg Tablet) 1 mg PO Q4H PRN PRN Reason: agitation/anxiety Last Admin: 10/18/22 19:02 Dose: 1 mg Magnesium Hydroxide (Milk Of Magnesia 30 Ml Oral.Susp) 30 ml PO DAILY PRN PRN Reason: Constipation Metoprolol Tartrate (Metoprolol Tartrate 25 Mg Tablet) 25 mg PO BID [facility]; Protocol Last Admin: 10/18/22 20:40 Dose: 25 mg Olanzapine (Olanzapine Odt 10 Mg Tab.Rapdis) 10 mg TRANSLINGU Q6H PRN PRN Reason: agitation Last Admin: 10/18/22 19:02 Dose: 10 mg Paliperidone (Paliperidone Er 6 Mg Tab.Er.24) 6 mg PO DAILY [facility] Last Admin: 10/18/22 09:24 Dose: 6 mg Trazodone HCl (Trazodone Hcl 50 Mg Tablet) 50 mg PO BEDTIME PRN PRN Reason: Insomnia Last Admin: 10/18/22 22:02 Dose: 50 mg Trazodone HCl (Trazodone Hcl 100 Mg Tablet) 100 mg PO BEDTIME [facility] Last Admin: 10/18/22 20:41 Dose: 100 mg Allergies Allergies Allergy/AdvReac Type Severity Reaction Status Date / Time oxaprozin [From Daypro] Allergy Rash Verified 10/15/22 13:34 Sulfa (Sulfonamide Allergy Rash Verified 10/15/22 13:33 Antibiotics) tramadol [From Ultram] Allergy Rash Verified 10/15/22 13:34 Assessment & Plan Assessment & Plan (1) Psychosis: Status: Acute Code(s): F29 - Unspecified psychosis not due to a substance or known physiological condition Plan Ms. Murillo is 42 year-old woman with hx of cocaine use, psychosis in past 2-3 months who self presented to [facility] reporting increased depression AH and suicidal ideation with plan to OD or cut wrist. Utox positive for cocaine. We discussed risks, benefits and alternative treatment options. We discussed risks benefits and alternative treatment options. Pt agrees to restart paliperidone 6mg po daily, ativan prn for anxiety, prn olanzapine for agitation. PLAN 1. admit to m3, cv, 15 minutes checks for safety 2. start paliperidone 6mg po daily 3. obtain collateral information 4. aftercare planning. 10/17 continue tx. 10/18: start trazodone 100 for sleep. otherwise continnue current mgmt. Reason for contiued inpatient stay Substantial Risk for: inability to function and rapid decompensation Time Spent With Patient Time: Total time managing care of this patient today __15__ minutes.
[2022-10-19 08:00] VITALS: BP 115/62; PULSE 103; RESP 18; TEMP 36.7; O2SAT 97
[2022-10-19] MEDS: Metoprolol Tartrate 25 MG TABLET PO ×2 (08:33→20:32)
[2022-10-19] MEDS: OLANZapine ODT 10 MG TAB.RAPDIS TRANSLINGU ×3 (08:33→20:32)
[2022-10-19] MEDS: Paliperidone ER 6 MG TAB.ER.24 PO (08:34)
[2022-10-19] MEDS: LORazepam 1 MG TABLET PO ×2 (10:51→17:47)
[2022-10-19] MEDS: Acetaminophen 325 MG TABLET 650 MG PO (13:49)
--- NOTE | 2022-10-19 14:02 | PC.NURSE ---
Thelma in milieu area sitting at a table calling out don't hurt my dog i asked her what she meant and she said the voices are saying that they're gonna hurt my dog Rosalia Zyprexa given .
--- NOTE | 2022-10-19 17:12 | P.PNPSI_ITS ---
Subjective Subjective Date of Service: 10/19/22 Reason For Visit: Psychosis Interim History: reports AH remain but are improving. slept better but not well. trazodone increased to 150 at pt request. per staff, pleasant. anx 6. +RIS. CAH to not eat, but eating about 80% of meals. taking meds. responsive, polite. appears to sleep well. Mental Status Exam Mental Status Exam Narrative: Appearance: wearing hospital gown, in NAD Behavior: cooperative Speech: clear, normal rate/rhythm, spontaneous Psychomotor: slight agitation TP: linear TC: hearing voices, distressed feeling anxious Mood: anxious Affect: congruent SI: passive HI: none VH/AH: hearing voices Delusions: no overt delusional content Insight/judgment: fair x 2. Memory/cog: alert, oriented x 3. grossly intact to conversational testing. Diagnostics Vital Signs (24Hr): Vital Signs - 24 hr 10/18/22 20:40 10/19/22 08:00 Temperature 97.6 F 98.0 F Pulse Rate 100 103 H Respiratory Rate 18 18 Blood Pressure 120/66 115/62 Pulse Oximetry 97 97 Oxygen Delivery Method Room Air Room Air BMI result Body Mass Index 40.5 Labs 10/15/22 16:30 10/17/22 09:16 Imaging Radiology Impressions: ITS Impressions Ankle X-Ray 10/17/22 08:12 IMPRESSION: Mildly displaced transversely oriented distal fibular fracture, compatible with a supination-abduction inversion injury. Medications Medications Current Medications Acetaminophen (Acetaminophen 325 Mg Tablet) 650 mg PO Q6H PRN PRN Reason: Headache/Pain Mild Scale (1-3) Last Admin: 10/19/22 13:49 Dose: 650 mg Al Hydroxide/Mg Hydroxide (Magnesium Hydrox/Alum Hydrox 30 Ml Oral.Susp) 30 ml PO Q6H PRN PRN Reason: Heartburn/Nausea Cefuroxime Axetil (Cefuroxime Axetil 500 Mg Tablet) 500 mg PO BID [facility] Last Admin: 10/19/22 08:34 Dose: 500 mg Hydroxyzine HCl (Hydroxyzine Hcl 25 Mg Tablet) 25 mg PO Q6H PRN PRN Reason: Anxiety Last Admin: 10/16/22 21:03 Dose: 25 mg Lorazepam (Lorazepam 1 Mg Tablet) 1 mg PO Q4H PRN PRN Reason: agitation/anxiety Last Admin: 10/19/22 10:51 Dose: 1 mg Magnesium Hydroxide (Milk Of Magnesia 30 Ml Oral.Susp) 30 ml PO DAILY PRN PRN Reason: Constipation Metoprolol Tartrate (Metoprolol Tartrate 25 Mg Tablet) 25 mg PO BID [facility]; Protocol Last Admin: 10/19/22 08:33 Dose: 25 mg Olanzapine (Olanzapine Odt 10 Mg Tab.Rapdis) 10 mg TRANSLINGU Q6H PRN PRN Reason: agitation Last Admin: 10/19/22 13:52 Dose: 10 mg Paliperidone (Paliperidone Er 6 Mg Tab.Er.24) 6 mg PO DAILY [facility] Last Admin: 10/19/22 08:34 Dose: 6 mg Trazodone HCl (Trazodone Hcl 50 Mg Tablet) 50 mg PO BEDTIME PRN PRN Reason: Insomnia Last Admin: 10/18/22 22:02 Dose: 50 mg Trazodone HCl (Trazodone Hcl 50 Mg Tablet) 150 mg PO BEDTIME [facility] Allergies Allergies Allergy/AdvReac Type Severity Reaction Status Date / Time oxaprozin [From Daypro] Allergy Rash Verified 10/15/22 13:34 Sulfa (Sulfonamide Allergy Rash Verified 10/15/22 13:33 Antibiotics) tramadol [From Ultram] Allergy Rash Verified 10/15/22 13:34 Assessment & Plan Assessment & Plan (1) Psychosis: Status: Acute Code(s): F29 - Unspecified psychosis not due to a substance or known physiological condition Plan Ms. Murillo is 42 year-old woman with hx of cocaine use, psychosis in past 2-3 months who self [place] [facility] [place] reporting increased depression AH and suicidal ideation with plan to OD or cut wrist. Utox positive for cocaine. We discussed risks, benefits and alternative treatment options. We discussed risks benefits and alternative treatment options. Pt agrees to restart paliperidone 6mg po daily, ativan prn for anxiety, prn olanzapine for agitation. PLAN 1. admit to m3, cv, 15 minutes checks for safety 2. start paliperidone 6mg po daily 3. obtain collateral information 4. aftercare planning. 10/17 continue tx. 10/18: start trazodone 100 for sleep. otherwise continue current mgmt. 10/19: increase trazodone 100 for sleep to 150 as of tonight. AH improving, sleep improving. otherwise continue current mgmt. Reason for contiued inpatient stay Substantial Risk for: inability to function and rapid decompensation Time Spent With Patient Time: Total time managing care of this patient today ____ minutes.
[2022-10-19 20:30] VITALS: BP 103/55; PULSE 107; RESP 18; TEMP 36.6; O2SAT 96
[2022-10-19] MEDS: traZODone HCL 50 MG TABLET 150 MG PO (20:32)
[2022-10-20] MEDS: Metoprolol Tartrate 25 MG TABLET PO ×2 (09:16→21:09)
[2022-10-20] MEDS: Paliperidone ER 6 MG TAB.ER.24 PO (09:16)
[2022-10-20 09:17] VITALS: BP 126/64; PULSE 118; RESP 20; TEMP 36.4; O2SAT 96
[2022-10-20] MEDS: LORazepam 1 MG TABLET PO ×2 (10:26→16:59)
[2022-10-20] MEDS: OLANZapine ODT 10 MG TAB.RAPDIS TRANSLINGU ×2 (10:27→17:00)
[2022-10-20] MEDS: Acetaminophen 325 MG TABLET 650 MG PO ×2 (10:59→18:57)
--- NOTE | 2022-10-20 13:41 | P.PNPSI_ITS ---
Subjective Subjective Date of Service: 10/20/22 Reason For Visit: Psychosis Interim History: sleeping at table in milieu. feels she is doing a little better. AH are bothering me but coming down. reports sleeping well, declines any change to sleep regimen. per staff, 3-day up 10/22. pleasant. anx 8. periodically yelling out to AH, stop bothering me! CAH not to eat, but is eating well. med-compliant, eating well. slept through the night. antibx DCed today as they have been given for 5 days, the appropriate length for UTI. Mental Status Exam Mental Status Exam Narrative: Appearance: wearing hospital gown, in NAD Behavior: cooperative Speech: clear, normal rate/rhythm, spontaneous Psychomotor: slight agitation TP: linear TC: hearing voices, distressed feeling anxious Mood: a little better Affect: congruent SI: none voiced HI: none voiced VH/AH: hearing voices Delusions: no overt delusional content Insight/judgment: fair x 2. Memory/cog: alert, oriented x 3. grossly intact to conversational testing. Diagnostics Vital Signs (24Hr): Vital Signs - 24 hr 10/19/22 20:30 10/20/22 09:17 Temperature 97.9 F 97.6 F Pulse Rate 107 H 118 H Respiratory Rate 18 20 Blood Pressure 103/55 L 126/64 Pulse Oximetry 96 96 Oxygen Delivery Method Room Air Room Air BMI result Body Mass Index 40.5 Labs 10/15/22 16:30 10/17/22 09:16 Imaging Radiology Impressions: ITS Impressions Ankle X-Ray 10/17/22 08:12 IMPRESSION: Mildly displaced transversely oriented distal fibular fracture, compatible with a supination-abduction inversion injury. Medications Medications Current Medications Acetaminophen (Acetaminophen 325 Mg Tablet) 650 mg PO Q4H PRN PRN Reason: Headache/Pain Mild Scale (1-3) Al Hydroxide/Mg Hydroxide (Magnesium Hydrox/Alum Hydrox 30 Ml Oral.Susp) 30 ml PO Q6H PRN PRN Reason: Heartburn/Nausea Cefuroxime Axetil (Cefuroxime Axetil 500 Mg Tablet) 500 mg PO BID [facility] Last Admin: 10/20/22 09:16 Dose: 500 mg Hydroxyzine HCl (Hydroxyzine Hcl 25 Mg Tablet) 25 mg PO Q6H PRN PRN Reason: Anxiety Last Admin: 10/16/22 21:03 Dose: 25 mg Lorazepam (Lorazepam 1 Mg Tablet) 1 mg PO Q4H PRN PRN Reason: agitation/anxiety Last Admin: 10/20/22 10:26 Dose: 1 mg Magnesium Hydroxide (Milk Of Magnesia 30 Ml Oral.Susp) 30 ml PO DAILY PRN PRN Reason: Constipation Metoprolol Tartrate (Metoprolol Tartrate 25 Mg Tablet) 25 mg PO BID [facility]; Protocol Last Admin: 10/20/22 09:16 Dose: 25 mg Olanzapine (Olanzapine Odt 10 Mg Tab.Rapdis) 10 mg TRANSLINGU Q6H PRN PRN Reason: agitation Last Admin: 10/20/22 10:27 Dose: 10 mg Paliperidone (Paliperidone Er 6 Mg Tab.Er.24) 6 mg PO DAILY [facility] Last Admin: 10/20/22 09:16 Dose: 6 mg Trazodone HCl (Trazodone Hcl 50 Mg Tablet) 50 mg PO BEDTIME PRN PRN Reason: Insomnia Last Admin: 10/18/22 22:02 Dose: 50 mg Trazodone HCl (Trazodone Hcl 50 Mg Tablet) 150 mg PO BEDTIME [facility] Last Admin: 10/19/22 20:32 Dose: 150 mg Allergies Allergies Allergy/AdvReac Type Severity Reaction Status Date / Time oxaprozin [From Daypro] Allergy Rash Verified 10/15/22 13:34 Sulfa (Sulfonamide Allergy Rash Verified 10/15/22 13:33 Antibiotics) tramadol [From Ultram] Allergy Rash Verified 10/15/22 13:34 Assessment & Plan Assessment & Plan (1) Psychosis: Status: Acute Code(s): F29 - Unspecified psychosis not due to a substance or known physiological condition Plan Ms. Murillo is 42 year-old woman with hx of cocaine use, psychosis in past 2-3 months who self presented to [facility] ED reporting increased depression AH and suicidal ideation with plan to OD or cut wrist. Utox positive for cocaine. We discussed risks, benefits and alternative treatment options. We discussed risks benefits and alternative treatment options. Pt agrees to restart paliperidone 6mg po daily, ativan prn for anxiety, prn olanzapine for agitation. PLAN 1. admit to m3, cv, 15 minutes checks for safety 2. start paliperidone 6mg po daily 3. obtain collateral information 4. aftercare planning. 10/17 continue tx. 10/18: start trazodone 100 for sleep. otherwise continue current mgmt. 10/19: increase trazodone 100 for sleep to 150 as of tonight. AH improving, sleep improving. otherwise continue current mgmt. 10/20: sleeping well, no change in meds. AH improving. 3-day up 10/22. Reason for contiued inpatient stay Substantial Risk for: inability to function and rapid decompensation Time Spent With Patient Time: Total time managing care of this patient today _20___ minutes.
[2022-10-20 18:00] VITALS: BP 124/77; PULSE 113; RESP 18; TEMP 36.6; O2SAT 100
[2022-10-20] MEDS: diphenhydrAMINE HCL 25 MG CAPSULE PO (21:09)
[2022-10-20] MEDS: traZODone HCL 50 MG TABLET 150 MG PO (21:09)
[2022-10-20] MEDS: Haloperidol Lactate Oral Conc 10 MG/5 ML ORAL.CONC 5 MG PO (21:09)
[2022-10-21 09:01] VITALS: BP 128/80; PULSE 108; RESP 18; TEMP 36.5; O2SAT 96
[2022-10-21] MEDS: Paliperidone ER 6 MG TAB.ER.24 PO (09:02)
[2022-10-21] MEDS: OLANZapine ODT 10 MG TAB.RAPDIS TRANSLINGU ×2 (09:02→17:40)
[2022-10-21] MEDS: LORazepam 1 MG TABLET PO (09:02)
[2022-10-21] MEDS: Metoprolol Tartrate 25 MG TABLET PO ×2 (09:02→20:17)
[2022-10-21] MEDS: HaloperidoL 1 MG TABLET 2 MG PO ×3 (12:40→20:17)
--- NOTE | 2022-10-21 13:37 | P.PNPSI_ITS ---
Subjective Subjective Date of Service: 10/21/22 Reason For Visit: Psychosis Subjective Notes: Conditional Voluntary Interim History: Pt reports voices are less but continues to have them. She reports receving haldol with good effect and would like to schedule low dose haldol in addition to paliperidone. She reports sleeping and eating well. No SI/HI. She is retur morro to detention tomorrow. No behavioral concerns. Medication Compliance: Yes Review of Systems Review of Systems Yes Unobtainable due to mental condition Mental Status Exam Mental Status Exam Narrative: Appearance: wearing hospital gown, in NAD Behavior: cooperative Speech: clear, normal rate/rhythm, spontaneous Psychomotor: slight agitation TP: linear TC: hearing voices, distressed feeling anxious Mood: a little better Affect: congruent SI: none voiced HI: none voiced VH/AH: hearing voices Delusions: no overt delusional content Insight/judgment: fair x 2. Memory/cog: alert, oriented x 3. grossly intact to conversational testing. Diagnostics Vital Signs (24Hr): Vital Signs - 24 hr 10/20/22 18:00 10/21/22 09:01 Temperature 97.9 F 97.7 F Pulse Rate 113 H 108 H Respiratory Rate 18 18 Blood Pressure 124/77 128/80 Pulse Oximetry 100 96 Oxygen Delivery Method Room Air Room Air BMI result Body Mass Index 40.5 Labs 10/15/22 16:30 10/17/22 09:16 Imaging Radiology Impressions: ITS Impressions Ankle X-Ray 10/17/22 08:12 IMPRESSION: Mildly displaced transversely oriented distal fibular fracture, compatible with a supination-abduction inversion injury. Medications Medications Current Medications Acetaminophen (Acetaminophen 325 Mg Tablet) 650 mg PO Q4H PRN PRN Reason: Headache/Pain Mild Scale (1-3) Last Admin: 10/20/22 18:57 Dose: 650 mg Al Hydroxide/Mg Hydroxide (Magnesium Hydrox/Alum Hydrox 30 Ml Oral.Susp) 30 ml PO Q6H PRN PRN Reason: Heartburn/Nausea Diphenhydramine HCl (Diphenhydramine Hcl 25 Mg Capsule) 25 mg PO ONCE PRN PRN Reason: agitation Last Admin: 10/20/22 21:09 Dose: 25 mg Haloperidol (Haloperidol 1 Mg Tablet) 2 mg PO Q4H PRN PRN Reason: agitation/psychosis Last Admin: 10/21/22 12:40 Dose: 2 mg Haloperidol Lactate (Haloperidol Lactate Oral Conc 10 Mg/5 Ml Oral.Conc) 5 mg PO ONCE PRN PRN Reason: psychosis Last Admin: 10/20/22 21:09 Dose: 5 mg Hydroxyzine HCl (Hydroxyzine Hcl 25 Mg Tablet) 25 mg PO Q6H PRN PRN Reason: Anxiety Last Admin: 10/16/22 21:03 Dose: 25 mg Magnesium Hydroxide (Milk Of Magnesia 30 Ml Oral.Susp) 30 ml PO DAILY PRN PRN Reason: Constipation Metoprolol Tartrate (Metoprolol Tartrate 25 Mg Tablet) 25 mg PO BID IAM; Protocol Last Admin: 10/21/22 09:02 Dose: 25 mg Olanzapine (Olanzapine Odt 10 Mg Tab.Rapdis) 10 mg TRANSLINGU Q6H PRN PRN Reason: agitation Last Admin: 10/21/22 09:02 Dose: 10 mg Paliperidone (Paliperidone Er 6 Mg Tab.Er.24) 6 mg PO DAILY IAM Last Admin: 10/21/22 09:02 Dose: 6 mg Trazodone HCl (Trazodone Hcl 50 Mg Tablet) 50 mg PO BEDTIME PRN PRN Reason: Insomnia Last Admin: 10/18/22 22:02 Dose: 50 mg Trazodone HCl (Trazodone Hcl 50 Mg Tablet) 150 mg PO BEDTIME IAM Last Admin: 10/20/22 21:09 Dose: 150 mg Allergies Allergies Allergy/AdvReac Type Severity Reaction Status Date / Time oxaprozin [From Daypro] Allergy Rash Verified 10/15/22 13:34 Sulfa (Sulfonamide Allergy Rash Verified 10/15/22 13:33 Antibiotics) tramadol [From Ultram] Allergy Rash Verified 10/15/22 13:34 Assessment & Plan Assessment & Plan (1) Psychosis: Status: Acute Code(s): F29 - Unspecified psychosis not due to a substance or known physiological condition Plan Ms. Murillo is 42 year-old woman with hx of cocaine use, psychosis in past 2-3 months who self presented to [facility] [facility] ED reporting increased depression AH and suicidal ideation with plan to OD or cut wrist. Utox positive for cocaine. We discussed risks, benefits and alternative treatment options. We discussed risks benefits and alternative treatment options. Pt agrees to restart paliperidone 6mg po daily, ativan prn for anxiety, prn olanzapine for agitation. PLAN 1. admit to m3, cv, 15 minutes checks for safety 2. start paliperidone 6mg po daily 3. obtain collateral information 4. aftercare planning. 10/17 continue tx. 10/18: start trazodone 100 for sleep. otherwise continue current mgmt. 10/19: increase trazodone 100 for sleep to 150 as of tonight. AH improving, sleep improving. otherwise continue current mgmt. 10/20: sleeping well, no change in meds. AH improving. 3-day up 10/22. 10/21 schedule low dose haldol 2mg po BID in addition to paliperidone for voices. Reason for contiued inpatient stay Substantial Risk for: stable for discharge Time Spent With Patient Time: Total time managing care of this patient today ____ minutes.
[2022-10-21] MEDS: Acetaminophen 325 MG TABLET 650 MG PO (16:59)
[2022-10-21 20:00] VITALS: BP 116/59; PULSE 87; RESP 16; TEMP 36.3; O2SAT 95
[2022-10-21] MEDS: traZODone HCL 50 MG TABLET 150 MG PO (20:17)
[2022-10-22 08:17] VITALS: BP 135/65; PULSE 90; RESP 16; TEMP 36.6; O2SAT 96
[2022-10-22] MEDS: Paliperidone ER 6 MG TAB.ER.24 PO (08:20)
[2022-10-22] MEDS: HaloperidoL 1 MG TABLET 2 MG PO (08:20)
[2022-10-22] MEDS: Metoprolol Tartrate 25 MG TABLET PO (08:21)
--- NOTE | 2022-10-22 09:27 | P.DS_ITS ---
DS: Providers Provider Date of Service: 10/22/22 Date of admission: 10/16/22 13:58 Primary care physician: Unknown Physician Consults: 10/15/22 15:13 Consult to Care Team Stat Comment: Reason for consultation: suicide attempt 10/16/22 16:25 Consult to Orthopedics Routine Consulting Provider: Dontae Huntley Reason for consultation: right ankle fracture Has provider been notified: Yes DS: Diagnosis Discharge Diagnosis (1) Psychosis: Status: Acute DS: Medications Discharge Medications Home Medications: Previous Rx's Medication Instructions Recorded haloperidol 2 mg tablet 2 mg PO BID #60 tabs 10/22/22 metoprolol tartrate 25 mg tablet 25 mg PO BID #60 tabs 10/22/22 omeprazole 20 mg capsule,delayed 1 cap PO BID #60 caps 10/22/22 release paliperidone 6 mg tablet,extended 6 mg PO DAILY #30 tabs 10/22/22 release 24 hr (Invega) trazodone 150 mg tablet 150 mg PO BEDTIME #30 tabs 10/22/22 Mental Status Exam Mental Status Exam Narrative: Appearance: wearing hospital gown, in NAD Behavior: cooperative Speech: clear, normal rate/rhythm, spontaneous Psychomotor: slight agitation TP: linear TC: hearing voices, distressed feeling anxious Mood: a little better Affect: congruent SI: none voiced HI: none voiced VH/AH: hearing voices Delusions: no overt delusional content Insight/judgment: fair x 2. Memory/cog: alert, oriented x 3. grossly intact to conversational testing. Data Data Completed and Pending Completed studies during hospitalization [Text1]: 10/15/22 10/15/22 10/15/22 01:31 14:14 14:14 WBC RBC Hgb Hct MCV MCH MCHC RDW Plt Count MPV Immature Gran % (Auto) Neut % (Auto) Lymph % (Auto) [place] % (Auto) Eos % (Auto) Baso % (Auto) Lymph # (Auto) [place] # (Auto) Eos # (Auto) Baso # (Auto) Abs Immat Gran (auto) Absolute Neuts (auto) Absolute Nucleated RBC Nucleated RBC % (auto) Sodium Potassium Chloride Carbon Dioxide Anion Gap BUN Creatinine Estim Creat Clear Calc Estimated GFR Random Glucose Fasting Glucose Estimat Average Glucose Hemoglobin A1c % Calcium Magnesium Total Bilirubin Direct Bilirubin AST ALT Alkaline Phosphatase Total Protein Albumin Triglycerides Cholesterol LDL Cholesterol, Calc HDL Cholesterol Vitamin B12 Folate TSH Urine Color Yellow Urine Appearance Turbid Urine pH 5.5 Ur Specific [place] 1.020 Urine Protein Negative Urine Glucose (UA) Negative Urine Ketones 15 Urine Blood Trace H Urine Nitrite Positive H Ur Leukocyte Esterase Large (3+) H Urine RBC 0-2 Urine WBC >50 H Ur Squamous Epith Cells 11-20 Urine Bacteria 4+ Hyaline Casts 11-20 Urine Test NEGATIVE Salicylates Urine Opiates Screen Urine Fentanyl Screen Acetaminophen Ur Barbiturates Screen Ur Phencyclidine Scrn Ur Amphetamines Screen U Benzodiazepines Scrn Urine Cocaine Screen U Marijuana (THC) Screen Ethyl Alcohol COVID-19 (CELINE) Negative COVID-19 Clin Com See Note 10/15/22 10/15/22 10/15/22 14:14 16:30 16:30 WBC 6.6 RBC 4.63 Hgb 10.9 L Hct 35.6 L MCV 76.9 L MCH 23.5 L MCHC 30.6 L RDW 15.0 Plt Count 358 MPV 8.9 L Immature Gran % (Auto) 0.3 Neut % (Auto) 73.9 H Lymph % (Auto) 20.3 [place] % (Auto) 4.4 Eos % (Auto) 0.5 Baso % (Auto) 0.6 Lymph # (Auto) 1.3 [place] # (Auto) 0.3 Eos # (Auto) 0.0 Baso # (Auto) 0.0 Abs Immat Gran (auto) 0.02 Absolute Neuts (auto) 4.9 Absolute Nucleated RBC 0.000 Nucleated RBC % (auto) 0.0 Sodium 141 Potassium 4.2 Chloride 105 Carbon Dioxide 26 Anion Gap 14 BUN 11 Creatinine 0.87 Estim Creat Clear Calc 100.6 Estimated GFR > 60 Random Glucose 114 Fasting Glucose Estimat Average Glucose Hemoglobin A1c % Calcium 9.2 D Magnesium 2.0 Total Bilirubin 0.4 Direct Bilirubin < 0.2 AST 15 ALT 12 Alkaline Phosphatase 102 Total Protein 6.9 Albumin 4.1 Triglycerides Cholesterol LDL Cholesterol, Calc HDL Cholesterol Vitamin B12 Folate TSH Urine Color Urine Appearance Urine pH Ur Specific [place] Urine Protein Urine Glucose (UA) Urine Ketones Urine Blood Urine Nitrite Ur Leukocyte Esterase Urine RBC Urine WBC Ur Squamous Epith Cells Urine Bacteria Hyaline Casts Urine Test Salicylates < 5.0 L Urine Opiates Screen Not Detected Urine Fentanyl Screen Not Detected Acetaminophen < 17 Ur Barbiturates Screen Not Detected Ur Phencyclidine Scrn Not Detected Ur Amphetamines Screen Not Detected U Benzodiazepines Scrn Not Detected Urine Cocaine Screen POSITIVE H U Marijuana (THC) Screen Not Detected Ethyl Alcohol < 10 COVID-19 (CELINE) COVID-19 Clin Com 10/17/22 10/17/22 09:16 09:16 WBC RBC Hgb Hct MCV MCH MCHC RDW Plt Count MPV Immature Gran % (Auto) Neut % (Auto) Lymph % (Auto) [place] % (Auto) Eos % (Auto) Baso % (Auto) Lymph # (Auto) [place] # (Auto) Eos # (Auto) Baso # (Auto) Abs Immat Gran (auto) Absolute Neuts (auto) Absolute Nucleated RBC Nucleated RBC % (auto) Sodium 139 Potassium 4.8 Chloride 106 Carbon Dioxide 24 Anion Gap 14 BUN 15 Creatinine 0.80 Estim Creat Clear Calc 109.3 Estimated GFR > 60 Random Glucose Fasting Glucose 105 H Estimat Average Glucose 126 Hemoglobin A1c % 6.0 Calcium 9.2 Magnesium Total Bilirubin 0.4 Direct Bilirubin AST 16 ALT 10 Alkaline Phosphatase 92 Total Protein 6.6 Albumin 3.9 Triglycerides 114 Cholesterol 195 LDL Cholesterol, Calc 136 HDL Cholesterol 37 Vitamin B12 264 Folate 8.0 TSH 0.44 Urine Color Urine Appearance Urine pH Ur Specific [place] Urine Protein Urine Glucose (UA) Urine Ketones Urine Blood Urine Nitrite Ur Leukocyte Esterase Urine RBC Urine WBC Ur Squamous Epith Cells Urine Bacteria Hyaline Casts Urine Test Salicylates Urine Opiates Screen Urine Fentanyl Screen Acetaminophen Ur Barbiturates Screen Ur Phencyclidine Scrn Ur Amphetamines Screen U Benzodiazepines Scrn Urine Cocaine Screen U Marijuana (THC) Screen Ethyl Alcohol COVID-19 (CELINE) COVID-19 Clin Com 10/15/22 15:15 Urine clean catch - Urine vazquez top Urine Culture - Final Strep agalactiae (Grp B) Imaging Diagnostic Imaging Impressions Ankle X-Ray 10/17/22 08:12 IMPRESSION: Mildly displaced transversely oriented distal fibular fracture, compatible with a supination-abduction inversion injury. DS: Summary Hospital Course Hospital Course: Subjective Notes: Chavira Warning (given and shows understanding) and Conditional Voluntary Narrative: Ms. 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 In the ED, utox positive for cocaine. On the unit, pt present as anxious and restless. She reports hearing voices telling her that she will be killed, and derogatory statements. She reports voices on and off for some months. She was on POPE of invega sustenna with good effect. She reports suicidal ideation but denies any plan to harm herself while on the unit. She reports poor sleep and appetite. Past Psychiatric History: Inpt: [facility] 2022 OP: none Past medication trials; paliperidone. Medical Evaluation Reviewed: Yes HOSPITAL COURSE On the unit, pt was admitted on a CV and placed on 15 minutes checks for safety. Pt reported hearing voices and feeling overwhelmed with voices. After discussing risks, benefits and alternative treatment options, pt agreed to restart paliperidone. She continued to hear voices, added low dose haldol. Pt reported less voices and mostly hearing mumbles. No SI/HI. No signs of aggression towards self or others. There were no incidences of disruptive behaviors nor need for restraints. Pt agreed to step down to custodial. Status at Discharge Cognitive/behavioral status at discharge: Pt with bright, non labile affect. No SI/HI. Sleeping and eating well. Less voices. Future oriented. Functional status at discharge: independent ambulation Overall status at discharge: patient is progressing back to baseline Time Spent with Patient Time attestation: Total time managing care of this patient today ____ minutes. Discharge Plan Discharge Anticipated Discharge Date/Time: 10/22/22 09:10 Patient Disposition: Home, Self-Care Discharge Diagnosis: Psychosis, r/o mdd with psychosis Referrals: Asha (therapy intake) [Other] - 10/27/22 3:00 pm (Telehealth appointment. Once you complete the intake you will be scheduled for a psychiatry appointment. Services will be virtual but out of the [place] office -Please check your email with any information regarding the telehealth appointment. The email addresses used are the ones you provided to your high school social studies tutor. ) Physician,Unknown J [Primary Care Provider] - 1 Week Discharge Medications: New metoprolol tartrate 25 mg Tablet 25 mg PO BID Qty: 60 0RF Protocol: Hold for SBP/HR < HOLD for SBP < : 90 HOLD for HR < : 60 haloperidol 2 mg tablet 2 mg PO BID Qty: 60 0RF paliperidone [Invega] 6 mg Tablet Extended Release 24 Hr 6 mg PO DAILY Qty: 30 0RF trazodone 150 mg tablet 150 mg PO BEDTIME Qty: 30 0RF Continued omeprazole 20 mg capsule,delayed release(DR/EC) 1 cap PO BID Qty: 60 0RF Discontinued ibuprofen 600 mg tablet 600 mg PO Q6H PRN (Reason: pain) Qty: 20 0RF (DME) aziza Jaquez See Rx Instructions .ROUTE .MEDSUPPLY Qty: 1 0RF Rx Instructions: As directed metoprolol tartrate 25 mg tablet 1 tab PO BID losartan 25 mg Tablet 50 mg PO DAILY amitriptyline 100 mg Tablet 100 mg PO BEDTIME Invega Sustenna 156 mg/mL Syringe 156 mg IM Q30D Discharge Orders: Discharge Order (Routine); Ordered 10/22/22 Ordered By: Claudine Matthews Diet: Regular diet Activity on Discharge: As tolerated Stand Alone Forms: Patient Portal Discharge page Care Plan Goals: 1. Maintain mood 2. No SI/HI 3. Less AH Health Concerns: Follow up PCP Plan of Treatment: 1. Take medications as prescribed. 2. Go to nearest ED or call 911 in event of emergency. Assessment: Pt with bright, non labile affect. No SI/HI. Future oriented looking forward to continue OP tx. Less AH/VH. Sleeping and eating well.
--- NOTE | 2022-10-22 12:02 | PC.NURSE ---
Patient easily engaged. Reports mood is a little sad . Anxious. Denies any SI/HI at this time. Endorses auditory hallucinations. Reports they come and go. Discharge paperwork reviewed. Follow-up appointments reviewed, reports understanding. Discharge medications reviewed, reports understanding. All belongings taken with patient. Crisis numbers provided at discharge. Patient states she is returning to halfway.
== END 2022-10-22 11:40 | disposition home or self-care (01) | DRG 885 ==
LOC: HO.ED 15:21 → HO.PADLT16 10-16 14:09
PROVIDERS: Physician Assistant; Admitting Provider Psychiatry & Neurology Psychiatry; Emergency Provider Emergency Medicine; Visit Provider Social Worker
DX: F32.3 Major depressive disorder, single episode, severe with psychotic features (principal); R45.851 Suicidal ideations; N39.0 Urinary tract infection, site not specified; M79.7 Fibromyalgia; I10 Essential (primary) hypertension; Z20.822 Contact with and (suspected) exposure to COVID-19; Z91.51 Personal history of suicidal behavior; Z88.2 Allergy status to sulfonamides; Z88.5 Allergy status to narcotic agent; Z88.8 Allergy status to other drugs, medicaments and biological substances; Z79.899 Other long term (current) drug therapy
CPT/HCPCS: 36415; 73600; 80048; 80053; 80061; 80076; 80143; 80179; 80307; 81001; 81025; 82077; 82607; 82746; 83036; 83735; 84443; 85025; 87086; 87635; 93005; 99285

== ENCOUNTER 2022-10-22 18:30 | Inpatient (IN) | payer OTHER, SELFPAY ==
[2022-10-22 18:55] VITALS: BP 159/102; PULSE 108; RESP 16; TEMP 36.6; O2SAT 95; BMI 40.5
--- NOTE | 2022-10-22 19:04 | ED_ITS ---
HPI - Psych General Chief Complaint: Psychiatric Symptoms Stated Complaint: Crisis/ Behavioral Time Seen by Provider: 10/22/22 18:56 Source: patient Mode of arrival: ambulatory History of Present Illness HPI Narrative: 42-year-old female presents for crisis consult. Patient states that she is hearing voices telling her to kill herself and overdose on her medications. MD complaint: suicidal ideation, anxiety and hallucinations Duration: constant History of same: Yes Relieving factors: none Exacerbating factors: none Associated psychiatric symptoms: auditory hallucinations and delusions Associated symptoms: denies other symptoms If self harm: admits thoughts of self harm and has plan Related Data Previous Rx's Medication Instructions Recorded haloperidol 2 mg tablet 2 mg PO BID #60 tabs 10/22/22 metoprolol tartrate 25 mg tablet 25 mg PO BID #60 tabs 10/22/22 omeprazole 20 mg capsule,delayed 1 cap PO BID #60 caps 10/22/22 release paliperidone 6 mg tablet,extended 6 mg PO DAILY #30 tabs 10/22/22 release 24 hr (Invega) trazodone 150 mg tablet 150 mg PO BEDTIME #30 tabs 10/22/22 Allergies Allergy/AdvReac Type Severity Reaction Status Date / Time oxaprozin [From Daypro] Allergy Rash Verified 10/15/22 13:34 Sulfa (Sulfonamide Allergy Rash Verified 10/15/22 13:33 Antibiotics) tramadol [From Ultram] Allergy Rash Verified 10/15/22 13:34 Review of Systems Review of Systems: Constitutional: No Fever, No Chills Cardiovascular: No Chest Pain, No SOB Respiratory: No Cough, No Dyspnea Gastrointestinal: No Nausea, No Vomiting, No Diarrhea, No abdominal Pain Skin: No Skin lacerations, No rash Neuro: No Weakness, No Dizziness, No Headache Psych: Positive Anxiety, positive Depression, positive auditory hallucinations, positive suicidal ideation Yes all other systems are reviewed and are negative [facility] Past Medical History Attestation statement: The following information was validated with the patient. Source: old records reviewed Medical History Fibromyalgia Hypertension IBS (irritable bowel syndrome) Suicide attempt Social History Social History Household Members: Other Housing: Homeless Housing Other:: lives in a care home Do you presently have visiting nurse or other home services: No Alcohol intake: never Patient Tobacco Use Status: Never used Tobacco Substance Use Type: Crack/Cocaine Advance Directives: No Advance Directives Information Provided: No Healthcare Proxy: No Guardian: No service: No Current occupational status: disabled Sexual orientation: Straight/Heterosexual Physical Exam Vital Signs: Vital Signs: Last Vital Signs Temp 98.1 F 10/22/22 23:21 Pulse 97 10/22/22 23:21 Resp 16 10/22/22 23:21 BP 135/97 H 10/22/22 23:21 Pulse Ox 98 10/22/22 23:21 O2 Del Method 10/22/22 23:21 BMI result Body Mass Index 40.5 Appearance: Alert. Moderate emotional distress. Eyes: Pupils equal, round and reactive to light. Neck: Normal inspection. Neck supple. CVS: Normal heart rate and rhythm. Pulses normal. Respiratory: No respiratory distress. Skin: Skin warm and dry. Normal skin color. Extremities: Gait balanced and coordinated. Neuro: No motor deficit. No sensory deficit. Cranial nerves 2-12 intact. Course Course Course Narrative: 42-year-old female presents for psychiatric evaluation. She is having auditory hallucinations, voices are telling her to kill herself by overdosing on all of her medications. She was just discharged from [facility] this morning. Was admitted on 10/16/2022 for auditory hallucinations. She is diagnosed with MDD, with psychosis versus substance induced psychosis and cocaine use disorder. Patient's presentation she is rocking back and forth, anxious, chanting to herself, needs multiple verbal cues for redirection. Patient is not interested in answering questions by this [employer]. 20:30 tox screen positive for fentanyl however patient has received trazodone. Patient does not appear to be under the influence of opioids. Labs negative for acute findings. Cleared. 20:53 care team consult complete, plan of care is for respite. 23:30 patient would like to be discharged home because she does not want to go to respite. Plan is to re-evaluate in the morning. Physician observation at this time. Medications Administered Generic Name Dose Route Start Last Admin Trade Name Freq PRN Reason Stop Dose Admin Haloperidol 2 mg 10/22/22 22:15 10/22/22 23:13 Haloperidol 1 Mg Tablet PO 2 mg BID IAM Administration Metoprolol Tartrate 25 mg 10/22/22 22:15 10/22/22 23:13 Metoprolol Tartrate 25 Mg Tablet PO 25 mg BID IAM Administration Protocol Trazodone HCl 150 mg 10/22/22 22:15 10/22/22 23:13 Trazodone Hcl 50 Mg Tablet PO 150 mg BEDTIME IAM Administration Medical Decision Making Differential Diagnosis Differential Diagnoses: The differential diagnosis associated with the presentation includes Suicidal ideation, psychosis, drug induced psychosis Admission/Observation Consideration of admission/observation: Escalation of care including admission/observation considered Possible M5 admission Consult Healthcare Provider Management of the patient was discussed with: Behavioral Health Provider Lab Data MDM Lab Attestation statement: I reviewed the patient's lab results. 10/22/22 19:29 10/22/22 19:29 Labs: Lab Results 10/22/22 10/22/22 10/22/22 Range/Units 19:06 19:10 19:10 WBC (4.8-10.8) X10*3/uL RBC (4.20-5.50) X10*6/uL Hgb (12.0-16.0) g/dl Hct (37.0-47.0) % MCV (80.0-98.0) fL MCH (27.0-33.0) pg MCHC (31.0-35.0) g/dl RDW (11.0-16.0) % Plt Count (160-400) X10*3/uL MPV (9.4-12.3) fL Immature Gran % (Auto) (0.0-0.4) % Neut % (Auto) (45-73) % Lymph % (Auto) (20-40) % [place] % (Auto) (2-11) % Eos % (Auto) (0-4) % Baso % (Auto) (0-2) % Lymph # (Auto) (1.2-4.9) X10*3/uL [place] # (Auto) (0.1-1.2) X10*3/uL Eos # (Auto) (0.0-0.4) X10*3/uL Baso # (Auto) (0.0-0.2) X10*3/uL Abs Immat Gran (auto) (0.00-0.03) X10*3/uL Absolute Neuts (auto) (2.0-8.3) x10*3/uL Absolute Nucleated RBC (0.0-0.012) X10*3/uL Nucleated RBC % (auto) (0.0-0.2) /100WBC Smear Tech's Comments Sodium (135-145) mmol/L Potassium (3.3-5.1) mmol/L Chloride (96-108) mmol/L Carbon Dioxide (22-29) mmol/L Anion Gap (12-20) BUN (9-16) mg/dL Creatinine (0.5-1.4) mg/dL Estim Creat Clear Calc Estimated GFR Random Glucose (60-115) mg/dL Calcium (8.4-10.2) mg/dL Total Bilirubin (0.0-1.0) mg/dL AST (5-31) U/L ALT (0-31) U/L Alkaline Phosphatase (39-117) U/L Total Protein (6.5-8.0) g/dL Albumin (3.5-5.0) g/dL Urine Color Urine Appearance Urine pH (5.0-9.0) Ur Specific [place] (1.005-1.025) Urine Protein (Neg-Trace) mg/dL Urine Glucose (UA) (Negative) mg/dL Urine Ketones (Negative) mg/dL Urine Blood (Negative) Urine Nitrite (Negative) Ur Leukocyte Esterase (Negative) Urine RBC (0-2) /HPF Urine WBC (0-5) /HPF Ur Squamous Epith Cells (0-2) /HPF Urine Bacteria (None Seen) Hyaline Casts (0-2) /LPF Urine Test NEGATIVE (NEGATIVE) Salicylates (15-30) mg/dL Urine Opiates Screen Not Detected (Not Detect) Urine Fentanyl Screen POSITIVE H (Not Detect) Acetaminophen (<30) mcg/mL Ur Barbiturates Screen Not Detected (Not Detect) Ur Phencyclidine Scrn Not Detected (Not Detect) Ur Amphetamines Screen Not Detected (Not Detect) U Benzodiazepines Scrn Not Detected (Not Detect) Urine Cocaine Screen Not Detected (Not Detect) U Marijuana (THC) Screen Not Detected (Not Detect) Ethyl Alcohol mg/dL COVID-19 (CELINE) Negative (Negative) COVID-19 Clin Com See Note 03/01/23 03/01/23 03/01/23 Range/Units 19:10 19:29 19:29 WBC 7.9 (4.8-10.8) X10*3/uL RBC 4.69 (4.20-5.50) X10*6/uL Hgb 10.9 L (12.0-16.0) g/dl Hct 35.3 L (37.0-47.0) % MCV 75.3 L (80.0-98.0) fL MCH 23.2 L (27.0-33.0) pg MCHC 30.9 L (31.0-35.0) g/dl RDW 14.8 (11.0-16.0) % Plt Count 190 D (160-400) X10*3/uL MPV 9.9 (9.4-12.3) fL Immature Gran % (Auto) 0.6 H (0.0-0.4) % Neut % (Auto) 67.4 (45-73) % Lymph % (Auto) 24.5 (20-40) % [place] % (Auto) 5.2 (2-11) % Eos % (Auto) 1.5 (0-4) % Baso % (Auto) 0.8 (0-2) % Lymph # (Auto) 1.9 (1.2-4.9) X10*3/uL [place] # (Auto) 0.4 (0.1-1.2) X10*3/uL Eos # (Auto) 0.1 (0.0-0.4) X10*3/uL Baso # (Auto) 0.1 (0.0-0.2) X10*3/uL Abs Immat Gran (auto) 0.05 H (0.00-0.03) X10*3/uL Absolute Neuts (auto) 5.4 (2.0-8.3) x10*3/uL Absolute Nucleated RBC 0.000 (0.0-0.012) X10*3/uL Nucleated RBC % (auto) 0.0 (0.0-0.2) /100WBC Smear Tech's Comments VERIFIED Sodium 139 (135-145) mmol/L Potassium 4.6 (3.3-5.1) mmol/L Chloride 107 (96-108) mmol/L Carbon Dioxide 19 L (22-29) mmol/L Anion Gap 18 (12-20) BUN 11 (9-16) mg/dL Creatinine 0.82 (0.5-1.4) mg/dL Estim Creat Clear Calc 106.7 Estimated GFR > 60 Random Glucose 118 H (60-115) mg/dL Calcium 9.4 (8.4-10.2) mg/dL Total Bilirubin 0.3 (0.0-1.0) mg/dL AST 18 (5-31) U/L ALT 14 (0-31) U/L Alkaline Phosphatase 100 (39-117) U/L Total Protein 7.3 (6.5-8.0) g/dL Albumin 4.1 (3.5-5.0) g/dL Urine Color Yellow Urine Appearance Clear Urine pH 5.5 (5.0-9.0) Ur Specific [place] 1.015 (1.005-1.025) Urine Protein Negative (Neg-Trace) mg/dL Urine Glucose (UA) Negative (Negative) mg/dL Urine Ketones Negative (Negative) mg/dL Urine Blood Negative (Negative) Urine Nitrite Negative (Negative) Ur Leukocyte Esterase Small (1+) H (Negative) Urine RBC 0-2 (0-2) /HPF Urine WBC 0-5 (0-5) /HPF Ur Squamous Epith Cells 11-20 (0-2) /HPF Urine Bacteria None Seen (None Seen) Hyaline Casts 3-5 (0-2) /LPF Urine Test (NEGATIVE) Salicylates < 5.0 L (15-30) mg/dL Urine Opiates Screen (Not Detect) Urine Fentanyl Screen (Not Detect) Acetaminophen < 17 (<30) mcg/mL Ur Barbiturates Screen (Not Detect) Ur Phencyclidine Scrn (Not Detect) Ur Amphetamines Screen (Not Detect) U Benzodiazepines Scrn (Not Detect) Urine Cocaine Screen (Not Detect) U Marijuana (THC) Screen (Not Detect) Ethyl Alcohol mg/dL COVID-19 (CELINE) (Negative) COVID-19 Clin Com 10/22/22 Range/Units 19:29 WBC (4.8-10.8) X10*3/uL RBC (4.20-5.50) X10*6/uL Hgb (12.0-16.0) g/dl Hct (37.0-47.0) % MCV (80.0-98.0) fL MCH (27.0-33.0) pg MCHC (31.0-35.0) g/dl RDW (11.0-16.0) % Plt Count (160-400) X10*3/uL MPV (9.4-12.3) fL Immature Gran % (Auto) (0.0-0.4) % Neut % (Auto) (45-73) % Lymph % (Auto) (20-40) % [place] % (Auto) (2-11) % Eos % (Auto) (0-4) % Baso % (Auto) (0-2) % Lymph # (Auto) (1.2-4.9) X10*3/uL [place] # (Auto) (0.1-1.2) X10*3/uL Eos # (Auto) (0.0-0.4) X10*3/uL Baso # (Auto) (0.0-0.2) X10*3/uL Abs Immat Gran (auto) (0.00-0.03) X10*3/uL Absolute Neuts (auto) (2.0-8.3) x10*3/uL Absolute Nucleated RBC (0.0-0.012) X10*3/uL Nucleated RBC % (auto) (0.0-0.2) /100WBC Smear Tech's Comments Sodium (135-145) mmol/L Potassium (3.3-5.1) mmol/L Chloride (96-108) mmol/L Carbon Dioxide (22-29) mmol/L Anion Gap (12-20) BUN (9-16) mg/dL Creatinine (0.5-1.4) mg/dL Estim Creat Clear Calc Estimated GFR Random Glucose (60-115) mg/dL Calcium (8.4-10.2) mg/dL Total Bilirubin (0.0-1.0) mg/dL AST (5-31) U/L ALT (0-31) U/L Alkaline Phosphatase (39-117) U/L Total Protein (6.5-8.0) g/dL Albumin (3.5-5.0) g/dL Urine Color Urine Appearance Urine pH (5.0-9.0) Ur Specific [place] (1.005-1.025) Urine Protein (Neg-Trace) mg/dL Urine Glucose (UA) (Negative) mg/dL Urine Ketones (Negative) mg/dL Urine Blood (Negative) Urine Nitrite (Negative) Ur Leukocyte Esterase (Negative) Urine RBC (0-2) /HPF Urine WBC (0-5) /HPF Ur Squamous Epith Cells (0-2) /HPF Urine Bacteria (None Seen) Hyaline Casts (0-2) /LPF Urine Test (NEGATIVE) Salicylates (15-30) mg/dL Urine Opiates Screen (Not Detect) Urine Fentanyl Screen (Not Detect) Acetaminophen (<30) mcg/mL Ur Barbiturates Screen (Not Detect) Ur Phencyclidine Scrn (Not Detect) Ur Amphetamines Screen (Not Detect) U Benzodiazepines Scrn (Not Detect) Urine Cocaine Screen (Not Detect) U Marijuana (THC) Screen (Not Detect) Ethyl Alcohol < 10 mg/dL COVID-19 (CELINE) (Negative) COVID-19 Clin Com External Record Review External record reviewed: Inpatient record, Outpatient record and Prior outpat ient labs Social Determinants Patient?s care significantly limited by Social Determinants of Health including: Other Social Determinant of Health Discharge Plan Discharge Clinical Impression: Psychosis, Auditory hallucination, Depression, Acute anxiety Patient Disposition: Still a Patient Instructions: Depression (ED), Hallucinations (ED), Psychotic Disorder (ED) Additional Instructions: Continue with outpatient psychiatry as scheduled. Thank you for choosing this emergency department for evaluation. Please follow-up with primary care physician as needed. Return to the emergency department for any new, concerning, or worsening symptoms. Prescriptions: No Action metoprolol tartrate 25 mg Tablet 25 mg PO BID Qty: 60 0RF Protocol: Hold for SBP/HR < HOLD for SBP < : 90 HOLD for HR < : 60 haloperidol 2 mg tablet 2 mg PO BID Qty: 60 0RF paliperidone [Invega] 6 mg Tablet Extended Release 24 Hr 6 mg PO DAILY Qty: 30 0RF trazodone 150 mg tablet 150 mg PO BEDTIME Qty: 30 0RF omeprazole 20 mg capsule,delayed release(DR/EC) 1 cap PO BID Qty: 60 0RF
[2022-10-22 19:19] LABS: Appearance Urine Clear; Color Urine Yellow; Glucose Urine UA Negative (Negative); Leukocyte Esterase Urine Small (1+) (Negative); Nitrite Urine Negative (Negative); PH 5.5 (5.0-9.0); Specific Gravity - Urine 1.015 (1.005-1.025); UMIC TRIGGER UA YES; UPreg QC Valid YES; Urine Blood Negative (Negative); Urine Ketones Negative (Negative); Urine Pregnancy NEGATIVE (NEGATIVE); Urine Protein Negative (Neg-Trace)
[2022-10-22 19:27] LABS: Bacteria Urine None Seen (None Seen); RBC Urine 0-2 /HPF (0-2); WBC Urine 0-5 /HPF (0-5)
[2022-10-22 19:30] LABS: COVID-19 Test Negative (Negative); IDNOW Serial# BCCEAD1C
[2022-10-22 19:34] LABS: Amphetamine Screen Urine Not Detected (Not Detect); Barbiturates, Urine Not Detected (Not Detect); Benzodiazepines Screen Urine Not Detected (Not Detect); Cannabinoid Screen Urine Not Detected (Not Detect); Cocaine Screen Urine Not Detected (Not Detect); Fentanyl, urine POSITIVE (Not Detect); Opiate Screen Urine Not Detected (Not Detect); Phencyclidine Screen Urine Not Detected (Not Detect)
[2022-10-22 19:40] LABS: Mean Corpuscular Hemoglobin 23.2 pg (27.0-33.0); Mean Corpuscular Volume 75.3 fL (80.0-98.0); PLT CLUMP 1; SCAN SMEAR FLAG 1
[2022-10-22 19:42] LABS: Basophils Absolute Auto 0.1 X10*3/uL (0.0-0.2); Basophils Percent Auto 0.8 % (0-2); Eosinophils Absolute Auto 0.1 X10*3/uL (0.0-0.4); Eosinophils Percent Auto 1.5 % (0-4); Hematocrit 35.3 % (37.0-47.0); Hemoglobin 10.9 g/dl (12.0-16.0); Imm Gran Abs Auto 0.05 X10*3/uL (0.00-0.03); Imm Gran Pct Auto 0.6 % (0.0-0.4); Lymphocytes Absolute Auto 1.9 X10*3/uL (1.2-4.9); Lymphocytes Percent Auto 24.5 % (20-40); MANUAL DIFF FLAG SCAN; Mean Corpuscular HGB Conc 30.9 g/dl (31.0-35.0); Mean Platelet Volume 9.9 fL (9.4-12.3); Monocytes Absolute Auto 0.4 X10*3/uL (0.1-1.2); Monocytes Percent Auto 5.2 % (2-11); Neutrophils Absolute Auto 5.4 x10*3/uL (2.0-8.3); Neutrophils Percent Auto 67.4 % (45-73); Red Blood Count 4.69 X10*6/uL (4.20-5.50); Red Cell Distribution Width 14.8 % (11.0-16.0)
[2022-10-22 20:02] LABS: Acetaminophen LAB < 17 mcg/mL (<30); Alanine Aminotransferase 14 U/L (0-31); Albumin Level 4.1 g/dL (3.5-5.0); Alkaline Phosphatase 100 U/L (39-117); Anion Gap 18 (12-20); Aspartate Amino Transferase 18 U/L (5-31); Bilirubin Total 0.3 mg/dL (0.0-1.0); Blood Urea Nitrogen 11 mg/dL (9-16); Calcium 9.4 mg/dL (8.4-10.2); Carbon Dioxide 19 mmol/L (22-29); Chloride 107 mmol/L (96-108); Creatinine Clr Calc Pharmacy 106.7; Estimated Glomerular Filt Rate > 60; Glucose Random 118 mg/dL (60-115); Potassium 4.6 mmol/L (3.3-5.1); Salicylate < 5.0 mg/dL (15-30); Sodium 139 mmol/L (135-145); Total Protein 7.3 g/dL (6.5-8.0)
[2022-10-22 20:07] LABS: Ethanol < 10 mg/dL; Platelet Count 190 X10*3/uL (160-400); White Blood Count 7.9 X10*3/uL (4.8-10.8)
[2022-10-22 20:09] LABS: SLIDE REVIEW VERIFIED
[2022-10-22] MEDS: traZODone HCL 50 MG TABLET 150 MG PO (23:13)
[2022-10-22] MEDS: Metoprolol Tartrate 25 MG TABLET PO (23:13)
[2022-10-22] MEDS: HaloperidoL 1 MG TABLET 2 MG PO (23:13)
[2022-10-22 23:21] VITALS: BP 135/97; PULSE 97; RESP 16; TEMP 36.7; O2SAT 98
--- NOTE | 2022-10-23 06:12 | PC.NURSE ---
Patient sat in hallway chair whole shift, calm and quiet, no distress observed/reported, behavior non concerning, medication compliant, initial disposition per care team was Respite bed search and bed search was successful but patient later refused to go to Respite and request for discharge but care team not comfortable discharging at this time, patient will be reevaluated in the morning, will continue to monitor.
[2022-10-23 07:31] VITALS: BP 117/89; PULSE 97; RESP 17; TEMP 36.6; O2SAT 97
--- NOTE | 2022-10-23 07:52 | PC.NURSE ---
Report from Alton RN, pt sitting up in chair in [place], flat affect, quiet. Per report pt has not slept all night. Calm and coop at this time, awaiting dispo.
[2022-10-23 08:26] VITALS: BP 115/86; PULSE 97; RESP 16; TEMP 36.8; O2SAT 96
--- NOTE | 2022-10-23 08:31 | PC.NURSE ---
This RN attempting to medicate pt with morning meds, pt appears semi catatonic/thought blocking
--- NOTE | 2022-10-23 08:37 | PC.NURSE ---
Pt stating she will take her meds, but when meds brought to her she just stares at them, attempt made x 3 to medicate with no success. Pt continues to sit in [place], flat, staring.
--- NOTE | 2022-10-23 11:40 | PC.NURSE ---
Per Brandon Mireles and pt to start on Ativan tid for suspected catatonia.
--- NOTE | 2022-10-23 12:05 | PC.NURSE ---
This RN attempted to medicate pt with PO ativan, pt stared at this nurse and did not react when asked if she would take her meds, as soon as this nurse walked away pt states I will take them and then continued to stare at this nurse and not take medications. This RN re-attempted twice unsuccessfully before returning meds to [facility] with witness. Pt continues to sit in [place] blankly staring, flat affect.
--- NOTE | 2022-10-23 12:29 | PC.NURSE ---
The plan at this time is to admin Ativan 2mg IM due to pt's profound level of disorganization and inability to take her medications.
[2022-10-23] MEDS: LORazepam 2 MG/ML VIAL IM ×2 (15:00→22:18)
--- NOTE | 2022-10-23 15:26 | PC.NURSE ---
report received from RAQUEL Kendall Pt unwilling to cooperate with care, in semi-catatonic state where she will answer some questions but at other times have blank stare. MD aware, instead of oral Ativan, IM Ativan was given. Pt tolerated IM ativan fairly well. Pt used walker to go back to room and lay down. Pt is currently sleeping at this time. Respirations are even and unlabored, skin pwd, no apparent distress
--- NOTE | 2022-10-23 16:36 | PC.NURSE ---
pt sleeping, respirations even and unlabored, no apparent distress
--- NOTE | 2022-10-23 16:41 | P.CNPS_ITS ---
History of Present Illness Date of Service: 10/23/22 Chief Complaint: Crisis/ Behavioral Reason for Consult: assess Requesting physician: Temitope Islas Discussed with referring provider: Yes Sources of Information: patient interviewed, chart reviewed and crisis/core team assessment reviewed HPI Narrative: Ms. Murillo is a 42 year-old woman with mdd with psychosis, cocaine use disorder who re-presented to [facility] the same day she was discharged from , her boyfriend reporting disorganized behavior. Patient was treated on M3 for psychotic illness. There she was started on Invega 6 mg which was partially helpful. The day before discharged Haldol 2 mg b.i.d. was added. At discharge she was doing better, eating, talking and auditory hallucinations had lowered. She was discharged on 10/22 but returned later that day brought in by her boyfriend. Patient is currently catatonic, mute, sitting in 1 [address], not moving with blank stare all day all night; she is not eating and not drinking and with symptoms of stupor, mutism, negativism. Patient would not talk to keno writer/runner but just stared blankly; staff reports she has said very little since arriving. Ativan ordered to treat catatonia. When approached, Pt says she wants the Ativan ativan, saying yes I will take them but when it is offered, she just sits there and stares at it, hardly moving at all as she is too disorganized to take medication PO; she will however verbally reiterates that she will take the medication. Past Psychiatric History: Discharged from on 10/22/22; returned later that day Inpt: [facility] 2022 OP: none Past medication trials; paliperidone; haldol Medical Evaluation Reviewed: Yes [facility] Medical History Fibromyalgia Hypertension IBS (irritable bowel syndrome) Suicide attempt Family History: denies Social History: currently homeless. Substance History: cocaine use disorder Trauma History: not disclosed Diagnostics Vital Signs (24Hr): Vital Signs - 24 hr 10/22/22 18:55 10/22/22 23:21 10/23/22 07:31 Temperature 97.8 F 98.1 F 97.9 F Pulse Rate 108 H 97 97 Respiratory Rate 16 16 17 Blood Pressure 159/102 H 135/97 H 117/89 Pulse Oximetry 95 98 97 Oxygen Delivery Method Room Air Room Air Room Air 10/23/22 08:26 Temperature 98.3 F Pulse Rate 97 Respiratory Rate 16 Blood Pressure 115/86 Pulse Oximetry 96 Oxygen Delivery Method Room Air BMI result Body Mass Index 40.5 Labs 10/22/22 19:29 10/22/22 19:29 Labs: Laboratory Results - last 48 hr 10/22/22 10/22/22 10/22/22 19:06 19:10 19:10 WBC RBC Hgb Hct MCV MCH MCHC RDW Plt Count MPV Immature Gran % (Auto) Neut % (Auto) Lymph % (Auto) [place] % (Auto) Eos % (Auto) Baso % (Auto) Lymph # (Auto) [place] # (Auto) Eos # (Auto) Baso # (Auto) Abs Immat Gran (auto) Absolute Neuts (auto) Absolute Nucleated RBC Nucleated RBC % (auto) Smear Tech's Comments Sodium Potassium Chloride Carbon Dioxide Anion Gap BUN Creatinine Estim Creat Clear Calc Estimated GFR Random Glucose Calcium Total Bilirubin AST ALT Alkaline Phosphatase Total Protein Albumin Urine Color Urine Appearance Urine pH Ur Specific [place] Urine Protein Urine Glucose (UA) Urine Ketones Urine Blood Urine Nitrite Ur Leukocyte Esterase Urine RBC Urine WBC Ur Squamous Epith Cells Urine Bacteria Hyaline Casts Urine Test NEGATIVE Salicylates Urine Opiates Screen Not Detected Urine Fentanyl Screen POSITIVE H Acetaminophen Ur Barbiturates Screen Not Detected Ur Phencyclidine Scrn Not Detected Ur Amphetamines Screen Not Detected U Benzodiazepines Scrn Not Detected Urine Cocaine Screen Not Detected U Marijuana (THC) Screen Not Detected Ethyl Alcohol COVID-19 (CELINE) Negative COVID-19 Clin Com See Note 10/22/22 10/22/22 10/22/22 19:10 19:29 19:29 WBC 7.9 RBC 4.69 Hgb 10.9 L Hct 35.3 L MCV 75.3 L MCH 23.2 L MCHC 30.9 L RDW 14.8 Plt Count 190 D MPV 9.9 Immature Gran % (Auto) 0.6 H Neut % (Auto) 67.4 Lymph % (Auto) 24.5 [place] % (Auto) 5.2 Eos % (Auto) 1.5 Baso % (Auto) 0.8 Lymph # (Auto) 1.9 [place] # (Auto) 0.4 Eos # (Auto) 0.1 Baso # (Auto) 0.1 Abs Immat Gran (auto) 0.05 H Absolute Neuts (auto) 5.4 Absolute Nucleated RBC 0.000 Nucleated RBC % (auto) 0.0 Smear Tech's Comments VERIFIED Sodium 139 Potassium 4.6 Chloride 107 Carbon Dioxide 19 L Anion Gap 18 BUN 11 Creatinine 0.82 Estim Creat Clear Calc 106.7 Estimated GFR > 60 Random Glucose 118 H Calcium 9.4 Total Bilirubin 0.3 AST 18 ALT 14 Alkaline Phosphatase 100 Total Protein 7.3 Albumin 4.1 Urine Color Yellow Urine Appearance Clear Urine pH 5.5 Ur Specific [place] 1.015 Urine Protein Negative Urine Glucose (UA) Negative Urine Ketones Negative Urine Blood Negative Urine Nitrite Negative Ur Leukocyte Esterase Small (1+) H Urine RBC 0-2 Urine WBC 0-5 Ur Squamous Epith Cells 11-20 Urine Bacteria None Seen Hyaline Casts 3-5 Urine Test Salicylates < 5.0 L Urine Opiates Screen Urine Fentanyl Screen Acetaminophen < 17 Ur Barbiturates Screen Ur Phencyclidine Scrn Ur Amphetamines Screen U Benzodiazepines Scrn Urine Cocaine Screen U Marijuana (THC) Screen Ethyl Alcohol COVID-19 (CELINE) COVID-19 [place] 10/22/22 19:29 WBC RBC Hgb Hct MCV MCH MCHC RDW Plt Count MPV Immature Gran % (Auto) Neut % (Auto) Lymph % (Auto) [place] % (Auto) Eos % (Auto) Baso % (Auto) Lymph # (Auto) [place] # (Auto) Eos # (Auto) Baso # (Auto) Abs Immat Gran (auto) Absolute Neuts (auto) Absolute Nucleated RBC Nucleated RBC % (auto) Smear Tech's Comments Sodium Potassium Chloride Carbon Dioxide Anion Gap BUN Creatinine Estim Creat Clear Calc Estimated GFR Random Glucose Calcium Total Bilirubin AST ALT Alkaline Phosphatase Total Protein Albumin Urine Color Urine Appearance Urine pH Ur Specific [place] Urine Protein Urine Glucose (UA) Urine Ketones Urine Blood Urine Nitrite Ur Leukocyte Esterase Urine RBC Urine WBC Ur Squamous Epith Cells Urine Bacteria Hyaline Casts Urine Test Salicylates Urine Opiates Screen Urine Fentanyl Screen Acetaminophen Ur Barbiturates Screen Ur Phencyclidine Scrn Ur Amphetamines Screen U Benzodiazepines Scrn Urine Cocaine Screen U Marijuana (THC) Screen Ethyl Alcohol < 10 COVID-19 (CELINE) COVID-19 Clin Com Mental Status Exam Mental Status Exam Narrative: Pt is alert; behavior disorganized, hardly moving, not talking not eating not drinking; calm; dressed in hospital attire with unkempt hair; mood is described as blunted as is affect; eye contact staring blankly; Speech is very limited as patient is mostly mute; significant psychomotor retardation present; thought process is disorganized; thought content not revealed; patient is internally preoccupied; insight and judgment are impaired. Medications Medications Current Medications Metoprolol Tartrate (Metoprolol Tartrate 25 Mg Tablet) 25 mg PO BID [facility]; Protocol Last Admin: 10/23/22 08:37 Dose: Not Given Omeprazole (Omeprazole 20 Mg Capsule.Dr) 20 mg PO BID@0630,1630 [facility] Last Admin: 10/23/22 06:23 Dose: Not Given Paliperidone (Paliperidone Er 6 Mg Tab.Er.24) 6 mg PO DAILY [facility] Last Admin: 10/23/22 08:37 Dose: Not Given Trazodone HCl (Trazodone Hcl 50 Mg Tablet) 150 mg PO BEDTIME [facility] Last Admin: 10/22/22 23:13 Dose: 150 mg Allergies Allergies Allergy/AdvReac Type Severity Reaction Status Date / Time oxaprozin [From Daypro] Allergy Rash Verified 10/15/22 13:34 Sulfa (Sulfonamide Allergy Rash Verified 10/15/22 13:33 Antibiotics) tramadol [From Ultram] Allergy Rash Verified 10/15/22 13:34 Assessment & Plan Assessment & Plan (1) Psychosis: Status: Acute Code(s): F29 - Unspecified psychosis not due to a substance or known physiological condit ion (2) Catatonia: Status: Suspected Code(s): F06.1 - Catatonic disorder due to known physiological condition Plan Ms. Murillo is a 42 year-old woman with mdd with psychosis, cocaine use disorder who re-presented to [facility] the same day she was discharged from , her boyfriend reporting disorganized behavior. Patient was treated on M3 for psychotic illness and started on Invega 6 mg which was partially helpful. The day before discharged Haldol 2 mg b.i.d. was added. At discharge she was doing better, eating, talking and auditory hallucinations had lowered. She was dis charged on 10/22 but returned later that day brought in by her boyfriend. Patient is currently catatonic, mute, sitting in 1 [address], not moving with blank stare all day all night; she is not eating and not drinking. -patient is currently catatonic likely due to psychotic illness and/or medication induced with symptoms of stupor, mutism, negativism, -Will start tx for catatonia; pt consents to treatment, consent to ativan, but is likely too disorganized take PO medication; will order IM as needed -IV is also an option -will try to treat catatonia aggressively as it can quickly progress and worsen -patient to be admitted PLAN: Patient requires inpatient admission as she is too disorganized to take care of herself in the commit DC Haldol Will Continue Palliperidone for now, but will consider temporally dc'ing Give Ativan 2 mg 1 time dose either p.o. or IM Start Ativan 1mg TID either p.o. or IM; may increase to 2 mg Discontinue Haldol Will seek to find if patient has HCP Met with and discussed case with Dr. Howe who agrees with plan Total time managing care of this patient today ____ minutes. Patient educated on: diagnosis and medication risk/benefits Informed Consent: does not understand
[2022-10-23 21:05] VITALS: BP 117/71; PULSE 136; RESP 18; TEMP 36.6; O2SAT 92
--- NOTE | 2022-10-23 22:27 | PC.NURSE ---
Pt unable to take PO Ativan. Contacted air transportation provider provider Talib and he ordered Ativan 2mg IM. Given.
--- NOTE | 2022-10-24 01:34 | PC.ADMIT ---
Pt arrived to the unit at 2114 from [facility] ED POD via wheelchair. Pt is a 12B. 15 minute safety checks. Pt refused to sign legals and refused to complete admission. Admission assessment was completed by care team evaluation and by previous admission assessment. Pt was recently on M3, discharged 10/22/22. Returned to ER 8 hours after discharge with similar presentation of psychosis and Catatonia. Pt with flat affect, not responding to any questions; appearing catatonic. Pt has a R ankle fracture and is wearing a walking boot and ambulates with walker. Pt Covid Negative on 10/22/22. Pt positive for Fentanyl. Safety tool & treatment plan completed. At 2218 Pt did receive Ativan 2mg IM to her R ventrogluteal area d/t PO Ativan refusal per MD order by Primary RN. Pt safe on unit.
[2022-10-24 08:00] VITALS: BP 100/63; PULSE 98; RESP 18; TEMP 36.6; O2SAT 96
[2022-10-24] MEDS: Omeprazole 20 MG CAPSULE.DR PO ×2 (09:00→18:32)
[2022-10-24] MEDS: Metoprolol Tartrate 25 MG TABLET PO ×2 (09:01→22:49)
[2022-10-24] MEDS: LORazepam 1 MG TABLET 2 MG PO ×3 (09:01→22:49)
--- NOTE | 2022-10-24 14:06 | P.HPPS_ITS ---
HPI Date of Service: 10/24/22 Chief Complaint: psychosis HPI Narrative: pt had been admitted to from 10/16 through 10/22, when she was discharged. per 10/22 discharge summary: Ms. Murillo is a 42 year-old woman with mdd with psychosis versus substance induced psychosis, cocaine use disorder who presented [place] [facility] reporting increase depression, AH, in setting of cocaine use. In the ED, utox positive for cocaine. On the unit, pt present as anxious and restless. She reports hearing voices telling her that she will be killed, and derogatory statements. She reports voices on and off for some months. She was on POPE of invega sustenna with good effect. She reports suicidal ideation but denies any plan to harm herself while on the unit. She reports poor sleep and appetite. Past Psychiatric History: Inpt: [facility] 2022 OP: none Past medication trials; paliperidone. Medical Evaluation Reviewed: Yes HOSPITAL COURSE On the unit, pt was admitted on a CV and placed on 15 minutes checks for safety. Pt reported hearing voices and feeling overwhelmed with voices. After discussing risks, benefits and alternative treatment options, pt agreed to restart paliperidone. She continued to hear voices, added low dose haldol. Pt reported less voices and mostly hearing mumbles. No SI/HI. No signs of aggression towards self or others. There were no incidences of disruptive behaviors nor need for restraints. Pt agreed to step down to [facility]. she re-presented to [facility] within 4 hours of discharge with symptoms similar to her presentation on 10/16, per CARE team report. she developed c atatonia within a day and was then referred for admission to the inpatient mental health unit. on attempted interview by MD, she is able to respond to loud voice by opening her eyes, but she makes no reply to questions and does not move. she received ativan 2 mg IM yesterday at 3 pm for catatonia, and another 2 mg again last evening for the same. Past Psychiatric History: Discharged from on 10/22/22; returned later that day Inpt: [facility] 2022 OP: none Past medication trials; paliperidone; haldol Medical Evaluation Reviewed: Yes [facility] Medical History Fibromyalgia Hypertension IBS (irritable bowel syndrome) Suicide attempt Family History: denies Social History: currently homeless. Substance History: cocaine on and off for years Trauma History: not disclosed Diagnostics Vital Signs (24Hr): Vital Signs - 24 hr 10/23/22 21:05 10/24/22 08:00 Temperature 97.8 F 97.9 F Pulse Rate 136 H 98 Respiratory Rate 18 18 Blood Pressure 117/71 100/63 Pulse Oximetry 92 96 Oxygen Delivery Method Room Air Room Air BMI result Body Mass Index 40.5 Labs 10/22/22 19:29 10/22/22 19:29 Labs: Laboratory Results - last 48 hr 10/22/22 10/22/22 10/22/22 19:06 19:10 19:10 WBC RBC Hgb Hct MCV MCH MCHC RDW Plt Count MPV Immature Gran % (Auto) Neut % (Auto) Lymph % (Auto) [place] % (Auto) Eos % (Auto) Baso % (Auto) Lymph # (Auto) [place] # (Auto) Eos # (Auto) Baso # (Auto) Abs Immat Gran (auto) Absolute Neuts (auto) Absolute Nucleated RBC Nucleated RBC % (auto) Smear Tech's Comments Sodium Potassium Chloride Carbon Dioxide Anion Gap BUN Creatinine Estim Creat Clear Calc Estimated GFR Random Glucose Calcium Total Bilirubin AST ALT Alkaline Phosphatase Total Protein Albumin Urine Color Urine Appearance Urine pH Ur Specific [place] Urine Protein Urine Glucose (UA) Urine Ketones Urine Blood Urine Nitrite Ur Leukocyte Esterase Urine RBC Urine WBC Ur Squamous Epith Cells Urine Bacteria Hyaline Casts Urine Test NEGATIVE Salicylates Urine Opiates Screen Not Detected Urine Fentanyl Screen POSITIVE H Acetaminophen Ur Barbiturates Screen Not Detected Ur Phencyclidine Scrn Not Detected Ur Amphetamines Screen Not Detected U Benzodiazepines Scrn Not Detected Urine Cocaine Screen Not Detected U Marijuana (THC) Screen Not Detected Ethyl Alcohol COVID-19 (CELINE) Negative COVID-19 Clin Com See Note 10/22/22 10/22/22 10/22/22 19:10 19:29 19:29 WBC 7.9 RBC 4.69 Hgb 10.9 L Hct 35.3 L MCV 75.3 L MCH 23.2 L MCHC 30.9 L RDW 14.8 Plt Count 190 D MPV 9.9 Immature Gran % (Auto) 0.6 H Neut % (Auto) 67.4 Lymph % (Auto) 24.5 [place] % (Auto) 5.2 Eos % (Auto) 1.5 Baso % (Auto) 0.8 Lymph # (Auto) 1.9 [place] # (Auto) 0.4 Eos # (Auto) 0.1 Baso # (Auto) 0.1 Abs Immat Gran (auto) 0.05 H Absolute Neuts (auto) 5.4 Absolute Nucleated RBC 0.000 Nucleated RBC % (auto) 0.0 Smear Tech's Comments VERIFIED Sodium 139 Potassium 4.6 Chloride 107 Carbon Dioxide 19 L Anion Gap 18 BUN 11 Creatinine 0.82 Estim Creat Clear Calc 106.7 Estimated GFR > 60 Random Glucose 118 H Calcium 9.4 Total Bilirubin 0.3 AST 18 ALT 14 Alkaline Phosphatase 100 Total Protein 7.3 Albumin 4.1 Urine Color Yellow Urine Appearance Clear Urine pH 5.5 Ur Specific [place] 1.015 Urine Protein Negative Urine Glucose (UA) Negative Urine Ketones Negative Urine Blood Negative Urine Nitrite Negative Ur Leukocyte Esterase Small (1+) H Urine RBC 0-2 Urine WBC 0-5 Ur Squamous Epith Cells 11-20 Urine Bacteria None Seen Hyaline Casts 3-5 Urine Test Salicylates < 5.0 L Urine Opiates Screen Urine Fentanyl Screen Acetaminophen < 17 Ur Barbiturates Screen Ur Phencyclidine Scrn Ur Amphetamines Screen U Benzodiazepines Scrn Urine Cocaine Screen U Marijuana (THC) Screen Ethyl Alcohol COVID-19 (CELINE) COVID-19 Clin Com 10/22/22 19:29 WBC RBC Hgb Hct MCV MCH MCHC RDW Plt Count MPV Immature Gran % (Auto) Neut % (Auto) Lymph % (Auto) [place] % (Auto) Eos % (Auto) Baso % (Auto) Lymph # (Auto) [place] # (Auto) Eos # (Auto) Baso # (Auto) Abs Immat Gran (auto) Absolute Neuts (auto) Absolute Nucleated RBC Nucleated RBC % (auto) Smear Tech's Comments Sodium Potassium Chloride Carbon Dioxide Anion Gap BUN Creatinine Estim Creat Clear Calc Estimated GFR Random Glucose Calcium Total Bilirubin AST ALT Alkaline Phosphatase Total Protein Albumin Urine Color Urine Appearance Urine pH Ur Specific [place] Urine Protein Urine Glucose (UA) Urine Ketones Urine Blood Urine Nitrite Ur Leukocyte Esterase Urine RBC Urine WBC Ur Squamous Epith Cells Urine Bacteria Hyaline Casts Urine Test Salicylates Urine Opiates Screen Urine Fentanyl Screen Acetaminophen Ur Barbiturates Screen Ur Phencyclidine Scrn Ur Amphetamines Screen U Benzodiazepines Scrn Urine Cocaine Screen U Marijuana (THC) Screen Ethyl Alcohol < 10 COVID-19 (CELINE) COVID-19 Clin Com Meds/Allergies Allergies Allergies Allergy/AdvReac Type Severity Reaction Status Date / Time oxaprozin [From Daypro] Allergy Rash Verified 10/15/22 13:34 Sulfa (Sulfonamide Allergy Rash Verified 10/15/22 13:33 Antibiotics) tramadol [From Ultram] Allergy Rash Verified 10/15/22 13:34 Mental Status Exam Mental Status Exam Narrative: lying in bed. opens eyes to repeated loud voice. does not move or answer questions, blinking occasionally. 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 IM as needed if unable to take PO. attempt to provide previous medications regimen as well. Patient educated on: medication risk/benefits Reason for continued inpatient stay Substantial Risk for: harm to self and inability to function Statement Statement: I have reviewed the history and physical and performed a pertinent examination on my patient. No changes have occurred unless specified. If the History and Physical was not performed prior to admission, the Hospitalist's service will be consulted for completing the admission physical. Time Spent With Patient Time: Total time managing care of this patient today __45__ minutes.
--- NOTE | 2022-10-24 15:02 | PC.NURSE ---
Pt seems more alert following simple commands. I asked her to sit up to take her medication, for which she complied. I asked her if she would like an orange sherbert , she replied yes and ate it. Thelma walked down to nurses with her walker to tell certified legal secretary specialist that she doesn't want her boyfriend to visit.
[2022-10-24 22:50] VITALS: BP 104/56; PULSE 106; RESP 18; TEMP 36.6; O2SAT 93
[2022-10-25 09:00] VITALS: BP 88/52; PULSE 89; RESP 18; TEMP 36.6; O2SAT 96
[2022-10-25] MEDS: LORazepam 1 MG TABLET 2 MG PO ×3 (09:36→22:58)
[2022-10-25] MEDS: Omeprazole 20 MG CAPSULE.DR PO ×2 (09:36→15:58)
--- NOTE | 2022-10-25 12:59 | P.PNPSI_ITS ---
Subjective Subjective Date of Service: 10/25/22 Reason For Visit: psychosis catatonia Subjective Notes: Conditional Voluntary Interim History: Patient readmitted shortly after discharge Haljuan luis Conley were hold secondary to catatonia on lorazepam to t.i.d With quite anxious and withdrawn some psychotic symptoms this is 2nd psychiatric hospitalization in short period of time patient was only out of few hours. Medication Compliance: Yes Mental Status Exam Mental Status Exam Narrative: Patient seen in her room lying in bed anxious dysphoric in appearance shakes her head when asked about suicide the expression about voices mostly mute and anxious Was not aggressive Diagnostics Vital Signs (24Hr): Vital Signs - 24 hr 10/24/22 22:50 10/25/22 09:00 Temperature 97.8 F 97.8 F Pulse Rate 106 H 89 Respiratory Rate 18 18 Blood Pressure 104/56 L 88/52 L Pulse Oximetry 93 96 Oxygen Delivery Method Room Air Room Air BMI result Body Mass Index 40.5 Labs 10/22/22 19:29 10/22/22 19:29 Medications Medications Current Medications Acetaminophen (Acetaminophen 325 Mg Tablet) 650 mg PO Q6H PRN PRN Reason: Headache/Pain Mild Scale (1-3) Al Hydroxide/Mg Hydroxide (Magnesium Hydrox/Alum Hydrox 30 Ml Oral.Susp) 30 ml PO Q6H PRN PRN Reason: Heartburn/Nausea Hydroxyzine HCl (Hydroxyzine Hcl 25 Mg Tablet) 25 mg PO Q6H PRN PRN Reason: Anxiety Lorazepam (Lorazepam 1 Mg Tablet) 2 mg PO TID [facility] Last Admin: 10/25/22 09:36 Dose: 2 mg Magnesium Hydroxide (Milk Of Magnesia 30 Ml Oral.Susp) 30 ml PO DAILY PRN PRN Reason: Constipation Metoprolol Tartrate (Metoprolol Tartrate 25 Mg Tablet) 25 mg PO BID [facility]; Protocol Last Admin: 10/25/22 09:36 Dose: Not Given Omeprazole (Omeprazole 20 Mg Capsule.Dr) 20 mg PO BID@0630,1630 [facility] Last Admin: 10/25/22 09:36 Dose: 20 mg Trazodone HCl (Trazodone Hcl 50 Mg Tablet) 50 mg PO BEDTIME MRX1 PRN PRN Reason: Insomnia Allergies Allergies Allergy/AdvReac Type Severity Reaction Status Date / Time oxaprozin [[facility]] Allergy Rash Verified 10/15/22 13:34 Sulfa (Sulfonamide Allergy Rash Verified 10/15/22 13:33 Antibiotics) tramadol [From Ultram] Allergy Rash Verified 10/15/22 13:34 Assessment & Plan Assessment & Plan (1) Catatonia: Status: Suspected Code(s): F06.1 - Catatonic disorder due to known physiological condition (2) Psychosis: Status: Acute Code(s): F29 - Unspecified psychosis not due to a substance or known physiological condition Plan ativan 2 mg TID for catatonia. IM as needed if unable to take PO. Olanzapine p.r.n. unclear if Haldol contributed to catatonic like symptoms. Patient educated on: medication risk/benefits Informed Consent: further education needed Reason for contiued inpatient stay Substantial Risk for: harm to self, inability to function and rapid decompensation Time Spent With Patient Time: Total time managing care of this patient today ____ minutes.
[2022-10-25] MEDS: OLANZapine 5 MG TABLET PO ×2 (17:49→22:05)
[2022-10-25] MEDS: Metoprolol Tartrate 25 MG TABLET PO (21:58)
[2022-10-25 22:00] VITALS: BP 137/88; PULSE 125; RESP 18; TEMP 36.4; O2SAT 94
[2022-10-26] MEDS: Omeprazole 20 MG CAPSULE.DR PO ×2 (08:49→16:14)
[2022-10-26] MEDS: Metoprolol Tartrate 25 MG TABLET PO ×2 (08:49→20:29)
[2022-10-26] MEDS: LORazepam 1 MG TABLET 2 MG PO ×3 (08:49→20:30)
[2022-10-26 08:54] VITALS: BP 116/75; PULSE 96; RESP 18; TEMP 36.2; O2SAT 98
[2022-10-26] MEDS: OLANZapine 5 MG TABLET PO ×2 (09:15→13:54)
[2022-10-26] MEDS: hydrOXYzine HCL 25 MG TABLET PO ×2 (12:16→20:30)
[2022-10-26 20:15] VITALS: BP 116/67; PULSE 104; RESP 18; TEMP 36.6; O2SAT 95
[2022-10-26] MEDS: OLANZapine 2.5 MG TABLET 7.5 MG PO (20:30)
[2022-10-26] MEDS: traZODone HCL 50 MG TABLET PO (20:30)
--- NOTE | 2022-10-26 23:48 | HO.PSYCHPN ---
Subjective Subjective Date of Service: 10/26/22 Reason For Visit: psychosis catatonia Subjective Notes: Conditional Voluntary Interim History: Patient tearful anxious ruminating and upset regarding intrusive auditory hallucinations. Medication Compliance: Yes Mental Status Exam Mental Status Exam Narrative: Patient seen in her room lying in bed anxious dysphoric in appearance shakes her head when asked about suicide the expression about voices mostly mute and anxious ruminating Diagnostics Vital Signs (24Hr): Vital Signs - 24 hr 10/26/22 08:54 10/26/22 20:15 Temperature 97.2 F 97.9 F Pulse Rate 96 104 H Respiratory Rate 18 18 Blood Pressure 116/75 116/67 Pulse Oximetry 98 95 Oxygen Delivery Method Room Air Room Air BMI result Body Mass Index 40.5 Labs 10/22/22 19:29 10/22/22 19:29 Medications Medications Current Medications Acetaminophen (Acetaminophen 325 Mg Tablet) 650 mg PO Q6H PRN PRN Reason: Headache/Pain Mild Scale (1-3) Al Hydroxide/Mg Hydroxide (Magnesium Hydrox/Alum Hydrox 30 Ml Oral.Susp) 30 ml PO Q6H PRN PRN Reason: Heartburn/Nausea Hydroxyzine HCl (Hydroxyzine Hcl 25 Mg Tablet) 25 mg PO Q6H PRN PRN Reason: Anxiety Last Admin: 10/26/22 20:30 Dose: 25 mg Lorazepam (Lorazepam 1 Mg Tablet) 2 mg PO TID [facility] Last Admin: 10/26/22 20:30 Dose: 2 mg Magnesium Hydroxide (Milk Of Magnesia 30 Ml Oral.Susp) 30 ml PO DAILY PRN PRN Reason: Constipation Metoprolol Tartrate (Metoprolol Tartrate 25 Mg Tablet) 25 mg PO BID [facility]; Protocol Last Admin: 10/26/22 20:29 Dose: 25 mg Olanzapine (Olanzapine 5 Mg Tablet) 5 mg PO Q4H PRN PRN Reason: Psychosis Last Admin: 10/26/22 13:54 Dose: 5 mg Olanzapine (Olanzapine 2.5 Mg Tablet) 7.5 mg PO BEDTIME [facility] Last Admin: 10/26/22 20:30 Dose: 7.5 mg Omeprazole (Omeprazole 20 Mg Capsule.Dr) 20 mg PO BID@0630,1630 [facility] Last Admin: 10/26/22 16:14 Dose: 20 mg Trazodone HCl (Trazodone Hcl 50 Mg Tablet) 50 mg PO BEDTIME MRX1 PRN PRN Reason: Insomnia Last Admin: 10/26/22 20:30 Dose: 50 mg Allergies Allergies Allergy/AdvReac Type Severity Reaction Status Date / Time oxaprozin [From Daypro] Allergy Rash Verified 10/15/22 13:34 Sulfa (Sulfonamide Allergy Rash Verified 10/15/22 13:33 Antibiotics) tramadol [From Ultram] Allergy Rash Verified 10/15/22 13:34 Assessment & Plan Assessment & Plan (1) Catatonia: Status: Suspected Code(s): F06.1 - Catatonic disorder due to known physiological condition (2) Psychosis: Status: Acute Code(s): F29 - Unspecified psychosis not due to a substance or known physiological condition Plan ativan 2 mg TID for catatonia. IM as needed if unable to take PO. Olanzapine p.r.n. unclear if Haldol contributed to catatonic like symptoms. olanzapine 7.5 mg po q hs Patient educated on: medication risk/benefits and therapeutic strategies Informed Consent: further education needed Reason for contiued inpatient stay Substantial Risk for: harm to self, inability to function and rapid decompensation Time Spent With Patient Time: Total time managing care of this patient today ____ minutes.
[2022-10-27 08:00] VITALS: BP 115/58; PULSE 96; TEMP 36.5; O2SAT 95
[2022-10-27 08:29] VITALS: BP 129/72
[2022-10-27] MEDS: Metoprolol Tartrate 25 MG TABLET PO ×2 (08:31→20:16)
[2022-10-27] MEDS: LORazepam 1 MG TABLET 2 MG PO (08:32)
[2022-10-27] MEDS: Omeprazole 20 MG CAPSULE.DR PO ×2 (08:33→15:55)
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
--- NOTE | 2022-10-27 14:04 | PC.NURSE ---
Pt disputed belongings list. documented is 20$ in Pts wallet. Pt reports that she came in with 200$. Security called to check safe, no documented money in our safe.
[2022-10-27] MEDS: LORazepam 0.5 MG TABLET 1.5 MG PO ×2 (14:31→20:16)
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
--- NOTE | 2022-10-27 16:38 | PC.NURSE ---
Pt's Manny picked up pt's wallet which contained $20 and her a bank cards, pt is aware and signed belongings list agreeing to that.
[2022-10-27] MEDS: OLANZapine 5 MG TABLET PO (17:00)
[2022-10-27] MEDS: hydrOXYzine HCL 25 MG TABLET PO ×2 (17:00→20:16)
[2022-10-27] MEDS: Acetaminophen 325 MG TABLET 650 MG PO (18:05)
[2022-10-27 20:00] VITALS: BP 145/79; PULSE 110; RESP 16; TEMP 36.6; O2SAT 97
[2022-10-27] MEDS: OLANZapine 2.5 MG TABLET 7.5 MG PO (20:16)
[2022-10-27] MEDS: traZODone HCL 50 MG TABLET PO (21:00)
[2022-10-28 07:58] VITALS: BP 105/56; PULSE 86; TEMP 36.6; O2SAT 96
[2022-10-28] MEDS: LORazepam 0.5 MG TABLET 1.5 MG PO (08:50)
[2022-10-28] MEDS: Omeprazole 20 MG CAPSULE.DR PO ×2 (08:50→16:25)
[2022-10-28] MEDS: OLANZapine 5 MG TABLET PO ×3 (12:06→21:20)
[2022-10-28] MEDS: LORazepam 1 MG TABLET PO ×2 (14:31→20:33)
--- NOTE | 2022-10-28 14:34 | P.PNPSI_ITS ---
Subjective Subjective Date of Service: 10/28/22 Reason For Visit: psychosis catatonia Interim History: pt reports she is feeling improved. acknowledges ongoing Sx, agrees to have HS zyprexa increased from 7.5 mg to 10 mg. ativan taper to continue. per staff, 3-day notice up . crying yesterday. med and meal compliant. RIS - yelling back at them. scared to go to sleep bcse AH are telling her that if she does go to sleep she will . Mental Status Exam Mental Status Exam Narrative: Appearance: wearing hospital gown, in NAD Behavior: cooperative Speech: clear, decr rate and amount Psychomotor: perhaps general PMR TP: linear TC: feeling better Mood: good Affect: flat SI: none voiced HI: none voiced VH/AH: +AH Delusions: no overt delusional content Insight/judgment: fair x 2. Memory/cog: alert, oriented x 3. grossly intact to conversational testing. Diagnostics Vital Signs (24Hr): Vital Signs - 24 hr 10/27/22 20:00 10/28/22 07:58 Temperature 97.9 F 97.8 F Pulse Rate 110 H 86 Respiratory Rate 16 Blood Pressure 145/79 H 105/56 L Pulse Oximetry 97 96 Oxygen Delivery Method Room Air Room Air BMI result Body Mass Index 40.5 Labs 10/22/22 19:29 10/22/22 19:29 Medications Medications Current Medications Acetaminophen (Acetaminophen 325 Mg Tablet) 650 mg PO Q6H PRN PRN Reason: Headache/Pain Mild Scale (1-3) Last Admin: 10/27/22 18:05 Dose: 650 mg Al Hydroxide/Mg Hydroxide (Magnesium Hydrox/Alum Hydrox 30 Ml Oral.Susp) 30 ml PO Q6H PRN PRN Reason: Heartburn/Nausea Hydroxyzine HCl (Hydroxyzine Hcl 25 Mg Tablet) 25 mg PO Q6H PRN PRN Reason: Anxiety Last Admin: 10/27/22 20:16 Dose: 25 mg Lorazepam (Lorazepam 1 Mg Tablet) 1 mg PO TID [facility] Last Admin: 10/28/22 14:31 Dose: 1 mg Magnesium Hydroxide (Milk Of Magnesia 30 Ml Oral.Susp) 30 ml PO DAILY PRN PRN Reason: Constipation Metoprolol Tartrate (Metoprolol Tartrate 25 Mg Tablet) 25 mg PO BID [facility]; Protocol Last Admin: 10/28/22 08:51 Dose: Not Given Olanzapine (Olanzapine 5 Mg Tablet) 5 mg PO Q4H PRN PRN Reason: Psychosis Last Admin: 10/28/22 12:06 Dose: 5 mg Olanzapine (Olanzapine 10 Mg Tablet) 10 mg PO BEDTIME [facility] Omeprazole (Omeprazole 20 Mg Capsule.Dr) 20 mg PO BID@0630,1630 [facility] Last Admin: 10/28/22 08:50 Dose: 20 mg Trazodone HCl (Trazodone Hcl 50 Mg Tablet) 50 mg PO BEDTIME MRX1 PRN PRN Reason: Insomnia Last Admin: 10/27/22 21:00 Dose: 50 mg Allergies Allergies Allergy/AdvReac Type Severity Reaction Status Date / Time oxaprozin [From Daypro] Allergy Rash Verified 10/15/22 13:34 Sulfa (Sulfonamide Allergy Rash Verified 10/15/22 13:33 Antibiotics) tramadol [From Ultram] Allergy Rash Verified 10/15/22 13:34 Assessment & Plan Assessment & Plan (1) Catatonia: Status: Suspected Code(s): F06.1 - Catatonic disorder due to known physiological condition (2) Psychosis: Status: Acute Code(s): F29 - Unspecified psychosis not due to a substance or known physiological condition Plan 3: ativan 2 mg TID for catatonia. IM as needed if unable to take PO. 10/25: Olanzapine p.r.n. unclear if Haldol contributed to catatonic like symptoms. 10/26: olanzapine 7.5 mg po QHS 10/27: much improved on regimen of olanzapine and ativan. as catatonia has resolved, begin ativan taper. decrease deom 2 mg TID to 1.5 mg TID today. sec12b matures 10/29. 3/7: denies severe Sx yet also acknowledges AH telling her she will if she goes to sleep, which is making her not want to sleep. taper ativan from 1.5 TID to 1 TID. increase HS olanzapine to 10 mg. Reason for contiued inpatient stay Substantial Risk for: harm to self, inability to function and rapid decompensation Time Spent With Patient Time: Total time managing care of this patient today __25__ minutes.
[2022-10-28] MEDS: hydrOXYzine HCL 25 MG TABLET PO ×2 (16:25→21:20)
[2022-10-28] MEDS: Acetaminophen 325 MG TABLET 650 MG PO (16:26)
[2022-10-28 20:00] VITALS: BP 137/94; PULSE 116; RESP 20; TEMP 36.8; O2SAT 95
[2022-10-28] MEDS: Metoprolol Tartrate 25 MG TABLET PO (20:33)
[2022-10-28] MEDS: OLANZapine 10 MG TABLET PO (20:33)
[2022-10-28] MEDS: traZODone HCL 50 MG TABLET PO (21:57)
[2022-10-29 06:00] VITALS: BP 136/84; PULSE 98; RESP 18; TEMP 36.8; O2SAT 95
[2022-10-29] MEDS: LORazepam 1 MG TABLET PO ×3 (09:38→22:06)
[2022-10-29] MEDS: Omeprazole 20 MG CAPSULE.DR PO ×2 (09:39→17:25)
[2022-10-29] MEDS: Metoprolol Tartrate 25 MG TABLET PO ×2 (09:39→22:06)
[2022-10-29] MEDS: OLANZapine 5 MG TABLET PO ×2 (11:37→17:25)
[2022-10-29] MEDS: hydrOXYzine HCL 25 MG TABLET PO ×2 (11:37→17:25)
--- NOTE | 2022-10-29 14:49 | HO.PSYCHPN ---
Subjective Subjective Date of Service: 10/29/22 Reason For Visit: psychosis catatonia Interim History: calm, cooperative. seen throughout the day just sitting and crying in the milieu. flat, minimizing Sx. agreeable to rescind 3-day notice and then enters another, making for a thursday decision. agreeable to increase zyprexa to 20 mg at HS. per staff, AH saying they're going to kill me tonight. +AH. anx 8. no dep. no grps. to bed at midnight and appears to have slept. Mental Status Exam Mental Status Exam Narrative: Appearance: wearing hospital gown, in NAD Behavior: cooperative Speech: clear, decr rate and amount Psychomotor: perhaps general PMR TP: linear TC: feeling better Mood: anxious Affect: flat to tearful SI: none voiced HI: none voiced VH/AH: +AH Delusions: no overt delusional content Insight/judgment: fair x 2. Memory/cog: alert, oriented x 3. grossly intact to conversational testing. Diagnostics Vital Signs (24Hr): Vital Signs - 24 hr 10/28/22 20:00 10/29/22 06:00 Temperature 98.2 F 98.2 F Pulse Rate 116 H 98 Respiratory Rate 20 18 Blood Pressure 137/94 H 136/84 Pulse Oximetry 95 95 Oxygen Delivery Method Room Air Room Air BMI result Body Mass Index 40.5 Labs 10/22/22 19:29 10/22/22 19:29 Medications Medications Current Medications Acetaminophen (Acetaminophen 325 Mg Tablet) 650 mg PO Q6H PRN PRN Reason: Headache/Pain Mild Scale (1-3) Last Admin: 10/28/22 16:26 Dose: 650 mg Al Hydroxide/Mg Hydroxide (Magnesium Hydrox/Alum Hydrox 30 Ml Oral.Susp) 30 ml PO Q6H PRN PRN Reason: Heartburn/Nausea Hydroxyzine HCl (Hydroxyzine Hcl 25 Mg Tablet) 25 mg PO Q6H PRN PRN Reason: Anxiety Last Admin: 10/29/22 11:37 Dose: 25 mg Lorazepam (Lorazepam 1 Mg Tablet) 1 mg PO TID [facility] Last Admin: 10/29/22 14:14 Dose: 1 mg Magnesium Hydroxide (Milk Of Magnesia 30 Ml Oral.Susp) 30 ml PO DAILY PRN PRN Reason: Constipation Metoprolol Tartrate (Metoprolol Tartrate 25 Mg Tablet) 25 mg PO BID [facility]; Protocol Last Admin: 10/29/22 09:39 Dose: 25 mg Olanzapine (Olanzapine 5 Mg Tablet) 5 mg PO Q4H PRN PRN Reason: Psychosis Last Admin: 10/29/22 11:37 Dose: 5 mg Olanzapine (Olanzapine 10 Mg Tablet) 20 mg PO BEDTIME [facility] Omeprazole (Omeprazole 20 Mg Capsule.Dr) 20 mg PO BID@0630,1630 [facility] Last Admin: 10/29/22 09:39 Dose: 20 mg Trazodone HCl (Trazodone Hcl 50 Mg Tablet) 50 mg PO BEDTIME MRX1 PRN PRN Reason: Insomnia Last Admin: 10/28/22 21:57 Dose: 50 mg Allergies Allergies Allergy/AdvReac Type Severity Reaction Status Date / Time oxaprozin [From Daypro] Allergy Rash Verified 10/15/22 13:34 Sulfa (Sulfonamide Allergy Rash Verified 10/15/22 13:33 Antibiotics) tramadol [From Ultram] Allergy Rash Verified 10/15/22 13:34 Assessment & Plan Assessment & Plan (1) Catatonia: Status: Suspected Code(s): F06.1 - Catatonic disorder due to known physiological condition (2) Psychosis: Status: Acute Code(s): F29 - Unspecified psychosis not due to a substance or known physiological condition Plan 10/24: ativan 2 mg TID for catatonia. IM as needed if unable to take PO. 10/25: Olanzapine p.r.n. unclear if Haldol contributed to catatonic like symptoms. 10/26: olanzapine 7.5 mg po QHS 10/27: much improved on regimen of olanzapine and ativan. as catatonia has resolved, begin ativan taper. decrease deom 2 mg TID to 1.5 mg TID today. sec12b matures 10/29. 10/28: denies severe Sx yet also acknowledges AH telling her she will if she goes to sleep, which is making her not want to sleep. taper ativan from 1.5 TID to 1 TID. increase HS olanzapine to 10 mg. 10/29: retracted 3-day notice, submitted another which comes due on thursday. agreeable to increase zyprexa to 20 mg at HS. continue ativan at current dosing for now. T/C mood stabilizer if condition does not improve in the next couple of days. Reason for contiued inpatient stay Substantial Risk for: harm to self, inability to function and rapid decompensation Time Spent With Patient Time: Total time managing care of this patient today __25__ minutes.
[2022-10-29] MEDS: OLANZapine 10 MG TABLET 20 MG PO (22:06)
[2022-10-29] MEDS: traZODone HCL 50 MG TABLET PO (22:06)
[2022-10-29 22:10] VITALS: BP 105/60; PULSE 88; TEMP 36.7; O2SAT 95
[2022-10-30 08:30] VITALS: BP 110/60; PULSE 81; RESP 18; TEMP 37.2; O2SAT 94
[2022-10-30] MEDS: Metoprolol Tartrate 25 MG TABLET PO ×2 (08:41→23:13)
[2022-10-30] MEDS: OLANZapine 5 MG TABLET PO ×2 (08:41→15:36)
[2022-10-30] MEDS: LORazepam 1 MG TABLET PO ×2 (08:41→23:14)
[2022-10-30] MEDS: Omeprazole 20 MG CAPSULE.DR PO ×2 (08:41→15:36)
[2022-10-30] MEDS: carBAMazepine ER 200 MG TAB.ER.12H PO ×2 (11:20→23:13)
[2022-10-30 11:46] VITALS: BMI 37.2
--- NOTE | 2022-10-30 13:22 | P.PNPSI_ITS ---
Subjective Subjective Date of Service: 10/30/22 Reason For Visit: psychosis catatonia Interim History: seen crying in the milieu as well as in her bedroom. on being asked how she is doing, she reports OK. does report that she is crying due to things the AH are saying to her. she feels they are slowly decreasing, however. MD expresses concern she may need a mood stabilizer to help. she agrees to trial of tegretol, saying she has been on on VPA in the past and gained a lot of weight. MD also informs her of plan to taper ativan. per staff, new 3-day notice up 11/03. c/o AH, racing thoughts. eating and sleeping well. visible eves. states AH improving. tearful, safe on unit. Mental Status Exam Mental Status Exam Narrative: Appearance: wearing hospital gown, in NAD Behavior: cooperative Speech: clear, decr rate and amount Psychomotor: perhaps general PMR TP: linear TC: feeling better Mood: anxious Affect: flat to tearful SI: none voiced HI: none voiced VH/AH: +AH Delusions: no overt delusional content Insight/judgment: fair x 2. Memory/cog: alert, oriented x 3. grossly intact to conversational testing. Diagnostics Vital Signs (24Hr): Vital Signs - 24 hr 10/29/22 22:10 10/30/22 08:30 Temperature 98.1 F 99.0 F Pulse Rate 88 81 Respiratory Rate 18 Blood Pressure 105/60 110/60 Pulse Oximetry 95 94 Oxygen Delivery Method Room Air Room Air BMI result Body Mass Index 37.2 Labs 10/22/22 19:29 10/22/22 19:29 Medications Medications Current Medications Acetaminophen (Acetaminophen 325 Mg Tablet) 650 mg PO Q6H PRN PRN Reason: Headache/Pain Mild Scale (1-3) Last Admin: 10/28/22 16:26 Dose: 650 mg Al Hydroxide/Mg Hydroxide (Magnesium Hydrox/Alum Hydrox 30 Ml Oral.Susp) 30 ml PO Q6H PRN PRN Reason: Heartburn/Nausea Carbamazepine (Carbamazepine Er 200 Mg Tab.Er.12h) 200 mg PO BID [facility] Last Admin: 10/30/22 11:20 Dose: 200 mg Hydroxyzine HCl (Hydroxyzine Hcl 25 Mg Tablet) 25 mg PO Q6H PRN PRN Reason: Anxiety Last Admin: 10/29/22 17:25 Dose: 25 mg Lorazepam (Lorazepam 1 Mg Tablet) 1 mg PO BID [facility] Magnesium Hydroxide (Milk Of Magnesia 30 Ml Oral.Susp) 30 ml PO DAILY PRN PRN Reason: Constipation Metoprolol Tartrate (Metoprolol Tartrate 25 Mg Tablet) 25 mg PO BID [facility]; Protocol Last Admin: 10/30/22 08:41 Dose: 25 mg Olanzapine (Olanzapine 5 Mg Tablet) 5 mg PO Q4H PRN PRN Reason: Psychosis Last Admin: 10/30/22 08:41 Dose: 5 mg Olanzapine (Olanzapine 10 Mg Tablet) 20 mg PO BEDTIME [facility] Last Admin: 10/29/22 22:06 Dose: 20 mg Omeprazole (Omeprazole 20 Mg Capsule.Dr) 20 mg PO BID@0630,1630 [facility] Last Admin: 10/30/22 08:41 Dose: 20 mg Trazodone HCl (Trazodone Hcl 50 Mg Tablet) 50 mg PO BEDTIME MRX1 PRN PRN Reason: Insomnia Last Admin: 10/29/22 22:06 Dose: 50 mg Allergies Allergies Allergy/AdvReac Type Severity Reaction Status Date / Time oxaprozin [From Daypro] Allergy Rash Verified 10/15/22 13:34 Sulfa (Sulfonamide Allergy Rash Verified 10/15/22 13:33 Antibiotics) tramadol [From Ultram] Allergy Rash Verified 10/15/22 13:34 Assessment & Plan Assessment & Plan (1) Catatonia: Status: Suspected Code(s): F06.1 - Catatonic disorder due to known physiological condition (2) Psychosis: Status: Acute Code(s): F29 - Unspecified psychosis not due to a substance or known physiological condition Plan 10/24: ativan 2 mg TID for catatonia. IM as needed if unable to take PO. 10/25: Olanzapine p.r.n. unclear if Haldol contributed to catatonic like symptoms. 10/26: olanzapine 7.5 mg po QHS 10/27: much improved on regimen of olanzapine and ativan. as catatonia has resolved, begin ativan taper. decrease deom 2 mg TID to 1.5 mg TID today. sec12b matures 10/29. 10/28: denies severe Sx yet also acknowledges AH telling her she will if she goes to sleep, which is making her not want to sleep. taper ativan from 1.5 TID to 1 TID. increase HS olanzapine to 10 mg. 10/29: retracted 3-day notice, submitted another which comes due on thursday. agreeable to increase zyprexa to 20 mg at HS. continue ativan at current dosing for now. T/C mood stabilizer if condition does not improve in the next couple of days. 10/30: continues tearful, c/o AH. agreeable to start tegretol for mood stabilization, 200 mg BID. ativan decreased from 1 mg TID to 1 mg BID today. will taper further tomorrow, DC prior to discharge. 3-day notice matures thursday. Reason for contiued inpatient stay Substantial Risk for: harm to self, inability to function and rapid decom pensation Time Spent With Patient Time: Total time managing care of this patient today __20__ minutes.
[2022-10-30 15:34] VITALS: BP 133/77; PULSE 96; RESP 18; TEMP 36.7; O2SAT 97
[2022-10-30] MEDS: hydrOXYzine HCL 25 MG TABLET PO (15:36)
[2022-10-30 23:00] VITALS: BP 96/51; PULSE 86; RESP 16; TEMP 36.7; O2SAT 96
[2022-10-30] MEDS: traZODone HCL 50 MG TABLET PO (23:09)
[2022-10-30] MEDS: OLANZapine 10 MG TABLET 20 MG PO (23:11)
[2022-10-31 08:19] VITALS: BP 109/60; PULSE 92; RESP 18; TEMP 36.7; O2SAT 93
[2022-10-31] MEDS: OLANZapine 5 MG TABLET PO ×2 (08:51→13:45)
[2022-10-31] MEDS: LORazepam 1 MG TABLET PO (08:51)
[2022-10-31] MEDS: Metoprolol Tartrate 25 MG TABLET PO ×2 (08:51→20:50)
[2022-10-31] MEDS: Omeprazole 20 MG CAPSULE.DR PO ×2 (08:51→16:27)
[2022-10-31] MEDS: carBAMazepine ER 200 MG TAB.ER.12H PO ×2 (08:51→20:50)
--- NOTE | 2022-10-31 13:27 | P.PNPSI_ITS ---
Subjective Subjective Date of Service: 10/31/22 Reason For Visit: psychosis catatonia Interim History: calm today, not observed crying. in milieu. reports her mood is OK, and her AH are a little better. no questions or complaints, expecting to discharge thursday. informed ativan taper will be completed this . per staff, 3-day notice up 11/03. social. terse. crying, RIS, yelling out, leave me alone to (assumed). +AH, denies anx/dep. + meds and meals. appeared to have slept the night. Mental Status Exam Mental Status Exam Narrative: Appearance: wearing hospital gown, in NAD Behavior: cooperative Speech: clear, decr rate and amount Psychomotor: perhaps general PMR TP: linear TC: feeling better Mood: OK Affect: flat to tearful SI: none voiced HI: none voiced VH/AH: +AH ( a little better ) Delusions: no overt delusional content Insight/judgment: fair x 2. Memory/cog: alert, oriented x 3. grossly intact to conversational testing. Diagnostics Vital Signs (24Hr): Vital Signs - 24 hr 10/30/22 15:34 10/30/22 23:00 10/31/22 08:19 Temperature 98.1 F 98.0 F 98.0 F Pulse Rate 96 86 92 Respiratory Rate 18 16 18 Blood Pressure 133/77 96/51 L 109/60 Pulse Oximetry 97 96 93 Oxygen Delivery Method Room Air Room Air Room Air BMI result Body Mass Index 37.2 Labs 10/22/22 19:29 10/22/22 19:29 Medications Medications Current Medications Acetaminophen (Acetaminophen 325 Mg Tablet) 650 mg PO Q6H PRN PRN Reason: Headache/Pain Mild Scale (1-3) Last Admin: 10/28/22 16:26 Dose: 650 mg Al Hydroxide/Mg Hydroxide (Magnesium Hydrox/Alum Hydrox 30 Ml Oral.Susp) 30 ml PO Q6H PRN PRN Reason: Heartburn/Nausea Carbamazepine (Carbamazepine Er 200 Mg Tab.Er.12h) 200 mg PO BID IAM Last Admin: 10/31/22 08:51 Dose: 200 mg Hydroxyzine HCl (Hydroxyzine Hcl 25 Mg Tablet) 25 mg PO Q6H PRN PRN Reason: Anxiety Last Admin: 10/30/22 15:36 Dose: 25 mg Lorazepam (Lorazepam 0.5 Mg Tablet) 0.5 mg PO BID [facility] Stop: 11/02/22 09:01 Magnesium Hydroxide (Milk Of Magnesia 30 Ml Oral.Susp) 30 ml PO DAILY PRN PRN Reason: Constipation Metoprolol Tartrate (Metoprolol Tartrate 25 Mg Tablet) 25 mg PO BID [facility]; Protocol Last Admin: 10/31/22 08:51 Dose: 25 mg Olanzapine (Olanzapine 5 Mg Tablet) 5 mg PO Q4H PRN PRN Reason: Psychosis Last Admin: 10/31/22 08:51 Dose: 5 mg Olanzapine (Olanzapine 10 Mg Tablet) 20 mg PO BEDTIME [facility] Last Admin: 10/30/22 23:11 Dose: 20 mg Omeprazole (Omeprazole 20 Mg Capsule.Dr) 20 mg PO BID@0630,1630 [facility] Last Admin: 10/31/22 08:51 Dose: 20 mg Trazodone HCl (Trazodone Hcl 50 Mg Tablet) 50 mg PO BEDTIME MRX1 PRN PRN Reason: Insomnia Last Admin: 10/30/22 23:09 Dose: 50 mg Allergies Allergies Allergy/AdvReac Type Severity Reaction Status Date / Time oxaprozin [From Daypro] Allergy Rash Verified 10/15/22 13:34 Sulfa (Sulfonamide Allergy Rash Verified 10/15/22 13:33 Antibiotics) tramadol [From Ultram] Allergy Rash Verified 10/15/22 13:34 Assessment & Plan Assessment & Plan (1) Catatonia: Status: Suspected Code(s): F06.1 - Catatonic disorder due to known physiological condition (2) Psychosis: Status: Acute Code(s): F29 - Unspecified psychosis not due to a substance or known physiological condition Plan 10/24: ativan 2 mg TID for catatonia. IM as needed if unable to take PO. 10/25: Olanzapine p.r.n. unclear if Haldol contributed to catatonic like symptoms. 10/26: olanzapine 7.5 mg po QHS 10/27: much improved on regimen of olanzapine and ativan. as catatonia has resolved, begin ativan taper. decrease deom 2 mg TID to 1.5 mg TID today. sec12b matures 10/29. 10/28: denies severe Sx yet also acknowledges AH telling her she will if she goes to sleep, which is making her not want to sleep. taper ativan from 1.5 TID to 1 TID. increase HS olanzapine to 10 mg. 10/29: retracted 3-day notice, submitted another which comes due on thursday. agreeable to increase zyprexa to 20 mg at HS. continue ativan at current dosing for now. T/C mood stabilizer if condition does not improve in the next couple of days. 10/30: continues tearful, c/o AH. agreeable to start tegretol for mood stabilization, 200 mg BID. ativan decreased from 1 mg TID to 1 mg BID today. will taper further tomorrow, DC prior to discharge. 3-day notice matures thursday. 10/31: calm, cooperative. not crying today, more visible in milieu. still flat and superficial. hoping for thursday discharge. Reason for contiued inpatient stay Substantial Risk for: inability to function and rapid decompensation Time Spent With Patient Time: Total time managing care of this patient today ____ minutes.
[2022-10-31] MEDS: hydrOXYzine HCL 25 MG TABLET PO (13:45)
[2022-10-31] MEDS: Acetaminophen 325 MG TABLET 650 MG PO (16:28)
[2022-10-31] MEDS: traZODone HCL 50 MG TABLET PO (20:50)
[2022-10-31] MEDS: OLANZapine 10 MG TABLET 20 MG PO (20:50)
[2022-10-31] MEDS: LORazepam 0.5 MG TABLET PO (20:50)
[2022-10-31 20:53] VITALS: BP 120/65; PULSE 84; TEMP 36.4; O2SAT 94
[2022-11-01 08:25] VITALS: BP 157/88; PULSE 97; TEMP 36.3; O2SAT 94
[2022-11-01] MEDS: LORazepam 0.5 MG TABLET PO ×2 (08:29→20:56)
[2022-11-01] MEDS: Metoprolol Tartrate 25 MG TABLET PO ×2 (08:29→20:56)
[2022-11-01] MEDS: carBAMazepine ER 200 MG TAB.ER.12H PO ×2 (08:29→20:55)
[2022-11-01] MEDS: Omeprazole 20 MG CAPSULE.DR PO ×2 (08:30→16:55)
--- NOTE | 2022-11-01 10:32 | P.PNPSI_ITS ---
Subjective Subjective Date of Service: 11/01/22 Reason For Visit: psychosis catatonia Subjective Notes: Conditional Voluntary Healthcare Proxy: No Guardianship: No Medical Problems Affecting Mental Status: No Interim History: Patient was seen and discussed in rounds today. Records and plans were reviewed. She continues to be somewhat guarded and is intermittently tearful. Continues to have some auditory hallucinations but improved. No SI. She is compliant with medications. She does appear to respond to internal stimuli. She is working towards discharge on Thursday. Review of Systems Review of Systems Yes all other systems are reviewed and are negative Mental Status Exam Mental Status Exam Narrative: In today's visit she is alert, oriented and pleasant. Normal speech. Moderate eye contact. Affect is constricted. No overt signs of psychosis but admits to some auditory hallucinations and has been observed to be responding to internal stimuli. Cognitively is grossly intact. Judgment is intact Diagnostics Vital Signs (24Hr): Vital Signs - 24 hr 10/31/22 20:53 11/01/22 08:25 Temperature 97.6 F 97.4 F Pulse Rate 84 97 Blood Pressure 120/65 157/88 H Pulse Oximetry 94 94 Oxygen Delivery Method Room Air Room Air BMI result Body Mass Index 37.2 Labs 10/22/22 19:29 10/22/22 19:29 Medications Medications Current Medications Acetaminophen (Acetaminophen 325 Mg Tablet) 650 mg PO Q6H PRN PRN Reason: Headache/Pain Mild Scale (1-3) Last Admin: 10/31/22 16:28 Dose: 650 mg Al Hydroxide/Mg Hydroxide (Magnesium Hydrox/Alum Hydrox 30 Ml Oral.Susp) 30 ml PO Q6H PRN PRN Reason: Heartburn/Nausea Carbamazepine (Carbamazepine Er 200 Mg Tab.Er.12h) 200 mg PO BID COUNT [facility]CLUDES [facility] Last Admin: 11/01/22 08:29 Dose: 200 mg Hydroxyzine HCl (Hydroxyzine Hcl 25 Mg Tablet) 25 mg PO Q6H PRN PRN Reason: Anxiety Last Admin: 10/31/22 13:45 Dose: 25 mg Lorazepam (Lorazepam 0.5 Mg Tablet) 0.5 mg PO BID [facility]CLUDES [facility] Stop: 11/02/22 09:01 Last Admin: 11/01/22 08:29 Dose: 0.5 mg Magnesium Hydroxide (Milk Of Magnesia 30 Ml Oral.Susp) 30 ml PO DAILY PRN PRN Reason: Constipation Metoprolol Tartrate (Metoprolol Tartrate 25 Mg Tablet) 25 mg PO BID [facility]CLUDES [facility]; Protocol Last Admin: 11/01/22 08:29 Dose: 25 mg Olanzapine (Olanzapine 5 Mg Tablet) 5 mg PO Q4H PRN PRN Reason: Psychosis Last Admin: 10/31/22 13:45 Dose: 5 mg Olanzapine (Olanzapine 10 Mg Tablet) 20 mg PO BEDTIME [facility]CLUD[facility] Last Admin: 10/31/22 20:50 Dose: 20 mg Omeprazole (Omeprazole 20 Mg Capsule.Dr) 20 mg PO BID@0630,1630 [facility] Last Admin: 11/01/22 08:30 Dose: 20 mg Trazodone HCl (Trazodone Hcl 50 Mg Tablet) 50 mg PO BEDTIME MRX1 PRN PRN Reason: Insomnia Last Admin: 10/31/22 20:50 Dose: 50 mg Allergies Allergies Allergy/AdvReac Type Severity Reaction Status Date / Time oxaprozin [From Daypro] Allergy Rash Verified 10/15/22 13:34 Sulfa (Sulfonamide Allergy Rash Verified 10/15/22 13:33 Antibiotics) tramadol [From Ultram] Allergy Rash Verified 10/15/22 13:34 Assessment & Plan Assessment & Plan (1) Catatonia: Status: Suspected Code(s): F06.1 - Catatonic disorder due to known physiological condition (2) Psychosis: Status: Acute Code(s): F29 - Unspecified psychosis not due to a substance or known physiological condition Plan 10/24: ativan 2 mg TID for catatonia. IM as needed if unable to take PO. 10/25: Olanzapine p.r.n. unclear if Haldol contributed to catatonic like symptoms. 10/26: olanzapine 7.5 mg po QHS 10/27: much improved on regimen of olanzapine and ativan. as catatonia has resolved, begin ativan taper. decrease deom 2 mg TID to 1.5 mg TID today. sec12b matures 10/29. 10/28: denies severe Sx yet also acknowledges AH telling her she will if she goes to sleep, which is making her not want to sleep. taper ativan from 1.5 TID to 1 TID. increase HS olanzapine to 10 mg. 10/29: retracted 3-day notice, submitted another which comes due on thursday. agreeable to increase zyprexa to 20 mg at HS. continue ativan at current dosing for now. T/C mood stabilizer if condition does not improve in the next couple of days. 10/30: continues tearful, c/o AH. agreeable to start tegretol for mood stabilization, 200 mg BID. ativan decreased from 1 mg TID to 1 mg BID today. will taper further tomorrow, DC prior to discharge. 3-day notice matures thursday. 10/31: calm, cooperative. not crying today, more visible in milieu. still flat and superficial. hoping for thursday discharge. 11/01: Continue current regimen and plans Reason for contiued inpatient stay Substantial Risk for: med/psych decompensation Time Spent With Patient Time: Total time managing care of this patient today ____ minutes.
[2022-11-01] MEDS: OLANZapine 5 MG TABLET PO ×2 (11:17→17:16)
[2022-11-01] MEDS: Acetaminophen 325 MG TABLET 650 MG PO (11:22)
[2022-11-01 19:45] VITALS: BP 115/55; PULSE 105; RESP 18; TEMP 36.4; O2SAT 96
[2022-11-01] MEDS: OLANZapine 10 MG TABLET 20 MG PO (20:56)
[2022-11-02] MEDS: carBAMazepine ER 200 MG TAB.ER.12H PO ×2 (09:10→20:12)
[2022-11-02] MEDS: LORazepam 0.5 MG TABLET PO (09:11)
[2022-11-02] MEDS: Metoprolol Tartrate 25 MG TABLET PO ×2 (09:11→20:12)
[2022-11-02] MEDS: Omeprazole 20 MG CAPSULE.DR PO ×2 (09:11→15:44)
[2022-11-02 09:13] VITALS: BP 123/63; PULSE 100; TEMP 36.6; O2SAT 94
--- NOTE | 2022-11-02 09:32 | HO.PSYCHPN ---
Subjective Subjective Date of Service: 11/02/22 Reason For Visit: psychosis catatonia Subjective Notes: Conditional Voluntary Healthcare Proxy: No Guardianship: No Medical Problems Affecting Mental Status: No Interim History: Patient was seen and discussed in rounds today. Records and plans were reviewed. She is excited about her possible discharge tomorrow which has been planned. She continues to have some response to internal stimuli but no longer yelling and shouting in her response. She is isolative. Some self dialogue present. Eating and sleeping adequately. No complaints or side effects. No changes were made Medication Compliance: Yes Side effects from medications: No Attending Groups: Yes Review of Systems Review of Systems Yes all other systems are reviewed and are negative Mental Status Exam Mental Status Exam Narrative: In today's visit she is alert, oriented and pleasant. Normal speech. Moderate eye contact. Affect is constricted. No overt signs of psychosis but admits to some auditory hallucinations and has been observed to be responding to internal stimuli. Cognitively is grossly intact. Judgment is intact Diagnostics Vital Signs (24Hr): Vital Signs - 24 hr 11/01/22 19:45 11/02/22 09:13 Temperature 97.6 F 97.9 F Pulse Rate 105 H 100 Respiratory Rate 18 Blood Pressure 115/55 L 123/63 Pulse Oximetry 96 94 Oxygen Delivery Method Room Air Room Air BMI result Body Mass Index 37.2 Labs 10/22/22 19:29 10/22/22 19:29 Medications Medications Current Medications Acetaminophen (Acetaminophen 325 Mg Tablet) 650 mg PO Q6H PRN PRN Reason: Headache/Pain Mild Scale (1-3) Last Admin: 11/01/22 11:22 Dose: 650 mg Al Hydroxide/Mg Hydroxide (Magnesium Hydrox/Alum Hydrox 30 Ml Oral.Susp) 30 ml PO Q6H PRN PRN Reason: Heartburn/Nausea Carbamazepine (Carbamazepine Er 200 Mg Tab.Er.12h) 200 mg PO BID [facility] Last Admin: 11/02/22 09:10 Dose: 200 mg Hydroxyzine HCl (Hydroxyzine Hcl 25 Mg Tablet) 25 mg PO Q6H PRN PRN Reason: Anxiety Last Admin: 10/31/22 13:45 Dose: 25 mg Magnesium Hydroxide (Milk Of Magnesia 30 Ml Oral.Susp) 30 ml PO DAILY PRN PRN Reason: Constipation Metoprolol Tartrate (Metoprolol Tartrate 25 Mg Tablet) 25 mg PO BID [facility]; Protocol Last Admin: 11/02/22 09:11 Dose: 25 mg Olanzapine (Olanzapine 5 Mg Tablet) 5 mg PO Q4H PRN PRN Reason: Psychosis Last Admin: 11/01/22 17:16 Dose: 5 mg Olanzapine (Olanzapine 10 Mg Tablet) 20 mg PO BEDTIME [facility] Last Admin: 11/01/22 20:56 Dose: 20 mg Omeprazole (Omeprazole 20 Mg Capsule.Dr) 20 mg PO BID@0630,1630 [facility] Last Admin: 11/02/22 09:11 Dose: 20 mg Trazodone HCl (Trazodone Hcl 50 Mg Tablet) 50 mg PO BEDTIME MRX1 PRN PRN Reason: Insomnia Last Admin: 10/31/22 20:50 Dose: 50 mg Allergies Allergies Allergy/AdvReac Type Severity Reaction Status Date / Time oxaprozin [From Daypro] Allergy Rash Verified 10/15/22 13:34 Sulfa (Sulfonamide Allergy Rash Verified 10/15/22 13:33 Antibiotics) tramadol [From Ultram] Allergy Rash Verified 10/15/22 13:34 Assessment & Plan Assessment & Plan (1) Catatonia: Status: Suspected Code(s): F06.1 - Catatonic disorder due to known physiological condition (2) Psychosis: Status: Acute Code(s): F29 - Unspecified psychosis not due to a substance or known physiological condition Plan 10/24: ativan 2 mg TID for catatonia. IM as needed if unable to take PO. 10/25: Olanzapine p.r.n. unclear if Haldol contributed to catatonic like symptoms. 10/26: olanzapine 7.5 mg po QHS 10/27: much improved on regimen of olanzapine and ativan. as catatonia has resolved, begin ativan taper. decrease deom 2 mg TID to 1.5 mg TID today. sec12b matures 10/29. 10/28: denies severe Sx yet also acknowledges telling her she will if she goes to sleep, which is making her not want to sleep. taper ativan from 1.5 TID to 1 TID. increase HS olanzapine to 10 mg. 10/29: retracted 3-day notice, submitted another which comes due on thursday. agreeable to increase zyprexa to 20 mg at HS. continue ativan at current dosing for now. T/C mood stabilizer if condition does not improve in the next couple of days. 10/30: continues tearful, c/o AH. agreeable to start tegretol for mood stabilization, 200 mg BID. ativan decreased from 1 mg TID to 1 mg BID today. will taper further tomorrow, DC prior to discharge. 3-day notice matures thursday. 10/31: calm, cooperative. not crying today, more visible in milieu. still flat and superficial. hoping for thursday discharge. 11/01: Continue current regimen and plans 11/02: Continue current plans and regimen Reason for contiued inpatient stay Substantial Risk for: med/psych decompensation Time Spent With Patient Time: Total time managing care of this patient today ____ minutes.
[2022-11-02] MEDS: OLANZapine 5 MG TABLET PO ×2 (10:46→15:44)
[2022-11-02] MEDS: Acetaminophen 325 MG TABLET 650 MG PO (12:23)
[2022-11-02] MEDS: hydrOXYzine HCL 25 MG TABLET PO (15:44)
[2022-11-02] MEDS: OLANZapine 10 MG TABLET 20 MG PO (20:11)
[2022-11-02] MEDS: traZODone HCL 50 MG TABLET PO (20:12)
[2022-11-02 20:17] VITALS: BP 118/63; PULSE 106; RESP 16; O2SAT 95
[2022-11-03] MEDS: Metoprolol Tartrate 25 MG TABLET PO (09:08)
[2022-11-03] MEDS: carBAMazepine ER 200 MG TAB.ER.12H PO (09:08)
[2022-11-03] MEDS: Omeprazole 20 MG CAPSULE.DR PO (09:09)
[2022-11-03 09:48] VITALS: BP 148/85; PULSE 101; RESP 16; TEMP 36.7; O2SAT 98
[2022-11-03] MEDS: hydrOXYzine HCL 25 MG TABLET PO (10:45)
[2022-11-03] MEDS: OLANZapine 5 MG TABLET PO (10:45)
--- NOTE | 2022-11-03 11:12 | PM.PSYDC ---
DS: Providers Provider Date of Service: 11/03/22 Date of admission: 10/23/22 18:19 Primary care physician: [facility] DS: Diagnosis Discharge Diagnosis (1) Catatonia: Status: Suspected (2) Psychosis: Status: Acute DS: Medications Discharge Medications Home Medications: Previous Rx's Medication Instructions Recorded metoprolol tartrate 25 mg tablet 25 mg PO BID #60 tabs 10/22/22 omeprazole 20 mg capsule,delayed 1 cap PO BID #60 caps 10/22/22 release carbamazepine 200 mg 200 mg PO BID 30 days #60 tabs 11/03/22 tablet,extended release,12 hr olanzapine 10 mg tablet 20 mg PO BEDTIME 30 days #60 tabs 11/03/22 olanzapine 5 mg tablet 5 mg PO BID PRN Psychosis 30 days 11/03/22 #60 tabs Mental Status Exam Mental Status Exam Narrative: Appearance: wearing hospital gown, in NAD Behavior: cooperative Speech: clear, decr rate and amount Psychomotor: perhaps general PMR TP: linear TC: feeling better Mood: good Affect: flat SI/SIBI: none HI: none VH/AH: denies AVH today Delusions: no overt delusional content Insight/judgment: fair x 2. Memory/cog: alert, oriented x 3. grossly intact to conversational testing. DS: Summary Hospital Course Hospital Course: per 10/24 admission note: pt had been admitted to from 10/16 through 10/22, when she was discharged.? per 10/22 discharge summary: Ms. 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 In the ED, utox positive for cocaine. On the unit, pt present as anxious and restless. She reports hearing voices telling her that she will be killed, and derogatory statements. She reports voices on and off for some months. She was on POPE of invega sustenna with good effect. She reports suicidal ideation but denies any plan to harm herself while on the unit. She reports poor sleep and appetite. Past Psychiatric History: Inpt: [facility] 2022 OP: none Past medication trials; paliperidone. Medical Evaluation Reviewed: Yes HOSPITAL COURSE On the unit, pt was admitted on a CV and placed on 15 minutes checks for safety. Pt reported hearing voices and feeling overwhelmed with voices. After discussing risks, benefits and alternative treatment options, pt agreed to restart paliperidone. She continued to hear voices, added low dose haldol. Pt reported less voices and mostly hearing mumbles. No SI/HI. No signs of aggression towards self or others. There were no incidences of disruptive behaviors nor need for restraints. Pt agreed to step down to senior care. she re-presented to [facility] ED 11/21 within 4 hours of discharge with symptoms similar to her presentation on 10/16, per CARE team report.? she developed catatonia within a day and was then referred for admission to the inpatient mental health unit. on attempted interview by , she is able to respond to loud voice by opening her eyes, but she makes no reply to questions and does not move.? she received ativan 2 mg IM yesterday at 3 pm for catatonia, and another 2 mg again last evening for the same. Past Psychiatric History: Discharged from on 10/22/22; returned later that day Inpt: [facility] 2022 OP: none Past medication trials; paliperidone; haldol Medical Evaluation Reviewed: Yes [facility] Medical History? Fibromyalgia Hypertension IBS (irritable bowel syndrome) Suicide attempt Family History: denies Social History: currently homeless. Substance History: cocaine on and off for years Trauma History: not disclosed Precis: 10/24:? ativan 2 mg TID for catatonia.? IM as needed if unable to take PO. 10/25:? Olanzapine p.r.n. unclear if Haldol contributed to catatonic like symptoms. 10/26:? olanzapine 7.5 mg po QHS 10/27:? much improved on regimen of olanzapine and ativan.? as catatonia has resolved, begin ativan taper.? decrease from 2 mg TID to 1.5 mg TID today.? sec12b matures 10/29. 10/28:? denies severe Sx yet also acknowledges AH telling her she will if she goes to sleep, which is making her not want to sleep.? taper ativan from 1.5 TID to 1 TID.? increase HS olanzapine to 10 mg. 10/29:? retracted 3-day notice, submitted another which comes due on thursday.? agreeable to increase zyprexa to 20 mg at HS.? continue ativan at current dosing for now.? T/C mood stabilizer if condition does not improve in the next couple of days. 10/30:? continues tearful, c/o AH.? agreeable to start tegretol for mood stabilization, 200 mg BID.? ativan decreased from 1 mg TID to 1 mg BID today.? will taper further tomorrow, DC prior to discharge.? 3-day notice matures thursday. 10/31: calm, cooperative.? not crying today, more visible in milieu.? still flat and superficial.? hoping for thursday discharge. 11/01: Continue current regimen and plans 11/02: Continue current plans and regimen 11/03: calm, cooperative today. flat, denying Sx today. per staff, was crying yesterday and yelling out against AH. discharge as 3-day notice has matured and pt is not committable currently. Time Spent with Patient Time attestation: Total time managing care of this patient today ____ minutes. Time spent: Greater than 30 minutes Discharge Plan Discharge Anticipated Discharge Date/Time: 11/03/22 11:02 Patient Disposition: Penitentiary Discharge Diagnosis: Schizoaffective Disorder, Bipolar Type Referrals: Asha Capone (therapy intake) [Other] - 11/10/22 3:00 pm (In office appointment. You will be scheduled with a psychiatry appointment upon completion of your intake) [place],[facility] [Primary Care Provider] - 1 Week Discharge Medications: New olanzapine 10 mg Tablet 20 mg PO BEDTIME 30 Days Qty: 60 0RF carbamazepine 200 mg Tablet Extended Release 12 Hr 200 mg PO BID 30 Days Qty: 60 0RF olanzapine 5 mg Tablet 5 mg PO BID PRN (Reason: Psychosis) 30 Days Qty: 60 0RF Continued metoprolol tartrate 25 mg Tablet 25 mg PO BID Qty: 60 0RF Protocol: Hold for SBP/HR < HOLD for SBP < : 90 HOLD for HR < : 60 omeprazole 20 mg capsule,delayed release(DR/EC) 1 cap PO BID Qty: 60 0RF Discontinued haloperidol 2 mg tablet 2 mg PO BID Qty: 60 0RF paliperidone [Invega] 6 mg Tablet Extended Release 24 Hr 6 mg PO DAILY Qty: 30 0RF trazodone 150 mg tablet 150 mg PO BEDTIME Qty: 30 0RF Discharge Orders: Discharge Order (Routine); Ordered 11/03/22 Ordered By: Quincy Mayers Diet: Advance to usual diet Activity on Discharge: As tolerated Stand Alone Forms: Patient Portal Discharge page, Community Support Activity Restrictions/Additional Instructions: Continue with outpatient psychiatry as scheduled. Thank you for choosing this emergency department for evaluation. Please follow-up with primary care physician as needed. Return to the emergency department for any new, concerning, or worsening symptoms. Care Plan Goals: remain safe and stable in the outpatient treatment setting Health Concerns: HTN GERD Plan of Treatment: take medications as prescribed, attend appointments as scheduled Assessment: not at imminent risk of harm to self or others Patient Instructions: Depression (ED), Hallucinations (ED), Psychotic Disorder (ED) Discharge Date/Time: 11/03/22 11:30
== END 2022-11-03 11:30 | disposition home or self-care (01) | DRG 880 ==
LOC: HO.ED 21:09 → HO.PADLT16 10-23 18:23
PROVIDERS: Nurse Practitioner Family; Admitting Provider Psychiatry & Neurology Psychiatry; Emergency Provider Emergency Medicine Emergency Medical Services; Visit Provider Psychiatry & Neurology Psychiatry
DX: R45.851 Suicidal ideations (principal); F29 Unspecified psychosis not due to a substance or known physiological condition; M79.7 Fibromyalgia; F06.1 Catatonic disorder due to known physiological condition; I10 Essential (primary) hypertension; Z20.822 Contact with and (suspected) exposure to COVID-19; Z88.2 Allergy status to sulfonamides; Z88.5 Allergy status to narcotic agent; Z88.8 Allergy status to other drugs, medicaments and biological substances; Z79.899 Other long term (current) drug therapy
CPT/HCPCS: 36415; 80053; 80143; 80179; 80307; 81001; 81025; 82077; 85025; 87635; 99285; J2060; S9485

== ENCOUNTER 2023-11-01 23:59 | Outpatient (BNV) | payer OTHER, SELFPAY | END 2023-11-02 23:59 | PROVIDERS: Visit Provider Internal Medicine | DX: R07.9 Chest pain, unspecified (principal) | CPT/HCPCS: 99223 ==